=== PATIENT | male | born 1930 | race Caucasian/White ===

== ENCOUNTER 2016-12-10 13:59 | Inpatient (IN) | payer OTHER, MEDICARE ==
[~2016-12-10] VITALS: Ht 162.6 cm; Wt 56.2 kg
--- NOTE | 2016-12-10 14:10 | NUR ---
PT BIBA FROM HOME FOR WEAKNESS. PT REPORTED WHEN HE SITS IN HIS CHAIR FOR TOO LONG HE HAS DIFFICULTY STANDING UP. WHEN HE ATTEMPTED TO STAND HE WAS UNABLE TO. VISITING NURSE CALLED AMBULANCE TO TRANSPORT FOR EVALUATION. UPON ARRIVAL TO ED, PT DENIED HAVING ANY COMPLAINTS. DENIED SYNCOPE AND FEELING FAINT DURING INCIDENT. DENIED C/P AND SOB.
--- NOTE | 2016-12-10 14:11 | NUR ---
OMID RUSSELL AT BEDSIDE FOR EVAL
--- NOTE | 2016-12-10 14:16 | ED AMS/SEIZURE/WEAK/DIZZY ---
History of Present Illness General Chief Complaint: General Adult Stated Complaint: BIBA GENERALIZED WEAKNESS Source: patient, old records, EMS Exam Limitations: no limitations Vital Signs & Intake/Output Vital Signs & Intake/Output Vital Signs Date Time Temp Pulse Resp B/P B/P Pulse O2 O2 Flow FiO2 Mean Ox Delivery Rate 12/10 1526 97.9 70 22 207/95 100 Room Air 12/10 1442 69 198/91 12/10 1435 Room Air 12/10 1405 97.5 86 16 173/94 97 Room Air Allergies Coded Allergies: acetaminophen (From PERCOCET) (UNKNOWN 12/10/16) oxycodone (From PERCOCET) (UNKNOWN 12/10/16) Reconcile Medications Amlodipine Besylate (Unknown Strength) TABLET (Unknown Dose) PO DAILY HEART ( Reported) Diclofenac Sodium (Unknown Strength) TABLET.DR (Unknown Dose) PO BID PAIN ( Reported) Hydralazine HCl 25 MG TABLET 1 TAB PO BID HEART (Reported) Levothyroxine Sodium (Levo-T) 25 MCG TABLET 1 TAB PO DAILY AC THYROID ( Reported) Metoprolol Succinate (Unknown Strength) TAB.ER.24H (Unknown Dose) PO DAILY HEART (Reported) Simvastatin (Simvastatin*) 40 MG TABLET 1 TAB PO QPM CHOLESTEROL (Reported) Sodium Bicarbonate 650 MG TABLET 2 TAB PO BID SUPPLEMENT (Reported) Triage Note: PT BIBA FROM HOME FOR WEAKNESS. PT REPORTED WHEN HE SITS IN HIS CHAIR FOR TOO LONG HE HAS DIFFICULTY STANDING UP. WHEN HE ATTEMPTED TO STAND HE WAS UNABLE TO. VISITING NURSE CALLED AMBULANCE TO TRANSPORT FOR EVALUATION. UPON ARRIVAL TO ED, PT DENIED HAVING ANY COMPLAINTS. DENIED SYNCOPE AND FEELING FAINT DURING INCIDENT. DENIED C/P AND SOB. Triage Nurses Notes Reviewed? yes HPI: Patient is an 86-year-old male brought in by ambulance for evaluation of weakness. Patient reports that he was sitting for a prolonged period of time and he felt that his legs were too weak for him to be able to stand up from his chair. On EMS arrival clinical case manager report that when they attempted to stand the patient and ambulate him that he was very unsteady on his feet. Chronic bilateral lower extremity edema, unchanged from baseline per patient. Mild intermittent cough. Pain is 0 out of 10. Patient denies chest pain, dyspnea, abdominal pain, nausea , vomiting, diarrhea, fevers, chills. (EMI PÉREZ) Past History Medical History Any Pertinent Medical History? see below for history Cardiovascular: CAD, hypertension, hyperlipidemia Gastrointestinal: diverticulosis, ATROPHIC GASTRITIS Renal: chronic kidney disease Musculoskeletal: gout Other Medical Hx: paget disease Pneumonia Vaccine: 05/14/02 Influenza Vaccine: 06/23/07 Surgical History Surgical History: CABG, RIGHT INGUINAL HERNIA REPAIR Psychosocial History Who do you live with Patient/Self Services at Home NONE What is your primary language Nepalese Family History Hx Contributory? No (EMI PÉREZ) Review of Systems Review of Systems Constitutional: Reports: weakness. Denies: chills, fever. EENTM: Reports: no symptoms. Respiratory: Reports: cough. Denies: short of breath. Cardiovascular: Reports: peripheral edema (CHRONIC, UNCHANGED). Denies: chest pain, palpitations, syncope. GI: Denies: abdominal pain, diarrhea, nausea, vomiting. Genitourinary: Reports: no symptoms. Musculoskeletal: Reports: no symptoms. Skin: Reports: no symptoms. Neurological/Psychological: Reports: weakness. Denies: headache, numbness, unable to move lower ext, unable to move upper ext. Hematologic/Endocrine: Denies: bruising, bleeding. Immunologic/Allergic: Denies: splenectomy. (EMI PÉREZ) Physical Exam Physical Exam General Appearance: alert, awake Head: atraumatic, normal appearance Eyes: Bilateral: normal appearance, PERRL, EOMI. Ears, Nose, Throat: hard of hearing. moist mucous membranes, pharynx normal Neck: normal inspection, supple, full range of motion Respiratory: no respiratory distress, mild diffuse rhonchi and rales Cardiovascular: regular rate/rhythm (with premature beats), systolic murmur Peripheral Pulses: 2+ dorsalis pedis (R), 2+ dorsalis pedis (L) Gastrointestinal: soft, non-tender Back: normal inspection, normal range of motion, no vertebral tenderness Extremities: normal range of motion, 2+ bilateral lower extremity edema Neurologic/Psych: awake, alert, oriented x 3, communications department chairperson II-XII nml as tested Skin: warm/dry Lymphatic: no anterior cervical charly Core Measures ACS in differential dx? Yes ASA ordered for poss ACS? No-ACS ruled out CVA/TIA Diagnosis: No Severe Sepsis Present: No Septic Shock Present: No (EMI PÉREZ) Progress Differential Diagnosis: arrythmia, anemia, CVA/stroke, dehydration, encephalitis , electrolyte imbalance, GI bleed, hypoglycemia, hypoxia, intracranial Hem., intracranial mass/tumor, multiple sclerosis, pneumonia, postural hypotension, presyncope, sepsis, UTI/pyelo, vertebrobasilar insuff Plan of Care: Orders Procedure Date/time Status Patient Data 12/10 1524 Active Telemetry/Specimen Preparation Assistant 12/10 1521 Active Admit to inpatient 12/10 1520 Active URINALYSIS 12/10 1412 Active TROPONIN LEVEL 12/10 1412 Complete COMPREHENSIVE METABOLIC PANEL 12/10 1412 Complete CBC WITHOUT DIFFERENTIAL 12/10 1412 Complete B-TYPE NATRIURETIC PEP (BNP) 12/10 1412 Complete MISTAKE 12/10 1404 Active EKG 12/10 1402 Active Laboratory Tests 12/10/16 1430: Anion Gap 14, Estimated GFR 16 L, BUN/Creatinine Ratio 16.1, Glucose 121 H, Calcium 7.1 L, Total Bilirubin 0.5, AST 13 L, ALT 17 L, Alkaline Phosphatase 142 H, Troponin I 0.05, Svt-V-Hjwxumoewwj Pept 5100 H, Total Protein 5.8 L, Albumin 2.7 L, Globulin 3.1, Albumin/Globulin Ratio 0.9 L, CBC w Diff NO MAN DIFF REQ, RBC 3.08 L, MCV 94.4 H, MCH 31.5 H, RDW 13.9, MPV 9.2, Gran % 71.9, Lymphocytes % 20.4 L, Monocytes % 6.6, Eosinophils % 0.7, Basophils % 0.4, Absolute Granulocytes 5.0, Absolute Lymphocytes 1.4, Absolute Monocytes 0.5, Absolute Eosinophils 0, Absolute Basophils 0, PUBS MCHC 33.3 12/10/2016 3:14:54 PM: Results of chest x-ray and labs discussed with patient. Patient was very unsteady on his feet and unable to stand for more than a few seconds during orthostatics. Discussed with Dr. Mcintosh. Likely admission. Troponin and BNP pending. 12/10/2016 3:20:24 PM: Dr. Mcintosh discussed patient with Dr. Jose Rausch for admission. (YVONNE ANNE,EMI) Diagnostic Imaging: Viewed by Me: Radiology Read. Discussed w/RAD: Radiology Read. CXR Impression: PATIENT: SHARONDA AQUINO PRESENT AGE: 86 PATIENT ACCOUNT NO: [id number] : 30 LOCATION: [facility] ORDERING PHYSICIAN: EMI ANNE SERVICE DATE: 12/10/16 EXAM TYPE: RAD - XRY-PORTABLE CHEST XRAY EXAMINATION: XR PORTABLE CHEST CLINICAL INFORMATION: Cough, bilateral lower extremity edema. Rales and rhonchi on examination. Evaluate for pneumonia, CHF. COMPARISON: No relevant prior studies are available for comparison. TECHNIQUE: Portable AP view of the chest was obtained. FINDINGS: Mild increased interstitial markings. Prominence of the perihilar vasculature. No significant pleural effusion. No pneumothorax. Enlargement of cardiomediastinal silhouette. Sternal wires are noted. IMPRESSION: Mild increased interstitial markings, prominence of the perihilar vasculature, and cardiomegaly, which could represent CHF. DICTATED BY: CONRAD ARORA MD DATE/ TIME DICTATED:12/10/161448 AIRCRAFT TOOL MAKER:GRAHAM DATE/TIME TRANSCRIBED: 12/10/161448 CONFIDENTIAL, DO NOT COPY WITHOUT APPROPRIATE AUTHORIZATION. < Electronically signed in Other Vendor System> SIGNED BY: CONRAD ARORA MD 12/10/16 7151 Initial ED EKG: sinus rhythm 79 bpm, RBBB, q waves inferior leads, multiple PAC' s, inverted t waves lead 3 that were not present on previous ekg Prior EKG: changed Rhythm Strip: normal sinus rhythm, PAC (EMI PÉREZ) Departure Departure Time of Disposition: 1518 Disposition: STILL A PATIENT Condition: Stable Clinical Impression Primary Impression: CHF exacerbation Secondary Impressions: Accelerated hypertension, Chronic anemia, CKD (chronic kidney disease) Referrals: UNKNOWN Departure Forms: Customer Survey General Discharge Information (EMI PÉREZ) Admission Note Spoke With: JOSE RAUSCH MD Documentation of Exam: Documentation of any treatments & extenuating circumstances including Concerns Regarding Discharge (functional status, medication knowledge or non-compliance, living conditions, etc.) that warrant an admission rather than observation: [ Telemetry monitoring, cardiology consultation, IV diuresis, nephrology consultation PT evaluation, serial enzymes] PA/AD WRITER Co-Sign Statement Statement: ED Attending supervision documentation- [X] I saw and evaluated the patient. I have also reviewed all the pertinent lab results and diagnostic results. I agree with the findings and the plan of care as documented in the PA's/AD WRITER's documentation. [X] I have reviewed the ED Record and agree with the PA's/AD WRITER's documentation. [] Additions or exceptions (if any) to the PAs/AD WRITER's note and plan are summarized below: [] (DEVANTE RICKS,EAGLE Najera)
--- NOTE | 2016-12-10 14:38 | NUR ---
PORTABLE X-RAY AT BEDSIDE
[2016-12-10 14:50] LABS: ABSOLUTE BASOPHIL COUNT 0 /CUMM (0.0-0.2); ABSOLUTE EOSINOPHIL COUNT 0 /CUMM (0.0-0.7); ABSOLUTE LYMPH COUNT 1.4 /CUMM (1.2-3.4); ABSOLUTE MONOCYTE COUNT 0.5 /CUMM (0.10-0.60); BASOPHIL % 0.4 % (0.0-2.0); EOSINOPHIL % 0.7 % (0-5); GRANULOCYTE % 71.9 % (42.2-75.2); HEMATOCRIT 29.1 % (42-52); MEAN CORPUSCULAR HGB 31.5 PG (27.0-31.0); MEAN CORPUSCULAR HGB CONC 33.3 G/DL (33.0-37.0); MEAN CORPUSCULAR VOLUME 94.4 FL (80.0-94.0); MEAN PLATELET VOLUME 9.2 FL (7.4-10.4); PLATELET COUNT 126 /CUMM (130-400); RBC DISTRIBUTION WIDTH 13.9 % (11.5-14.5); RED BLOOD CELL CT 3.08 /CUMM (4.70-6.10); WHITE BLOOD CELL COUNT 6.9 /CUMM (4.8-10.8)
--- NOTE | 2016-12-10 14:51 | NUR ---
ORTHOSTATIC BPS ASSESSED. PT NOT ORTHOSTATIC. PT DENIED DIZZINESS, SOB, AND PAIN DURING ASSESSMENT. PT REQUIRED ASSISTANCE FROM BOTH DIONNE PATRICIA AND MYSELF TO STAND. PT WASN'T ABLE TO STAND FOR THE TIME IT TOOK TO ASSESS BP. OMID RUSSELL INFORMED
--- NOTE | 2016-12-10 14:59 | RADIOLOGY REPORT ---
EXAMINATION: XR PORTABLE CHEST CLINICAL INFORMATION: Cough, bilateral lower extremity edema. Rales and rhonchi on examination. Evaluate for pneumonia, CHF. COMPARISON: No relevant prior studies are available for comparison. TECHNIQUE: Portable AP view of the chest was obtained. FINDINGS: Mild increased interstitial markings. Prominence of the perihilar vasculature. No significant pleural effusion. No pneumothorax. Enlargement of cardiomediastinal silhouette. Sternal wires are noted. IMPRESSION: Mild increased interstitial markings, prominence of the perihilar vasculature, and cardiomegaly, which could represent CHF.
[2016-12-10] MEDS ORDERED: DICLOFENAC SODI50 M3 PO (15:01)
[2016-12-10] MEDS ORDERED: SODIUM BICARBO650 M1 PO (15:02)
[2016-12-10] MEDS ORDERED: METOPROLOL SUCC50 M2 PO (15:03)
[2016-12-10] MEDS ORDERED: SIMVASTATIN40 M1 PO (15:03)
[2016-12-10] MEDS ORDERED: LEVO-T25 MCG PO (15:04)
[2016-12-10] MEDS ORDERED: AMLODIPINE BESYL5 M1 PO (15:04)
[2016-12-10] MEDS ORDERED: HYDRALAZINE HCL25 M1 PO (15:06)
--- NOTE | 2016-12-10 15:30 | NUR ---
ASSUMED CARE OF PT WHO IS ALERT, SITTING UP ON STRETCHER IN NAD. IV PLACED, MEDICATED FOR HTN. URINAL AT BEDSIDE. PT ABLE TO USE PHONE TO LEAVE MS FOR HIS DTR. AWARE OF PENDING ADMISSION.
--- NOTE | 2016-12-10 15:57 | NUR ---
PT HAS BED ASSIGNMENT 179-2
--- NOTE | 2016-12-10 16:02 | NUR ---
HOUSE STAFF AT BEDSIDE
--- NOTE | 2016-12-10 16:28 | History & Physical ---
ASHLEY MCCABEJAI 12/10/16 1628: General Information and HPI MD Statement: I have seen and personally examined SHARONDA CASTRO and documented this H&P. The patient is a 86 year old M who presented with a patient stated chief complaint of weakness, inability to stand. Source of Information: patient, old records Exam Limitations: no limitations History of Present Illness: Mr Castro, is an 86-year-old man who was known to be in his usual state of health until this a.m. He has a past medical history of CAD s/p CABG( dx'ed 1987), hypertension, hyperlipidemia, CKD, Paget disease, gout. He was brought from his senior housing facility with a chief concern of inability to get out of his recliner chair after prolonged period of sitting 1 day. As per the patient, he reported inability to stand up from his chair after being seen recliner chair for a few hours; felt weak in his lower extremities, and was helped out of his chair. He reported worsening bilateral leg swelling 2 weeks, with no change in his usual ambulation. Also reported cough 2 weeks, nonproductive, occasional. No orthopnea or PND. No chest pain, palpitations, lightheadedness/dizziness, hemoptysis. Does not use any oxygen at home. No change in urinary output in the recent past. No fever or exposure to any sick contacts. Did not report any shortness of breath at all. No nausea or vomiting. No melena or bleeding per rectum. Lives alone in a senior housing facility, uses a walker for ambulation. Reports compliance to medications. Remote history of smoking, no history of alcohol. The patient is hard of hearing. Allergies/Medications Allergies: Coded Allergies: acetaminophen (From PERCOCET) (UNKNOWN 12/10/16) oxycodone (From PERCOCET) (UNKNOWN 12/10/16) Past History Travel History Traveled to [place] past 21 day No Medical History Cardiovascular: CAD, hypertension, hyperlipidemia Gastrointestinal: diverticulosis ATROPHIC GASTRITIS Renal: chronic kidney disease Musculoskeletal: gout Other Medical Hx: paget disease Pneumonia Vaccine: 05/14/02 Influenza Vaccine: 06/23/07 Surgical History Surgical History: CABG, RIGHT INGUINAL HERNIA REPAIR Past Family/Social History Family History Relations & Conditions if any Relation not specified for: *No pertinent family history Psychosocial History Services at Home: NONE Functional Ability ADLs Independent: dressing, eating, toileting, bathing. Ambulation: walker IADLs Independent: telephone. Unknown: shopping, housework, finances, food prep, transportation. Review of Systems Review of Systems Constitutional: Denies: see HPI, chills, fever, unexplained weight loss. EENTM: Denies: blurred vision, hearing changes. Cardiovascular: Reports: peripheral edema. Denies: chest pain, orthopena, palpitations, syncope. Respiratory: Reports: cough. Denies: hemoptysis, orthopnea, short of breath, sputum production, stridor, wheezing. GI: Denies: abdominal pain, melena, nausea, bloody stool, changes in stool. Genitourinary: Denies: frequency. Musculoskeletal: Denies: back pain. Skin: Denies: erythema. Neurological/Psychological: Denies: anxiety. Hematologic/Endocrine: Denies: bruising. Exam & Diagnostic Data Last 24 Hrs of Vital Signs/I&O Vital Signs Date Time Temp Pulse Resp B/P B/P Pulse O2 O2 Flow FiO2 Mean Ox Delivery Rate 12/10 2152 73 168/82 12/10 1750 98.3 73 18 168/82 97 Room Air 12/10 1602 71 24 159/85 99 Room Air 12/10 1530 97.9 70 22 207/95 12/10 1530 97.9 70 22 207/95 12/10 1526 97.9 70 22 207/95 100 Room Air 12/10 1442 69 198/91 12/10 1435 Room Air 12/10 1405 97.5 86 16 173/94 97 Room Air Intake & Output 12/10 1600 12/10 0800 12/10 0000 Intake Total Output Total Balance Patient 150 lb Weight Weight Reported by Patient Measurement Method Physical Exam General Appearance Alert, Oriented X3, Cooperative, No Acute Distress Skin No Breakdown Skin Temp/Moisture Exam: Warm/Dry Sepsis Skin Exam (color): Normal for Ethnicity HEENT Atraumatic, PERRLA, EOMI Neck Supple, No JVD, No thryomegaly, +2 Carotid Pulse wo Bruit, No LAD Lymphatic Cervical nl Cardiovascular Regular Rate, Normal S1, Normal S2, systolic murmur Lungs Normal Air Movement, bilateral crackles and wheezes heard. Abdomen Normal Bowel Sounds, Soft, No Tenderness, No Hepatospenomegaly Neurological Normal Speech, Strength at 5/5 X4 Ext, Normal Tone, Sensation Intact, Cranial Nerves 3-12 NL, Reflexes 2+ Extremities No Clubbing, No Cyanosis, No Edema, Normal Pulses, No Tenderness/ Swelling Vascular Normal Pulses, Pulses Symmetrical Body Front and Back (Adult) 1) Pedal edema 2) Surgical scar 3) Macular/raised lesions, erythematous, not associated with any drainage seen -multiple. Diagnostic Data EKG Results Heart rate 79, multiple PACs, QTC 487. CXR Results Mild increase in interstitial markings in in hilar vasculature Assessment/Plan Assessment: She is an older lady with a past history of coronary artery disease, hypertension, chronic kidney disease who is is being evaluated for inability to stand from a seated position, cough, worsening leg swelling likely due to fluid overload. At the time of admission, vitals temperature 97.5, blood pressure 173/94 ( improved to 159/85), pulse 86, respiratory rate 16, 100 % on room air. Lab findings included no leukocytosis, WBC 6.9, hemoglobin 9.7 (baseline 9.2 on 10/28 ), platelets low 126 (last platelet check 130-reason unclear, no history of alcohol or illicit drug use), normal electrolytes-sodium 137, potassium 4.7, elevated serum creatinine 3.6 (3.2 in 08/30), phosphorus 5.5, calcium 7.9 ( corrected calcium 8.9), albumin 2.7, proBNP 5100. Radiological findings-chest x-ray revealed mild increase in interstitial lung markings perihilar vasculature. Renal ultrasound 08/2016 revealed cortical atrophy bilaterally. Differential diagnosis: #1 CHF exacerbation (fluid overload) #2 worsening renal function- CKD stage IV Below is the problem list and plan: #1 weakness, leg swelling, cough-likely due to fluid overload. CHF exacerbation is in the differential. Repeat echocardiogram to be obtained, after discussing with the court registry officer (last echo was done 6 months ago). Recent use of diuretics by the primary care physician, previous concern for history of CHF. Both physical findings and radiological findings are suggestive of CHF. Patient received intravenous furosemide in the emergency room. Monitor kidney function closely. Check ins and outs. The patient continues to diurese well, and kidney function is stable, may consider further diuresis.CHF diet. #2 anemia lower H&H likely due to anemia of chronic disease. Iron studies, reticulocyte count, Hemoccult stools. #3 chronic kidney disease- elevated serum creatinine. Stage IV. Continue to monitor closely. Hypoperfusion from cardiac dysfunction is a possible explanation as opposed to dehydration. Loss of oncotic pressure, could have set this off to relative dehydration also. No albumin is indicated at this time, if so may try albumin plus Lasix after discussing with hydraulic jack operator (only after echocardiogram was done). Continue patient on sodium bicarbonate. #4 hypertension-continue to monitor closely. Metoprolol, amlodipine, hydralazine by mouth. #5 DVT prophylaxis-subcutaneous heparin. #5 DVT prophylaxis As Ranked By This Provider Problem List: 1. Accelerated hypertension 2. Chronic anemia 3. CKD (chronic kidney disease) 4. CHF exacerbation Core Measures/Miscellaneous Acute Coronary Syndrome ACS Diagnosis: No Cerebrovascular Accident CVA/TIA Diagnosis: No Congestive Heart Failure CHF Diagnosis: No Venous Thromboembolism VTE Risk Factors: Acute medical illness, Age > 40 [facility] prophylaxis d/t: No contraindications No VTE Pharm Prophylaxis d/t: No contraindications VTE Diagnosis: No VTE Type: NONE VTE Confirmed by (Test): NONE Severe Sepsis Severe Sepsis Present: No Septic Shock Septic Shock Present: No Miscellaneous Documentation Attending Case Discussed With: KURTIS RICKS,JOSE Rao Primary Care Physician: JORGE VASQUEZ MD Patient sees these Specialists Dr. Vasquez Level of Patient Care: Telemetry [facility] AIDA RICKS 12/10/16 1834: General Information and HPI Allergies/Medications Home Med list Amlodipine Besylate 5 MG TABLET 0.5 TAB PO DAILY HEART (Reported) Diclofenac Sodium 50 MG TABLET.DR 500 MG PO BID PAIN (Reported) Hydralazine HCl 25 MG TABLET 1 TAB PO BID HEART (Reported) Levothyroxine Sodium (Levo-T) 25 MCG TABLET 1 TAB PO DAILY AC THYROID ( Reported) Metoprolol Succ XL (Toprol XL) 25 MG TAB 1 TAB PO DAILY Heart (Reported) Simvastatin (Simvastatin*) 40 MG TABLET 1 TAB PO QPM CHOLESTEROL (Reported) Sodium Bicarbonate 650 MG TABLET 2 TAB PO BID SUPPLEMENT (Reported) Resident Review Statement Resident Statement: examined this patient, discussed with athletic training internship, agreed with athletic training internship, discussed with family, reviewed EMR data (avail), discussed with nursing , reviewed images, amended to note Other Findings: 86 yo male with pmh of CAD s/p CABG (1987) following Dr. Rausch, HTN, HLD, CKD stage [address] Em, gout, hx of paget's disease BIBA from home due to generalized weakness with difficulty of walking. Today he was sitting on a recliner around 2 hrs, and then he couldn't get up from the chair due to generalized weakness. He denies any chest pain or shortness of breath/orthopnea. He was active using his walker at baseline. He has dry cough for 2-3 weeks without fever/chills, sputum. He has chronic LE edema for 6 months, and he had renal US in . He's not taking any diuretics as home medication. V/S: 97.9F TX 70 RR 24 BP 159/85 99% on RA, alert, oriented, not in acute distress, decreased hearing, Lt. pupil size 5mm fixed (s/p cataract surgery), pale conjunctiva, EOM intact, no JVD, regular rate, normal S2/S2, bilateral crackles upper lungs, soft, non-tender abdomen, normal bowel sounds, 2+LE pitting edema with chronic erythematous skin changes (> 1yr), normal pulses, motor 5/5 moving all 4 extremities, sensation intact, cranial nerves grossly intact, Labs: Hb/Hct 9.7/29.1 MCV 94.4 Plt 126, K 4.7, Bicarb 16, BUN/Cr 58/3.6, trop 0.05, proBNP 5100, iron 49, TIBC 196 CXR: Mild increased interstitial markings, prominence of the perihilar vasculature, and cardiomegaly, which could represent CHF. EKG: polymorphic p waves SR 79, RBBB, old q waves inferior leads, multiple PAC's , isolated T inv lead III 1. Generalized weakness: pt has acute CHF with bilateral LE edema & macrocytic anemia (Last Hb 9.2 in ). Anemia most likely from CKD. Will check guiac stool, iron studies, Vit B12, folate. Will get PT evaluation. Fall precaution. 2. Acute CHF: pt was given IV lasix 20mg x once, pt has bilateral crackles with 2+ pitting edema. Will get cardiology consult, echocardiogram, serial EKG/ troponins, hold further diuresis for now, f/u BEP in AM and discuss lasix use. 3. Hypertensive urgency/Hx CAD s/p CABG:In ED, BP reaching 207/95, after po hydralazine BP decreased to 159/85. Monitor closely, keep SBP aroudn 160s to prevent rapid correction. Continue home dose po amlodipine, metoprolol, and hydralazine 4. Hypothyroidism: c/w levothyroxine 0.025mg daily, TFT within normal. 5. Thrombocytopenia: Plt 126, monitor plt with SC heparin. 6. CKD stage 4/metabolic acidosis: Worsening Cr (3.2 in October-> 3.6 now), will get nephrology consult. Continue bicarb. 7. HLD: c/w lipitor Pain pathway DVT ppx: SC heparin Full code. KURTIS RICKS,JOSE 12/11/16 0956: Attending MD Review Statement Attending Statement Attending MD Statement: examined this patient, discuss w/resident/PA/SUPERVISOR SCENIC ARTS, agreed w/resident/PA/SUPERVISOR SCENIC ARTS, reviewed EMR data (avail), discussed with nursing, discussed with case mgmt, reviewed images Attending Assessment/Plan: See medical brief addendum note dated 12/10/2016.
--- NOTE | 2016-12-10 16:28 | NUR ---
REPORT GIVEN TO MARCY ON [facility], WILL CALL TRANSPORT WHEN HOUSE STAFF EVAL IS COMPLETE.
[2016-12-10] MEDS ORDERED: TOPROL XL25 M1 PO (16:32)
--- NOTE | 2016-12-10 16:51 | Admission Certification ---
Admission Certification Certification Statement - As attending physician, I certify that at the time of - admission, based on clinical presentation, severity of - symptoms, need for further diagnostic testing and - therapeutic interventions, and risk of adverse outcomes - without in-hospital treatment, in my clinical assessment, - this patient requires an acute hospital stay for a minimum - of two nights or longer. I have also considered psychsocial - factors such as support system, advanced age, financial - issues, cognitive issues, and failed out-patient treatments, - past re-admission history, safety of patient, and lack of - compliance as applicable. Specific rationale supporting this admission is: Severe weakness and likely acute on chronic CHF.
--- NOTE | 2016-12-10 16:55 | PN- Att Addend ---
Attending Addendum Attending Brief Note 86-year-old male with past medical history of Paget's disease, gout, hypertension and CKD who lives in an assisted living facility and for the past 2 days or so has been feeling very weak and today the aide brought him in for weakness, difficulty ambulation and questionable worsening lower extremity edema. He has chronic edema, he is a poor informant so it's really hard to tell whether the leg swelling is worse but something has changed within the last 24- 48 hours that has made him profoundly weak. On exam he has some rales and rhonchi, and he has bilateral lower extremity edema. Labs are notable for SRIKANTH on CKD. He lives at creatinine in the 3-3.2 range and he appears to be 3.6 with an anion gap acidosis that's likely secondary to his CKD. Chest x-ray is being read as increased interstitial markings. His UA is pending and that appears to be no focus of infection. He had uncontrolled accelerated hypertension in the ER that responded to medications and chronic anemia. Of note he's been seeing Juventino Em MD since August for progression of his CKD. At this point will bring him into telemetry, I don't think we need to actively diurese him in fact I worry that will make his renal function worse. We need to control his blood pressure aggressively and continue his Norvasc, hydralazine and metoprolol. We need to check an echo to see his EF as I don't find any echo documented here. He's had a renal ultrasound in August that's ruled out an obstruction I don't think we need to repeat that but we need to trend his BUN and creatinine closely and call renal to see him. DVT prophylaxis, PT eval and follow-up.
[2016-12-10 17:50] VITALS: BP 168/82
[2016-12-11 00:08] VITALS: BP 140/70
[2016-12-11 07:57] VITALS: BP 158/84
[2016-12-11 09:55] LABS: ABSOLUTE BASOPHIL COUNT 0 /CUMM (0.0-0.2); ABSOLUTE EOSINOPHIL COUNT 0.1 /CUMM (0.0-0.7); ABSOLUTE GRANULOCYTE CT 6.7 /CUMM (1.4-6.5); ABSOLUTE LYMPH COUNT 1.6 /CUMM (1.2-3.4); ABSOLUTE MONOCYTE COUNT 0.4 /CUMM (0.10-0.60); BASOPHIL % 0.3 % (0.0-2.0); EOSINOPHIL % 0.6 % (0-5); GRANULOCYTE % 76.2 % (42.2-75.2); MEAN CORPUSCULAR HGB 31.3 PG (27.0-31.0); MEAN CORPUSCULAR HGB CONC 33.4 G/DL (33.0-37.0); MEAN CORPUSCULAR VOLUME 93.8 FL (80.0-94.0); MEAN PLATELET VOLUME 9.6 FL (7.4-10.4); PLATELET COUNT 155 /CUMM (130-400); WHITE BLOOD CELL COUNT 8.8 /CUMM (4.8-10.8)
--- NOTE | 2016-12-11 09:59 | PN- Att Addend ---
Attending Addendum Attending Brief Note Patient seen and examined. He is not a great informant and extremely hard of hearing. He still says he feels weak. On exam his pressure is better at 158/84 , heart rate is 72, breathing at 16-18 and satting over 90% on room air. His lungs are clear to auscultation anteriorly, heart is S1-S2 regular, abdomen is soft and he has no edema. His labs are pending. He is an 86-year-old with known history of CAD and CABG in the past, CKD with a baseline creatinine in the 3-3.2 range actively followed by Juventino Em MD, chronic anemia, chronic gout and Paget's disease. He is here from the assisted living facility with weakness. On admission his chest x-ray was read as increased interstitial markings suggestive of CHF and his BNP was elevated at 5100 and he had an elevated creatinine of 3.6 from his baseline of 3.2. Of note his home med list does have a high-dose NSAID on board. I don't think he is in florid CHF. He did get 1 dose of IV Lasix in the ER and I worry that his kidney function will be even worse today. We have a nephrology consult pending and an echo pending. I don't think he needs any more active diureses . We need to watch his renal function closely. He had very accelerated uncontrolled hypertension that's better now on his usual dose of Norvasc, hydralazine and his beta misa and will need to follow that. PT eval pending.
[2016-12-11 10:09] LABS: HEMATOCRIT 34.7 % (42-52)
--- NOTE | 2016-12-11 15:53 | Cons- Cardiology ---
General Information and HPI Consulting Request Date of Consult: 12/11/16 Requested By: KURTIS RICKS,JOSE Rao History of Present Illness: Mr Castro is an 86-year-old man with history of coronary artery disease s/p CABG, hypertension, dyslipidemia and chronic kidney disease. He was brought to the ER for evaluation of weakness marked by his inability to arise out of his reclining chair. He has also noted bilateral leg edema over the past two weeks. Finally, he has noted a cough productive of white sputum. There is no associated fever, chills, nausea or vomiting. He also denies chest discomfort, shortness of breath, lightheadedness or palpitations. In the ER the patient had a creatinine of 3.6 which is slightly increased from his baseline and increased interstitial marking consistent with CHF. He was also severely hypertensive. Allergies/Medications Allergies: Coded Allergies: acetaminophen (From PERCOCET) (UNKNOWN 12/10/16) oxycodone (From PERCOCET) (UNKNOWN 12/10/16) Home Med List: Amlodipine Besylate 5 MG TABLET 0.5 TAB PO DAILY HEART (Reported) Diclofenac Sodium 50 MG TABLET.DR 500 MG PO BID PAIN (Reported) Hydralazine HCl 25 MG TABLET 1 TAB PO BID HEART (Reported) Levothyroxine Sodium (Levo-T) 25 MCG TABLET 1 TAB PO DAILY AC THYROID ( Reported) Metoprolol Succ XL (Toprol XL) 25 MG TAB 1 TAB PO DAILY Heart (Reported) Simvastatin (Simvastatin*) 40 MG TABLET 1 TAB PO QPM CHOLESTEROL (Reported) Sodium Bicarbonate 650 MG TABLET 2 TAB PO BID SUPPLEMENT (Reported) Review of Systems Review of Systems: A twelve point review of systems was unremarkable. Past History Travel History Traveled to [place] past 21 day No Medical History Blood Transfusion Hx: No Neurological: NONE [place]: [place] Cardiovascular: CAD, hypertension, hyperlipidemia Respiratory: NONE Gastrointestinal: diverticulosis ATROPHIC GASTRITIS Hepatic: NONE Renal: chronic kidney disease Musculoskeletal: gout Psychiatric: NONE Endocrine: NONE Blood Disorders: NONE Cancer(s): NONE Other Medical Hx: paget disease Surgical History Surgical History: CABG, RIGHT INGUINAL HERNIA REPAIR Family History Relations & Conditions If Any: Relation not specified for: *No pertinent family history Psychosocial History Where Do You Live? Home Services at Home: Nursing Smoking Status: Former Smoker Functional Ability ADLs Independent: dressing, eating, toileting, bathing. Ambulation: walker IADLs Independent: telephone. Unknown: shopping, housework, finances, food prep, transportation. Exam & Diagnostic Data Vital Signs and I&O Vital Signs Date Time Temp Pulse Resp B/P B/P Pulse O2 O2 Flow FiO2 Mean Ox Delivery Rate 12/11 0841 158/84 12/11 0840 158/84 12/11 0840 1458/84 12/11 0757 98.1 70 18 158/84 94 Room Air 12/11 0008 98.0 52 18 140/70 97 Room Air 12/11 0000 96 Room Air 12/10 2152 73 168/82 12/10 1750 98.3 73 18 168/82 97 Room Air 12/10 1602 71 24 159/85 99 Room Air Intake & Output 12/11 1600 12/11 0800 12/11 0000 12/10 1600 12/10 0800 12/10 0000 Intake Total 400 100 200 Output Total 600 400 900 Balance -200 -300 -700 Intake, Oral 400 100 200 Output, Urine 600 400 900 Patient 158 lb 150 lb Weight Weight Reported by Patient Measurement Method Physical Exam: General: WD/ WN male in NAD; alert and oriented x 3 HEENT: NC/ AT, PERRL, EOMI, severe presbycussis Neck: no JVD, no carotid bruit Heart: RRR with ectopy and 2/6 systolic murmur Lungs: crackles and upper airway congestion bilaterally Abdomen: soft, NT, +ve bowel sounds Extremities: 1+ leg edema Assessment/Plan Assessment/Plan * This patient has mild fluid overload with upper airway congestion and cough suggestive of a bronchitis. Mild CHF may be related to very high afterload from his severe hypertension. It should be noted that both hydralazine and Amlodipine can cause fluid retension and his renal failure may also be a contributor. A small standing dose of Lasix at 40mg daily is reasonable. In the setting of renal insufficiency he is unlikely to respond to small doses of diuretic but we also want to avoid overdiuresis and a pre-renal state since this could make his renal function wors. At present, he appears euvolemic. * Hypertension: Increase Hydralazine to 50mg BID and stop Amlodipine. Increase Metoprolol ER to 50mg daily. He should be on a low sodium diet and should avoid overuse of NSAIDS. * Obtain an echocardiogram. Consult Acknowledgment - Thank you for your consult request.
[2016-12-11 16:10] VITALS: BP 180/90
--- NOTE | 2016-12-11 23:39 | NUR ---
PT WAS BRADYCARDIC LOW 50, UNSUSTAINED. PT WAS SLEEPING. PER CUSTOMER PROGRAM MANAGER, HEART RATE AD BEEN IN 50'S BEFORE. INFOMRED HAIR TINTER SHIREEN.
[2016-12-12 00:22] VITALS: BP 160/78
[2016-12-12 07:00] VITALS: BP 138/72
--- NOTE | 2016-12-12 08:08 | PN- Housestaff ---
DELONTE MCCABE 12/12/16 0807: Subjective Follow-up For: - CHF exacerbation Complaints: no complaints Tele-Events Since Last Visit: Normal sinus rhythm, bradycardia heart rate 48, (lowest), range 50-70s, multiple PACs, first degree heart block. Subjective: He was comfortable this morning. Did not have any complaints. No chest pain, palpitations, shortness of breath. He remained afebrile overnight. Vitals were stable overnight. Discussed in detail about the plan with the patient's daughter over the phone. Review of Systems Constitutional: Reports: see HPI. Objective Last 24 Hrs of Vital Signs/I&O Vital Signs Date Time Temp Pulse Resp B/P B/P Pulse O2 O2 Flow FiO2 Mean Ox Delivery Rate 12/12 0022 98.5 64 20 160/78 97 12/12 0000 Room Air 12/11 1638 180/90 12/11 1610 99.1 63 16 180/90 96 Room Air 12/11 0841 158/84 12/11 0840 158/84 12/11 0840 1458/84 Intake & Output 12/12 1600 12/12 0800 12/12 0000 Intake Total 200 480 Output Total 400 700 Balance -200 -220 Intake, Oral 200 480 Output, Urine 400 700 Patient 124 lb Weight Physical Exam General Appearance: No Acute Distress Other Physical Findings: General Exam: AAOx3, No acute distress, Skin: No rashes, no breakdown HEENT: PERRLA, EOMI Neck: Supple, No JVD No cervical lymphadenopathy CVS: Reg Rate, Normal S1,S2, No MGR Resp: Normal air entry, b/l ronchi/rales Abdomen: Soft, No tenderness, Normal Bowel Sounds Neuro: Normal Speech, Strength 5/5 b/l x 4 extremities, Sensation intact, CN III -XII NL, Reflexes 2+ Extremities: No cyanosis, pedal edema 1+ Current Medications: Current Medications Sig/Miriam Start time Last Medication Dose Route Stop Time Status Admin Acetaminophen 325 MG Q6P PRN 12/10 1645 AC PO Amlodipine Besylate 2.5 MG DAILY 12/11 1000 DC 12/11 PO 0841 Atorvastatin Calcium 20 MG 1700 12/10 1700 AC 12/11 PO 1638 Benzonatate 100 MG TID 12/11 1000 AC 12/11 PO 2048 Furosemide 40 MG DAILY 12/11 1606 AC 12/11 PO 1637 Guaifenesin/Codeine 10 ML Q6P PRN 12/11 0915 CAN Phosphate PO Heparin Sodium 5,000 UNIT Q8 12/10 2199 AC 12/12 (Porcine) SC 0557 Hydralazine HCl 50 MG BID 12/11 2200 AC 12/11 PO 1638 Hydralazine HCl 25 MG BID 12/10 2200 DC 12/11 PO 0840 Hydromorphone HCl 0.5 MG Q6P PRN 12/10 1645 AC IV Levothyroxine Sodium 0.025 MG DAILY AC 12/11 0700 AC 12/12 PO 0557 Metoprolol Succinate 50 MG DAILY 12/12 1000 AC PO Metoprolol Succinate 25 MG DAILY 12/11 1000 DC 12/11 PO 0840 Morphine Sulfate 2 MG Q6 PRN 12/10 1645 AC 12/11 IV 0034 Patient Medication 1 UNIT ONE NR 12/11 1630 DC Teaching ED 12/11 1700 Patient Medication 1 UNIT ONE NR 12/11 1630 [place] Teaching ED 12/11 1700 Sodium Bicarbonate 650 MG BID 12/10 2199 AC 12/11 PO 2048 Last 24 Hrs of Lab/Deshawn Results Last 24 Hrs of Labs/Mics: Laboratory Tests 12/12/16 0705: Sodium Pending, Potassium Pending, Chloride Pending, Carbon Dioxide Pending, Anion Gap Pending, BUN Pending, Creatinine Pending, BUN/Creatinine Ratio Pending , Magnesium Pending, CBC w Diff Pending, WBC Pending, RBC Pending, Hgb Pending, Hct Pending, MCV Pending, MCH Pending, RDW Pending, Plt Count Pending, MPV Pending, PUBS MCHC Pending 12/11/16 0840: Troponin I 0.07 12/11/16 0840: Anion Gap 15, Estimated GFR 16 L, BUN/Creatinine Ratio 15.9, Triglycerides 138, Cholesterol 210 H, LDL Cholesterol, Calc 124, HDL Cholesterol 59, Cholesterol/ HDL Ratio 4, CBC w Diff NO MAN DIFF REQ, RBC 3.70 L, MCV 93.8, MCH 31.3 H, RDW 14.0, MPV 9.6, Gran % 76.2 H, Lymphocytes % 17.9 L, Monocytes % 5.0, Eosinophils % 0.6, Basophils % 0.3, Absolute Granulocytes 6.7 H, Absolute Lymphocytes 1.6, Absolute Monocytes 0.4, Absolute Eosinophils 0.1, Absolute Basophils 0, PUBS MCHC 33.4 Assessment/Plan Assessment: Mr Castro, is an 86-year-old man who has a past medical history of CAD s/p CABG ( dx'ed 1987), hypertension, hyperlipidemia, CKD, Paget disease, gout ? Parkinsons who is being evaluated for a chief concern of inability to get out of his recliner chair after prolonged period of sitting 1 day. At the time of admission, vitals temperature 97.5, blood pressure 173/94 ( improved to 159/85), pulse 86, respiratory rate 16, 100 % on room air. Lab findings included no leukocytosis, WBC 6.9, hemoglobin 9.7 (baseline 9.2 on 10/28 ), platelets low 126 (last platelet check 130-reason unclear, no history of alcohol or illicit drug use), normal electrolytes-sodium 137, potassium 4.7, elevated serum creatinine 3.6 (3.2 in 08/30), phosphorus 5.5, calcium 7.9 ( corrected calcium 8.9), albumin 2.7, proBNP 5100. Radiological findings-chest x-ray revealed mild increase in interstitial lung markings perihilar vasculature. Renal ultrasound 08/2016 revealed cortical atrophy bilaterally. Differential diagnosis: #1 CHF exacerbation (fluid overload) #2 worsening renal function- CKD stage IV Below is the problem list and plan: #1 weakness, leg swelling, cough-likely due to fluid overload. CHF in the differentials, but doesnt have any physical examination findings. Pt received iv furosemide in the ER. Worsening kidney function likely contributing to pedal edema. Echocardiogram to be obtained. Pagets disease is known to high output failure too. #2 anemia lower H&H likely due to anemia of chronic disease. Stable. #3 chronic kidney disease- elevated serum creatinine. Stage IV. Continue to monitor closely. History indicated chronic NSAID use. Repeat ultrasound as per Renal consultatnt. Last usg was done in 08/30. Hold lasix for now. Continue sodium bicarbonate. #4 hypertension-continue to monitor closely. Pt was bradycardic this am. The dose of metoprolol 50 xl was decreased to 25mg daily. Monitor on telemetry. Amlodipine was discontinued. #5 DVT prophylaxis-subcutaneous heparin. Problem List: 1. Chronic anemia 2. CKD (chronic kidney disease) Pain Ratin Pain Location: none Pain Goal: Pain 4 or less Pain Plan: tylenol Tomorrow's Labs & Rationales: bep- pt has high sr cr. DIVYA RICKS,HÉCTOR 12/12/16 1420: Attending MD Review Statement Attending Statement Attending MD Statement: examined this patient, discuss w/resident/PA/SUBSTANCE ABUSE NURSE, agreed w/resident/PA/SUBSTANCE ABUSE NURSE, reviewed EMR data (avail), discussed with nursing, discussed with case mgmt, reviewed images, amended to note Attending Assessment/Plan: Patient seen and examined, feels well. Denies any sob, chest pain, has some le edema. Vital Signs Date Time Temp Pulse Resp B/P B/P Pulse O2 O2 Flow FiO2 Mean Ox Delivery Rate 12/12 1046 Room Air 12/12 0846 98.7 78 18 96 Room Air 12/12 0822 64 140/72 12/12 0822 64 140/72 12/12 0800 Room Air 12/12 0700 138/72 12/12 0022 98.5 64 20 160/78 97 12/12 0000 Room Air 12/11 1638 180/90 12/11 1610 99.1 63 16 180/90 96 Room Air on exam: aox3, nad, hard of hearing. cv; s1,s2, rrr resp; clear b/l abd; soft, nt, bs+ ext; 1+ edema b/l Laboratory Tests 12/12 0705 Chemistry Sodium (137 - 145 mmol/L) 136 L Potassium (3.5 - 5.1 mmol/L) 4.6 Chloride (98 - 107 mmol/L) 108 H Carbon Dioxide (22 - 30 mmol/L) 17 L Anion Gap (5 - 16) 11 BUN (9 - 20 mg/dL) 61 H Creatinine (0.7 - 1.2 mg/dL) 3.7 H Estimated GFR (>60 ml/min) 16 L BUN/Creatinine Ratio (7 - 25 %) 16.5 Magnesium (1.6 - 2.3 mg/dL) 1.4 L Hematology CBC w Diff NO MAN DIFF REQ WBC (4.8 - 10.8 /CUMM) 7.2 RBC (4.70 - 6.10 /CUMM) 3.08 L Hgb (14.0 - 18.0 G/DL) 9.7 L Hct (42 - 52 %) 29.0 L MCV (80.0 - 94.0 FL) 94.2 H MCH (27.0 - 31.0 PG) 31.4 H RDW (11.5 - 14.5 %) 13.2 Plt Count (130 - 400 /CUMM) 131 MPV (7.4 - 10.4 FL) 9.4 Gran % (42.2 - 75.2 %) 79.8 H Lymphocytes % (20.5 - 51.1 %) 15.6 L Monocytes % (1.7 - 9.3 %) 4.3 Eosinophils % (0 - 5 %) 0.1 Basophils % (0.0 - 2.0 %) 0.2 Absolute Granulocytes (1.4 - 6.5 /CUMM) 5.8 Absolute Lymphocytes (1.2 - 3.4 /CUMM) 1.1 L Absolute Monocytes (0.10 - 0.60 /CUMM) 0.3 Absolute Eosinophils (0.0 - 0.7 /CUMM) 0 Absolute Basophils (0.0 - 0.2 /CUMM) 0 PUBS MCHC (33.0 - 37.0 G/DL) 33.3 A/P: 86 y/o M with pmh sig for CAD s/p CABG( dx'ed 1987), hypertension, hyperlipidemia, CKD, Paget disease, gout admitted with generalized weakness and difficulty ambulation. Initially he has been admitted for possible acute CHF but does not found to be in acute decompensated CHF. Was diuresed with Lasix but now as per cardiology, can use low-dose Lasix for lower externally edema only if okay with nephrology because in the past his Lasix was discontinued by nephrology secondary to having acute on chronic renal failure. Please replete magnesium with 1 g IV Man. Continue home dose of beta misa per cardiology. Continue hydralazine per cardiology. Please check with nephrology about continuing the patient on low-dose( 20 mg daily) Lasix. Continue the current medications. DVT prophylaxis: Heparin subcutaneous. PT eval has been obtained and they are recommending rehabilitation. Possible discharge tomorrow.
[2016-12-12 08:17] LABS: ABSOLUTE BASOPHIL COUNT 0 /CUMM (0.0-0.2); ABSOLUTE EOSINOPHIL COUNT 0 /CUMM (0.0-0.7); ABSOLUTE GRANULOCYTE CT 5.8 /CUMM (1.4-6.5); ABSOLUTE LYMPH COUNT 1.1 /CUMM (1.2-3.4); ABSOLUTE MONOCYTE COUNT 0.3 /CUMM (0.10-0.60); BASOPHIL % 0.2 % (0.0-2.0); EOSINOPHIL % 0.1 % (0-5); GRANULOCYTE % 79.8 % (42.2-75.2); MEAN CORPUSCULAR HGB 31.4 PG (27.0-31.0); MEAN CORPUSCULAR HGB CONC 33.3 G/DL (33.0-37.0); MEAN CORPUSCULAR VOLUME 94.2 FL (80.0-94.0); MEAN PLATELET VOLUME 9.4 FL (7.4-10.4); PLATELET COUNT 131 /CUMM (130-400); RBC DISTRIBUTION WIDTH 13.2 % (11.5-14.5); RED BLOOD CELL CT 3.08 /CUMM (4.70-6.10); WHITE BLOOD CELL COUNT 7.2 /CUMM (4.8-10.8)
--- NOTE | 2016-12-12 12:26 | NUR ---
PT'S HEART RATE WENT DOWN TO HIGH 40'S WITH MULTIPLE PAC'S. MD DELONTE MCCABE MADE AWARE. WILL CONTINUE TO MONITOR.
--- NOTE | 2016-12-12 12:45 | PN- Cardiology ---
Subjective Subjective: The patient is sitting in his chair and resting completely. He continues to deny any dyspnea, chest pain, orthopnea, or paroxysmal nocturnal dyspnea. He feels his lower extremity edema is at baseline. Objective Vital Signs and I&Os Vital Signs Date Time Temp Pulse Resp B/P B/P Pulse O2 O2 Flow FiO2 Mean Ox Delivery Rate 12/12 1046 Room Air 12/12 0846 98.7 78 18 96 Room Air 12/12 0822 64 140/72 12/12 0822 64 140/72 12/12 0800 Room Air 12/12 0700 138/72 12/12 0022 98.5 64 20 160/78 97 12/12 0000 Room Air 12/11 1638 180/90 12/11 1610 99.1 63 16 180/90 96 Room Air Intake & Output 12/12 1600 12/12 0800 12/12 0000 12/11 1600 12/11 0800 12/11 0000 Intake Total 200 480 400 100 200 Output Total 400 700 600 400 900 Balance -200 -220 -200 -300 -700 Intake, Oral 200 480 400 100 200 Output, Urine 400 700 600 400 900 Patient 124 lb 158 lb Weight Physical Exam: General: no apparent distress. Alert. Eyes: No obvious scleral icterus. HEENT: No jugular venous distention or abnormal jugular venous pulsations. Cardiovascular: Normal intensity S1/S2. Regular. 1/6 SM. Respiratory: Lungs clear to auscultation bilaterally. Abdomen: Soft, nontender with no guarding or rebound tenderness. Musculoskeletal: No clubbing or cyanosis noted, trace-1+ lower extremity edema Skin: warm Neurologic: No gross focal deficits noted. Current Medications: Current Medications Sig/Miriam Start time Last Medication Dose Route Stop Time Status Admin Acetaminophen 325 MG Q6P PRN 12/10 1645 AC PO Amlodipine Besylate 2.5 MG DAILY 12/11 1000 DC 12/11 PO 0841 Atorvastatin Calcium 20 MG 1700 12/10 1700 AC 12/11 PO 1638 Benzonatate 100 MG TID 12/11 1000 AC 12/12 PO 0822 Furosemide 40 MG DAILY 12/11 1606 AC 12/12 PO 0822 Heparin Sodium 5,000 UNIT Q8 12/10 2199 AC 12/12 (Porcine) SC 0557 Hydralazine HCl 50 MG BID 12/11 2199 AC 12/12 PO 0822 Hydralazine HCl 25 MG BID 12/10 2199 DC 12/11 PO 0840 Hydromorphone HCl 0.5 MG Q6P PRN 12/10 1645 AC IV Levothyroxine Sodium 0.025 MG DAILY AC 12/11 0700 AC 12/12 PO 0557 Magnesium Oxide 400 MG ONE ONE 12/12 0845 DC 12/12 PO 12/12 0846 0929 Metoprolol Succinate 25 MG DAILY 12/13 1000 UNVr PO Metoprolol Succinate 50 MG DAILY 12/12 1000 DC 12/12 PO 0822 Metoprolol Succinate 25 MG DAILY 12/11 1000 DC 12/11 PO 0840 Morphine Sulfate 2 MG Q6 PRN 12/10 1645 AC 12/11 IV 0034 Patient Medication 1 UNIT ONE NR 12/11 1630 [place] Teaching ED 12/11 1700 Patient Medication 1 UNIT ONE NR 12/11 1630 AR Teaching ED 12/11 1700 Sodium Bicarbonate 650 MG BID 12/10 2200 AC 12/12 PO 0822 Results Last 48 Hrs of Labs/Mics: Laboratory Tests 12/12/16 0705: Anion Gap 11, Estimated GFR 16 L, BUN/Creatinine Ratio 16.5, Magnesium 1.4 L, CBC w Diff NO MAN DIFF REQ, RBC 3.08 L, MCV 94.2 H, MCH 31.4 H, RDW 13.2, MPV 9.4, Gran % 79.8 H, Lymphocytes % 15.6 L, Monocytes % 4.3, Eosinophils % 0.1, Basophils % 0.2, Absolute Granulocytes 5.8, Absolute Lymphocytes 1.1 L, Absolute Monocytes 0.3, Absolute Eosinophils 0, Absolute Basophils 0, PUBS MCHC 33.3 12/11/16 0840: Troponin I 0.07 12/11/16 0840: Anion Gap 15, Estimated GFR 16 L, BUN/Creatinine Ratio 15.9, Triglycerides 138, Cholesterol 210 H, LDL Cholesterol, Calc 124, HDL Cholesterol 59, Cholesterol/ HDL Ratio 4, CBC w Diff NO MAN DIFF REQ, RBC 3.70 L, MCV 93.8, MCH 31.3 H, RDW 14.0, MPV 9.6, Gran % 76.2 H, Lymphocytes % 17.9 L, Monocytes % 5.0, Eosinophils % 0.6, Basophils % 0.3, Absolute Granulocytes 6.7 H, Absolute Lymphocytes 1.6, Absolute Monocytes 0.4, Absolute Eosinophils 0.1, Absolute Basophils 0, PUBS MCHC 33.4 12/11/16 0226: Troponin I 0.06 12/10/16 2030: Troponin I 0.05 12/10/16 1800: Urine Color YEL, Urine Clarity CLEAR, Urine pH 6.0, Ur Specific [place] 1.020, Urine Protein >=300 H, Urine Ketones NEG, Urine Nitrite NEG, Urine Bilirubin NEG, Urine Urobilinogen 0.2, Ur Leukocyte Esterase NEG, Ur Microscopic SEDIMENT EXAMINED, Urine RBC RARE, Urine Hemoglobin TRACE-INTACT H, Urine Glucose NEG 12/10/16 1430: Anion Gap 14, Estimated GFR 16 L, BUN/Creatinine Ratio 16.1, Glucose 121 H, Calcium 7.1 L, Iron 49, TIBC 196 L, Ferritin 162.0, Total Bilirubin 0.5, AST 13 L, ALT 17 L, Alkaline Phosphatase 142 H, Troponin I 0.05, Pro-B- Natriuretic Pept 5100 H, Total Protein 5.8 L, Albumin 2.7 L, Globulin 3.1, Albumin/Globulin Ratio 0.9 L, Vitamin B12 351, Folate 14.0, TSH 3.220, Free T4 1.02, CBC w Diff NO MAN DIFF REQ, RBC 3.08 L, MCV 94.4 H, MCH 31.5 H, RDW 13.9, MPV 9.2, Gran % 71.9, Lymphocytes % 20.4 L, Monocytes % 6.6, Eosinophils % 0.7, Basophils % 0.4, Absolute Granulocytes 5.0, Absolute Lymphocytes 1.4, Absolute Monocytes 0.5, Absolute Eosinophils 0, Absolute Basophils 0, PUBS MCHC 33.3 Recent Imaging Studies: Telemetry tracings were personally reviewed and shows sinus rhythm and sinus bradycardia Assessment/Plan Assessment/Plan 1. Weakness 2. CAD/History of remote CABG 3. CKD 4. Hx IVCD 5. History of mild aortic stenosis 6. History of chronic lower extremity edema 7. History of hypertension, uncontrolled 8. Anemia The patient does not carry a known diagnosis of congestive heart failure and did not complain of any dyspnea/orthopnea. He does have a history of lower extremity edema but at one point his Lasix was discontinued in the setting of worsening renal function (he is known to Nephrology). I would keep the patient on his outpatient dose of beta misa. Agree with discontinuation of Norvasc in the setting of chronic lower extremity edema. Continue on the hydralazine. Given the patient's history of known coronary artery disease he should be on low-dose daily aspirin in the absence of an obvious contraindication. An echocardiogram is currently pending. I do not think the patient needs diuretics from a heart failure standpoint but may benefit from low-dose diuretic for the lower extremity edema but would recommend discussing this with nephrology first as it appears they had previously discontinued the Lasix. Anuel Seymour MD [facility] Continue telemetry? No
--- NOTE | 2016-12-12 14:28 | Cons- Nephrology ---
General Information and HPI Consulting Request Date of Consult: 12/12/16 Requested By: HÉCTOR STOKES MD Reason for Consult: SRIKANTH History of Present Illness: I have been asked to see this 86-year-old gentleman because of a rising serum creatinine. 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 His baseline creatinine has recently been in the low 3's. He was now admitted on 12/10/16 because of severe weakness with inability to get out of his recliner. His BUN on admission was 58 and kajal slightly to 61 as of today while his creatinine has ranged from 3.6-3.7 over these 3 days. There has been no exposure to parenteral contrast material, aminoglycosides or NSAIDs. He was on a diuretic (Lasix) which has been discontinued. There have been no hypotensive episodes. In fact, blood pressure was very elevated at the time of admission and is currently ranging from 140-160 systolic. Chest x-ray showed mild increase in interstitial markings and prominence of the perihilar vasculature with cardiomegaly. It should be noted that he had been on diuretics in the past which were discontinued because of worsening of his serum creatinine. It came down from approximately 3.7-3.2 with discontinuation of the diuretic as well as Voltaren which she was in the habit of taking. He has had a tendency towards hyperkalemia in the past but this also improved with modification in his diet and discontinuation of the NSAID. He currently denies any shortness of breath, chest pain, nausea or vomiting. He has chronic lower extremity edema. He feels stronger today than when he came in. Past medical history is positive for hypertension, hyperlipidemia, coronary artery disease status post 5 vessel CABG in 1987, arthritis, Paget's disease, total knee replacements 2, Parkinson's disease and hypothyroidism. Medications: See below Family history: Negative for kidney disease in his parents or siblings. There is a family history for hypertension. Social history: Former smoker, no history of alcohol or drug abuse., He is , his over 20 years ago, lives in senior housing. 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 Allergies/Medications Allergies: Coded Allergies: acetaminophen (From PERCOCET) (UNKNOWN 12/10/16) oxycodone (From PERCOCET) (UNKNOWN 12/10/16) Home Med List: Amlodipine Besylate 5 MG TABLET 0.5 TAB PO DAILY HEART (Reported) Diclofenac Sodium 50 MG TABLET.DR 500 MG PO BID PAIN (Reported) Hydralazine HCl 25 MG TABLET 1 TAB PO BID HEART (Reported) Levothyroxine Sodium (Levo-T) 25 MCG TABLET 1 TAB PO DAILY AC THYROID ( Reported) Metoprolol Succ XL (Toprol XL) 25 MG TAB 1 TAB PO DAILY Heart (Reported) Simvastatin (Simvastatin*) 40 MG TABLET 1 TAB PO QPM CHOLESTEROL (Reported) Sodium Bicarbonate 650 MG TABLET 2 TAB PO BID SUPPLEMENT (Reported) Review of Systems Review of Systems: Constitutional: Denies: see HPI, chills, fever, unexplained weight loss. EENTM: Denies: blurred vision, hearing changes. Cardiovascular: Reports: peripheral edema. Denies: chest pain, orthopena, palpitations, syncope. Respiratory: Reports: cough. Denies: hemoptysis, orthopnea, short of breath, sputum production, stridor, wheezing. GI: Denies: abdominal pain, melena, nausea, bloody stool, changes in stool. Genitourinary: Denies: frequency. Musculoskeletal: Denies: back pain. Skin: Denies: erythema. Neurological/Psychological: Denies: anxiety. Hematologic/Endocrine: Denies: bruising. Past History Travel History Traveled to [place] past 21 day No Medical History Blood Transfusion Hx: No Neurological: NONE EENT: [place] Cardiovascular: CAD, hypertension, hyperlipidemia Respiratory: NONE Gastrointestinal: diverticulosis ATROPHIC GASTRITIS Hepatic: NONE Renal: chronic kidney disease Musculoskeletal: gout Psychiatric: NONE Endocrine: NONE Blood Disorders: NONE Cancer(s): NONE Other Medical Hx: paget disease Surgical History Surgical History: CABG, RIGHT INGUINAL HERNIA REPAIR Family History Relations & Conditions If Any: Relation not specified for: *No pertinent family history Psychosocial History Where Do You Live? Home Services at Home: Nursing Smoking Status: Former Smoker Functional Ability ADLs Independent: dressing, eating, toileting, bathing. Ambulation: walker IADLs Independent: telephone. Unknown: shopping, housework, finances, food prep, transportation. Exam & Diagnostic Data Vital Signs and I&O Vital Signs Date Time Temp Pulse Resp B/P B/P Pulse O2 O2 Flow FiO2 Mean Ox Delivery Rate 12/12 1046 Room Air 12/12 0846 98.7 78 18 96 Room Air 12/12 0822 64 140/72 12/12 0822 64 140/72 12/12 0800 Room Air 12/12 0700 138/72 / 0022 98.5 64 20 160/78 97 / 0000 Room Air 12/11 1638 180/90 12/11 1610 99.1 63 16 180/90 96 Room Air Intake & Output 12/12 1600 12/12 0400 12/11 0400 12/10 0400 Intake Total 690 480 500 200 Output Total 7236 850 7438 900 Balance -310 -220 -500 -700 Intake, IV 10 Intake, Oral 680 480 500 200 Output, Urine 3134 706 5867 900 Patient 124 lb 158 lb 150 lb Weight Weight Reported by Patient Measurement Method Physical Exam: General: Well-developed, elderly white male in NAD Skin: No rash or jaundice HEENT: Conjunctivae pink, sclerae anicteric, mucous membranes moist Neck: Without masses or thyromegaly, no supraclavicular or cervical adenopathy Chest: Clear to P&A Heart: Regular rate and rhythm without S3 or rub Abdomen: Soft and nontender without palpable masses or organomegaly Extremities: 1-2+ edema, chronic overlying skin changes, no livedo Neuro: No focal findings, no asterixis or myoclonus Assessment/Plan Assessment/Recommendations Assessment: 86-year-old man with chronic 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 I suspect that this maybe related in part to diuretic therapy which should be held for now as I'm not convinced that he is in significant congestive heart failure. I would not diurese him for his lower extremity edema. Of course, an elderly gentleman we do need to consider superimposed obstruction. Recommendations: 1. Renal and bladder ultrasound 2. Hold diuretics 3. Continue sodium bicarbonate 4. Check serum phosphorus and PTH levels 5. Monitor intake and output, chemistries daily for now 6. Physical therapy
--- NOTE | 2016-12-12 16:30 | Patient Discharge Instructions ---
Discharge Instructions General Discharge Information You were seen/treated for: wORSENING CKD Watch for these problems: Please watch for worsening LE swelling, SOB, difficulty lying flat in bed, chest pain Special Instructions: Please follow up with PCP Dr. Talley within a week of discharge. Please follow up with Nephrology Dr. Em within a week of discharge. Please follow up with cardiology Dr. Seymour within a week of discharge. Please avoid NSAIDs such as Motrin or Ibuprofen, which will affect the kidneys. Diet Recommended Diet: Heart Healthy Activity Additional ACTIVITY Info: As tolearted continued skilled physical therapy Acute Coronary Syndrome Inclusion Criteria At DC or during hospital stay patient has or had the following: ACS DIAGNOSIS No Discharge Core Measures Meds if any: Prescribed or Continued at Discharge Meds if any: NOT Prescribed or Continued at Discharge Congestive Heart Failure Inclusion Criteria At DC or during hospital stay patient has or had the following: CHF DIAGNOSIS No Discharge Core Measures Meds if any: Prescribed or Continued at Discharge Meds if any: NOT Prescribed or Continued at Discharge Cerebrovascular accident Inclusion Criteria At DC or during hospital stay patient has or had the following: CVA/TIA Diagnosis No Discharge Core Measures Meds if any: Prescribed or Continued at Discharge Meds if any: NOT Prescribed or Continued at Discharge Venous thromboembolism Inclusion Criteria VTE Diagnosis No VTE Type NONE VTE Confirmed by (Test) NONE Discharge Core Measures - Per Current guidelines, there needs to be overlap - treatment for the first 5 days of Warfarin therapy. - If discharged on Warfarin prior to 5 days of - overlap therapy, the patient will need to be - assessed for post discharge needs including - *Post discharge parental anticoagulation - *Warfarin and/or parental anticoagulation education - *Follow up date to check INR post discharge At least 5 days overlap therapy as Inpatient No Meds if any: Prescribed or Continued at Discharge Note: Overlap Therapy is Warfarin and Anticoagulant Meds if any: NOT Prescribed or Continued at Discharge
[2016-12-12 16:52] VITALS: BP 138/81
--- NOTE | 2016-12-12 18:33 | Discharge Summary ---
Visit Information Visit Dates Admission Date: 12/10/16 Discharge Date: 12/13/16 Hospital Course Course Attending Physician: DIVYA RICKS,HÉCTOR Primary Care Physician: JORGE VASQUEZ MD Hospital Course: Mr Castro, is an 86-year-old man who has a past medical history of CAD s/p CABG ( dx'ed 1987), hypertension, hyperlipidemia, CKD, Paget disease, gout ? Parkinsons who is being evaluated for a chief concern of inability to get out of his recliner chair after prolonged period of sitting 1 day. At the time of admission, vitals temperature 97.5, blood pressure 173/94 ( improved to 159/85), pulse 86, respiratory rate 16, 100 % on room air. Lab findings included no leukocytosis, WBC 6.9, hemoglobin 9.7 (baseline 9.2 on 10/28 ), platelets low 126 (last platelet check 130-reason unclear, no history of alcohol or illicit drug use), normal electrolytes-sodium 137, potassium 4.7, elevated serum creatinine 3.6 (3.2 in 08/30), phosphorus 5.5, calcium 7.9 ( corrected calcium 8.9), albumin 2.7, proBNP 5100. Elevated PTH. Radiological findings-chest x-ray revealed mild increase in interstitial lung markings perihilar vasculature. Renal ultrasound 08/2016 revealed cortical atrophy bilaterally. Differential diagnosis: #1 CHF exacerbation (fluid overload) #2 worsening renal function- CKD stage IV Below is the problem list and plan: #1 weakness, leg swelling, cough-likely due to fluid overload. CHF was in the differentials, but doesnt have any clear physical examination findings. Pt received iv furosemide in the ER, and was actively diuresed while in the stay on the telemetry floor. Echocardiogram was done that revealed LVEF 55-60%. Elevated left ventricle end-diastolic pressure (left ventricular end-diastolic pressure). Anti-hypertensive medications were adjusted. Amlodipine was discontinued. #2 anemia lower H&H likely due to anemia of chronic disease. Stable. #3 chronic kidney disease- elevated serum creatinine. History indicated chronic NSAID use, which was discontinued while the pt was in the telemetry. Since sr creatinine was elevated, renal ultrasound was repeated to assess any acute pathology. Sr Cr trended down towards his baseline 3.7-->3.5. Sr bicarbonate remained low, for which he was continued on sodium bicarbonate. He was recommeded to follow up with the nephroloigst, japanese professor and the PCP within one week. Advised the pt to discuss about the use of furosemide in the setting of kidney injury. He was asked to avoid ACEI/ARB, NSAIDs. He was recommeded by the physical therapy evaluators to be discharged to a [facility]. Allergies: Coded Allergies: acetaminophen (From PERCOCET) (UNKNOWN 12/10/16) oxycodone (From PERCOCET) (UNKNOWN 12/10/16) Pertinent Lab Results: RAD - XRY-PORTABLE CHEST XRAY 12/10/16-1412 Mild increased interstitial markings. Prominence of the perihilar vasculature. No significant pleural effusion. No pneumothorax. Enlargement of cardiomediastinal silhouette. Sternal wires are noted. IMPRESSION: Mild increased interstitial markings, prominence of the perihilar vasculature, and cardiomegaly, which could represent CHF. --------- ECHOCARDIOGRAM 12/12/16- Normal left ventricular systolic function with mild concentric hypertrophy. Type 1 diastolic dysfuction with 'L' wave suggesting elevated left ventricular end diastolic pressure. Mid o moderate Aortic stenosis. Mild to moderate Pulmonary hypertension. Normal left ventricular systolic function with mild concentric hypertrophy. Type 1 diastolic dysfuction with 'L' wave suggesting elevated left ventricular end diastolic pressure. Mid o moderate Aortic stenosis. Mild to moderate Pulmonary hypertension. Disposition Summary Disposition Principal Diagnosis: SRIKANTH on CKD Additional Diagnosis: CHF Discharge Disposition: SNF Discharge Instructions General Discharge Information Code Status: Full Code Patient's Diet: heart healthy diet Patient's Activity: as tolerated. Follow-Up Instructions/Appts: Please follow up with PCP Dr. Vasquez within a week of discharge. Please follow up with Nephrology Dr. Em within a week of discharge. Please follow up with cardiology Dr. Seymour within a week of discharge. Medications at Discharge Discharge Medications: Stop taking the following medications: Diclofenac Sodium (Diclofenac Sodium) 50 MG TABLET.DR ORAL TWICE DAILY Amlodipine Besylate (Amlodipine Besylate) 5 MG TABLET ORAL DAILY Hydralazine HCl (Hydralazine HCl) 25 MG TABLET ORAL TWICE DAILY Continue taking these medications: Sodium Bicarbonate (Sodium Bicarbonate) 650 MG TABLET 2 Tablet ORAL TWICE DAILY Comments: Last Taken: 12/13/16 Time: 1000 Simvastatin (Simvastatin*) 40 MG TABLET 1 Tablet ORAL Every night Comments: Last Taken: 12/12/16 Time: 1615 Levothyroxine Sodium (Levo-T) 25 MCG TABLET 1 Tablet ORAL DAILY BEFORE BREAKFAST Comments: Last Taken: 12/13/16 Time: 0640 Metoprolol Succ XL (Toprol XL) 25 MG TAB 1 Tablet ORAL DAILY Comments: Last Taken: 12/13/16 Time: 1000 Carbidopa/Levodopa (Carbidopa-Levodopa 25-100 Tab) 25 MG-100 MG TABLET 1 Tablet ORAL THREE TIMES DAILY Comments: Last Taken: NOT GIVEN IN HOSPITAL Time: Aspirin (Aspirin*) 81 MG TAB.CHEW 1 Tablet ORAL DAILY Days = 30 Comments: Last Taken: 12/13/16 Time: 1000 Start taking the following new medications: Hydralazine HCl (Hydralazine HCl) 50 MG TABLET 1 Tablet ORAL TWICE DAILY Qty = 60 No Refills Comments: Last Taken: 12/13/16 Time: 1000 Magnesium Oxide (Magnesium Oxide) 400 MG TABLET 1 Tablet ORAL DAILY Qty = 5 No Refills Comments: Last Taken: 12/13/16 Time: 1445 Copies To: LOUIE LIZARRAGA Attending Review Statement Documenting Attending: DIVYA RICKS,HÉCTOR
[2016-12-13 01:42] VITALS: BP 138/74
--- NOTE | 2016-12-13 07:17 | PN- Housestaff ---
DELONTE MCCABE 12/13/16 0716: Subjective Follow-up For: - CHF exacerbation Complaints: no complaints Tele-Events Since Last Visit: off tele. No tele events noted. Subjective: Pt comfortable. No complaints. vitals stable overnight. Review of Systems Constitutional: Reports: see HPI. Objective Last 24 Hrs of Vital Signs/I&O Vital Signs Date Time Temp Pulse Resp B/P B/P Pulse O2 O2 Flow FiO2 Mean Ox Delivery Rate 12/13 0142 98.1 62 18 138/74 98 Room Air 12/13 0000 95 Room Air 12/12 2058 55 142/70 12/12 1652 97.1 61 18 138/81 97 Room Air 12/12 1600 96 Room Air 12/12 1046 Room Air 12/12 0846 98.7 78 18 96 Room Air 12/12 0822 64 140/72 12/12 0822 64 140/72 12/12 0800 Room Air Intake & Output 12/13 0800 / 0000 12/12 1600 Intake Total 100 520 490 Output Total 600 400 600 Balance -500 120 -110 Intake, IV 120 10 Intake, Oral 100 400 480 Output, Urine 600 400 600 Physical Exam General Appearance: No Acute Distress Other Physical Findings: General Exam: AAOx3, No acute distress, Skin: No rashes, no breakdown HEENT: PERRLA, EOMI Neck: Supple, No JVD No cervical lymphadenopathy CVS: Reg Rate, Normal S1,S2, No MGR Resp: Normal air entry, b/l ronchi/rales Abdomen: Soft, No tenderness, Normal Bowel Sounds Neuro: Normal Speech, Strength 5/5 b/l x 4 extremities, Sensation intact, CN III -XII NL, Reflexes 2+ Extremities: No cyanosis, pedal edema 1+ Current Medications: Current Medications Sig/Miriam Start time Last Medication Dose Route Stop Time Status Admin Acetaminophen 325 MG Q6P PRN 12/10 1645 DCD PO Aspirin Buffered 81 MG DAILY 12/13 1000 DCD 12/13 PO 1006 Atorvastatin Calcium 20 MG 1700 12/10 1700 DCD 12/12 PO 1617 Benzonatate 100 MG TID 12/11 1000 DCD 12/13 PO 1006 Heparin Sodium 5,000 UNIT Q8 12/100 DCD 12/13 (Porcine) SC 1349 Hydralazine HCl 50 MG BID 12/11 2200 DCD 05 PO 1006 Hydromorphone HCl 0.5 MG Q6P PRN 12/10 1645 DCD IV Levothyroxine Sodium 0.025 MG DAILY AC 12/11 0700 DCD 12/13 PO 0638 Magnesium Oxide 400 MG ONE ONE 12/13 1445 DC 05 PO 12/13 1446 1449 Metoprolol Succinate 25 MG DAILY 12/13 1000 DCD 12/13 PO 1007 Morphine Sulfate 2 MG Q6 PRN 12/10 1645 DCD 12/11 IV 0034 Patient Medication 1 ED .STK-MED ONE 12/13 1339 DC Teaching ED 12/13 1340 Sodium Bicarbonate 650 MG BID 12/10 2200 DCD 12/13 PO 1006 Last 24 Hrs of Lab/Deshawn Results Last 24 Hrs of Labs/Mics: Laboratory Tests 12/13/16 0611: Anion Gap 12, Estimated GFR 17 L, BUN/Creatinine Ratio 17.4, Phosphorus 5.4 H, Magnesium 1.7, PTH Intact 774.1 H Assessment/Plan Assessment: Mr Castro, is an 86-year-old man who has a past medical history of CAD s/p CABG ( dx'ed 1987), hypertension, hyperlipidemia, CKD, Paget disease, gout ? Parkinsons who is being evaluated for a chief concern of inability to get out of his recliner chair after prolonged period of sitting 1 day. Radiological findings-chest x-ray revealed mild increase in interstitial lung markings perihilar vasculature. Renal ultrasound 08/2016 revealed cortical atrophy bilaterally. Differential diagnosis: #1 CHF exacerbation (fluid overload) #2 worsening renal function- CKD stage IV Below is the problem list and plan: #1 weakness, leg swelling, cough-likely due to fluid overload. CHF in the differentials, but doesnt have any physical examination findings. Pt received iv furosemide in the ER. Worsening kidney function likely contributing to pedal edema. Echocardiogram Normal left ventricular ejection fraction estimated at 55- 60%. #2 anemia lower H&H likely due to anemia of chronic disease. Stable. #3 chronic kidney disease- elevated serum creatinine. Stage IV. Continue to monitor closely. History indicated chronic NSAID use. Repeat ultrasound as per Renal consultatnt. Last usg was done in 08/30. Hold lasix for now. Continue sodium bicarbonate. #4 hypertension-continue to monitor closely. Pt was bradycardic this am. The dose of metoprolol 50 xl was decreased to 25mg daily. Monitor on telemetry. Amlodipine was discontinued. #5 DVT prophylaxis-subcutaneous heparin. Problem List: 1. Accelerated hypertension 2. Chronic anemia Pain Ratin Pain Location: none Pain Goal: Pain 4 or less Pain Plan: tylenol prn Tomorrow's Labs & Rationales: no labs necessary HÉCTOR STOKES MD 12/13/16 1528: Attending MD Review Statement Attending Statement Attending MD Statement: examined this patient, discuss w/resident/PA/[employer], agreed w/resident/PA/[employer], reviewed EMR data (avail), discussed with nursing, discussed with case mgmt, amended to note Attending Assessment/Plan: Patient seen and examined, feels well. Denies any complaints. Mag level is only 1.7. Needs More Mag repletion. Replete oral. Otherwise ok for DC. Pt had Normal EF on recent ECHO. Has a bed at [facility].
--- NOTE | 2016-12-13 07:27 | ECHOCARDIOGRAM REPORT ---
SHARONDA AQUINO Age: 86 : 1930 Gender: M Exam Date: 12/12/2016 19:40 Exam Location: 1 [address] Ht (in): 64 Wt (lb): 124 BSA: 1.59 BP: 140 / 72 Ordering Physician: AIDA AWAN MD Referring Physician: Baljeet Seymour M.D. Technologist: Suha Qiu RD Room Number: 189-01 Indications: HEART FAILURE Rhythm: Technical Quality: FINDINGS Left Ventricle Normal size left ventricle. Left ventricular wall thickness mildly increased. Normal left ventricular ejection fraction estimated at 55-60%. Elevated left ventricle end-diastolic pressure (left ventricular end-diastolic pressure). Right Ventricle Normal right ventricular size and function. Right Atrium Mild right atrial dilatation. Left Atrium Mild left atrial dilatation. Mitral Valve Mild mitral annular calcification. Mild mitral regurgitation. Aortic Valve Diffuse thickening of the aortic valve cusps with reduced excursion. [id number] aortic stenosis. Tricuspid Valve Tricuspid valve is normal in structure and function. Mild-to- moderate tricuspid regurgitation. Right ventricular systolic pressure estimated to be elevated at 40 mmHg. Pulmonic Valve Pulmonic valve not well visualized, grossly normal. Pericardium No pericardial effusion. Great Vessels Normal size aortic root. CONCLUSIONS Normal left ventricular systolic function with mild concentric hypertrophy. Type 1 diastolic dysfuction with 'L' wave suggesting elevated left ventricular end diastolic pressure. Mid o moderate Aortic stenosis. Mild to moderate Pulmonary hypertension. Talha Rausch M.D. (Electronically Signed) Final Date: 13 Dec 2016 07:27 MEASUREMENTS (Male / Female) Normal Values 2D ECHO LV Diastolic Diameter PLAX 4.4 cm 4.2 - 5.9 / 3.9 - 5.3 cm LV Systolic Diameter PLAX 2.6 cm 2.1 - 4.0 cm LV Fractional Shortening PLAX 40.9 % 25 - 46 % LV Ejection Fraction 2D Teich 71.9 % IVS Diastolic Thickness 1.5 cm LVPW Diastolic Thickness 1.4 cm LV Relative Wall Thickness 0.7 RV Internal Dim ED PLAX 2.8 cm 1.9 - 3.8 cm LVOT Diameter 1.9 cm Aortic Root Diameter 3.1 cm LA Systolic Diameter LX 3.9 cm 3.0 - 4.0 / 2.7 - 3.8 cm LA Volume 43.0 cm 18 - 58 / 22 - 52 cm Ascending Aorta Diameter 3.3 cm DOPPLER AV Peak Velocity 218.0 cm/s AV Peak Gradient 19.0 mmHg AV Mean Velocity 149.0 cm/s AV Mean Gradient 10.0 mmHg AV Velocity Time Integral 57.7 cm LVOT Peak Velocity 113.0 cm/s LVOT Peak Gradient 5.1 mmHg LVOT Mean Velocity 71.6 cm/s LVOT Mean Gradient 2.0 mmHg LVOT Velocity Time Integral 27.3 cm LVOT Stroke Volume 77.4 cm AV Area Cont Eq vti 1.3 cm AV Area Cont Eq pk 1.5 cm MV Peak Velocity 127.0 cm/s MV Peak Gradient 6.5 mmHg MV Mean Velocity 58.5 cm/s MV Mean Gradient 2.0 mmHg Mitral E Point Velocity 71.1 cm/s Mitral A Point Velocity 115.0 cm/s Mitral E to A Ratio 0.6 MV PHT Velocity 85.3 cm/s MV Deceleration [place] 194.0 cm/s MV Pressure Half Time 131.9 ms MV Area PHT 1.7 cm MV Deceleration Time 331.0 ms TR Peak Velocity 300.0 cm/s TR Peak Gradient 36.0 mmHg Right Atrial Pressure 5.0 mmHg Pulmonary Artery Systolic Pressu 41.0 mmHg Right Ventricular Systolic Press 41.0 mmHg PV Peak Velocity 184.0 cm/s PV Peak Gradient 13.5 mmHg PV Mean Velocity 113.0 cm/s PV Mean Gradient 6.0 mmHg PV Velocity Time Integral 44.9 cm LV E' Lateral Velocity 4.6 cm/s Mitral E to LV E' Lateral Ratio 15.5 LV E' Septal Velocity 4.4 cm/s Mitral E to LV E' Septal Ratio 16.2
[2016-12-13 08:00] VITALS: BP 160/70
--- NOTE | 2016-12-13 09:30 | PN- Cardiology ---
Subjective Subjective: Patient states he feels better overall. He denies chest pain or shortness of breath. He only complains of feeling fatigued Review of Systems: Eyes no blurred or double vision Ears no deafness or ringing Nose and throat no recurrent sinusitis Lungs per history of present illness Heart per history of present illness Abdomen no nausea vomiting Musculoskeletal occasional muscle and joint pains Psych no anxiety or depression Neuro without recurrent headache or seizures Endocrine no heat or cold intolerance Objective Vital Signs and I&Os Vital Signs Date Time Temp Pulse Resp B/P B/P Pulse O2 O2 Flow FiO2 Mean Ox Delivery Rate 12/13 08 96 Room Air 12/13 08 98.2 64 20 160/70 97 12/13 0142 98.1 62 18 138/74 98 Room Air 12/13 0000 95 Room Air 12/12 2058 55 142/70 12/12 1652 97.1 61 18 138/81 97 Room Air 12/12 1600 96 Room Air 12/12 1046 Room Air Intake & Output 12/13 1600 12/13 0000 12/12 1600 12/12 0800 12/12 0000 Intake Total 100 520 490 200 480 Output Total 600 400 600 400 700 Balance -500 120 -110 -200 -220 Intake, IV 120 10 Intake, Oral 100 400 480 200 480 Output, Urine 600 400 600 400 700 Patient 124 lb Weight Physical Exam: Patient is a well-developed well-nourished male appearing in no acute distress HEENT is unremarkable Neck is supple there is no JVD Lungs are clear Heart regular rhythm S1 and S2 are normal no murmurs gallops or rubs Abdomen bowel sounds positive Extremities 1+ edema right greater than left Current Medications: Current Medications Sig/Miriam Start time Last Medication Dose Route Stop Time Status Admin Acetaminophen 325 MG Q6P PRN 12/10 1645 AC PO Aspirin Buffered 81 MG DAILY 12/13 1000 AC PO Atorvastatin Calcium 20 MG 1700 12/10 1700 AC 12/12 PO 1617 Benzonatate 100 MG TID 12/11 1000 AC 12/12 PO 2057 Furosemide 40 MG DAILY 12/11 1606 DC 12/12 PO 0822 Heparin Sodium 5,000 UNIT Q8 12/10 2199 AC 12/13 (Porcine) SC 0637 Hydralazine HCl 50 MG BID 12/11 2199 AC 12/12 PO 2057 Hydromorphone HCl 0.5 MG Q6P PRN 12/10 1645 AC IV Levothyroxine Sodium 0.025 MG DAILY AC 12/11 0700 AC 12/13 PO 0638 Magnesium Sulfate 1 GM ONCE ONE 12/12 1600 DC 12/12 Dextrose/Water 100 ML IV 12/12 1959 1617 Metoprolol Succinate 25 MG DAILY 12/13 1000 AC PO Metoprolol Succinate 50 MG DAILY 12/12 1000 DC 12/12 PO 0822 Morphine Sulfate 2 MG Q6 PRN 12/10 1645 AC 12/11 IV 0034 Sodium Bicarbonate 650 MG BID 12/10 2200 AC 12/12 PO 2058 Results Last 48 Hrs of Labs/Mics: Laboratory Tests 12/13/16 0611: Anion Gap 12, Estimated GFR 17 L, BUN/Creatinine Ratio 17.4, Phosphorus 5.4 H, PTH Intact 774.1 H 12/12/16 0705: Anion Gap 11, Estimated GFR 16 L, BUN/Creatinine Ratio 16.5, Phosphorus 5.6 H, Magnesium 1.4 L, PTH Intact 774.3 H, CBC w Diff NO MAN DIFF REQ, RBC 3.08 L, MCV 94.2 H, MCH 31.4 H, RDW 13.2, MPV 9.4, Gran % 79.8 H, Lymphocytes % 15.6 L, Monocytes % 4.3, Eosinophils % 0.1, Basophils % 0.2, Absolute Granulocytes 5.8, Absolute Lymphocytes 1.1 L, Absolute Monocytes 0.3, Absolute Eosinophils 0 , Absolute Basophils 0, PUBS MCHC 33.3 Recent Imaging Studies: Echocardiogram CONCLUSIONS Normal left ventricular systolic function with mild concentric hypertrophy. Type 1 diastolic dysfuction with 'L' wave suggesting elevated left ventricular end diastolic pressure. Mid o moderate Aortic stenosis. Mild to moderate Pulmonary hypertension. Talha Rausch M.D. Assessment/Plan Assessment/Plan 1. Weakness 2. CAD/History of remote CABG normal LV function on recent echo 3. CKD 4. Hx IVCD 5. History of mild aortic stenosis 6. History of chronic lower extremity edema 7. History of hypertension, uncontrolled 8. Anemia Recommendations 1. Physical therapy for ambulation 2. Continue metoprolol and hydralazine 3. If blood pressure remains elevated would increase hydralazine. Given renal insufficiency would avoid JALEESA/ARB Continue telemetry? No
[2016-12-13] MEDS ORDERED: CARBIDOPA-LEVO1 EAC7 PO (11:56)
[2016-12-13] MEDS ORDERED: ASPIRIN81 M4 PO (11:57)
[2016-12-13] MEDS ORDERED: HYDRALAZINE HCL50 M1 PO (12:54)
--- NOTE | 2016-12-13 13:52 | ULTRASOUND REPORT ---
EXAMINATION: US RETROPERITONEAL COMPLETE (RENAL) CLINICAL INFORMATION: Worsening kidney function. Chronic kidney disease. COMPARISON: Renal ultrasound dated 09/05/2016. MRI scan of the lumbar spine dated 04/01/2009. TECHNIQUE: Real-time imaging of the kidneys and bladder. FINDINGS: RIGHT KIDNEY: 10.3 x 5.2 x 5.2 cm (SAG x AP x TRV). The kidney is normal in size. Renal cortical echogenicity is diffusely mildly increased with cortical thinning noted. No calculi. No hydronephrosis. There are multiple variably sized benign-appearing simple cysts in the right kidney, largest of which is an exophytic lower pole renal cyst, measuring 2.4 x 2.4 x 1.8 cm, previously measuring 2.4 x 2.4 x 1.8 cm (09/05/2016). LEFT KIDNEY: 10.8 x 5.3 x 4.7 cm (SAG x AP x TRV). The kidney is normal in size. Renal cortical echogenicity is diffusely mildly increased with cortical thinning seen. Multiple variably sized benign-appearing simple cysts as seen, largest of which is in the upper pole, partially exophytic, measuring 1.4 x 1.2 x 1.6 cm versus 1.5 x 1.4 x 1.6 cm previously (09/05/2016). A nonobstructing 0.5 x 0.3 x 0.5 cm calcification is seen in the mid left kidney and another 0.5 x 0.3 x 0.3 cm calcification in the lower pole, unchanged. No hydronephrosis. BLADDER: Well-distended and normal. Bilateral ureteral jets are demonstrated. IMPRESSION: 1. Bilateral diffuse cortical thinning and increased echogenicity is seen, consistent with medical renal disease. 2. Multiple bilateral benign-appearing cysts are noted, similar to prior exam. 3. Nonobstructing 0.5 cm calculi are seen in the mid and lower pole of the left kidney, unchanged.
[2016-12-13] MEDS ORDERED: MAGNESIUM OXID400 M1 PO (14:12)
[2016-12-13 14:29] VITALS: BP 160/70
--- NOTE | 2016-12-13 15:33 | PN- Nephrology ---
Assessment/Plan Assessment: 1. CKD 2. SRIKANTH secondary to diuretic therapy - improving and approaching baseline 3. Multiple comorbidities Suggestion: 1. Continue to hold diuretics 2. If diuretics to be restarted as an outpatient would favor an every other day or 3 times per week regimen 3. Increase sodium bicarbonate to 1300 mg by mouth twice a day 4. Mobilize Subjective Subjective: Patient feels stronger and better in general today. Renal ultrasound shows 10.3 and 10.8 cm kidneys with cortical thinning consistent with chronic kidney disease, without hydronephrosis. Creatinine down to 3.5. Objective Vital Signs and I&Os Vital Signs Date Time Temp Pulse Resp B/P B/P Pulse O2 O2 Flow FiO2 Mean Ox Delivery Rate 12/13 1429 98.2 64 20 160/70 12/13 1007 64 160/70 12/13 1006 64 160/70 12/13 0800 96 Room Air 12/13 0800 98.2 64 20 160/70 97 12/13 0142 98.1 62 18 138/74 98 Room Air 12/13 0000 95 Room Air 12/12 2058 55 142/70 12/12 1652 97.1 61 18 138/81 97 Room Air 12/12 1600 96 Room Air Intake & Output 12/13 1600 12/13 0400 12/12 1600 12/12 0400 12/11 1600 12/11 0400 Intake Total 660 520 690 480 500 200 Output Total 518 276 5806 700 1000 900 Balance 60 120 -310 -220 -500 -700 Intake, IV 120 10 Intake, Oral 660 400 680 480 500 200 Output, Urine 137 220 6167 700 1000 900 Patient 124 lb 158 lb Weight Physical Exam: General: Well-developed, elderly white male in NAD Skin: No rash or jaundice HEENT: Conjunctivae pink, sclerae anicteric, mucous membranes moist Neck: Without masses or thyromegaly, no supraclavicular or cervical adenopathy Chest: Clear to P&A Heart: Regular rate and rhythm without S3 or rub Abdomen: Soft and nontender without palpable masses or organomegaly Extremities: 1+ edema o right, chronic overlying skin changes, no livedo Neuro: No focal findings, no asterixis or myoclonus Current Medications: Current Medications Sig/Miriam Start time Last Medication Dose Route Stop Time Status Admin Acetaminophen 325 MG Q6P PRN 12/10 1645 AC PO Aspirin Buffered 81 MG DAILY 12/13 1000 AC 12/13 PO 1006 Atorvastatin Calcium 20 MG 1700 12/10 1700 AC 12/12 PO 1617 Benzonatate 100 MG TID 12/11 1000 AC 12/13 PO 1006 Heparin Sodium 5,000 UNIT Q8 12/10 2199 AC 12/13 (Porcine) SC 1349 Hydralazine HCl 50 MG BID 12/11 2199 AC 12/13 PO 1006 Hydromorphone HCl 0.5 MG Q6P PRN 12/10 1645 AC IV Levothyroxine Sodium 0.025 MG DAILY AC 12/11 0700 AC 12/13 PO 0638 Magnesium Oxide 400 MG ONE ONE 12/13 1445 DC 12/13 PO 12/13 1446 1449 Magnesium Sulfate 1 GM ONCE ONE 12/12 1600 DC 12/12 Dextrose/Water 100 ML IV 12/12 195 1617 Metoprolol Succinate 25 MG DAILY 12/13 1000 AC 12/13 PO 1007 Morphine Sulfate 2 MG Q6 PRN 12/10 1645 AC 12/11 IV 0034 Patient Medication 1 ED .STK-MED ONE 12/[address] Teaching ED 12/13 1340 Sodium Bicarbonate 650 MG BID 12/10 2199 AC 12/13 PO 1006 Results Pertinent Lab Results: Laboratory Tests 12/13 12/12 12/11 0611 0705 0840 Chemistry Sodium (137 - 145 mmol/L) 138 136 L Potassium (3.5 - 5.1 mmol/L) 4.5 4.6 Chloride (98 - 107 mmol/L) 108 H 108 H Carbon Dioxide (22 - 30 mmol/L) 17 L 17 L Anion Gap (5 - 16) 12 11 BUN (9 - 20 mg/dL) 61 H 61 H Creatinine (0.7 - 1.2 mg/dL) 3.5 H 3.7 H Estimated GFR (>60 ml/min) 17 L 16 L BUN/Creatinine Ratio (7 - 25 %) 17.4 16.5 Phosphorus (2.5 - 4.5 mg/dL) 5.4 H 5.6 H Magnesium (1.6 - 2.3 mg/dL) 1.7 1.4 L Troponin I (<0.11 ng/ml) 0.07 PTH Intact (13.8 - 85 pg/ml) 774.1 H 774.3 H Hematology CBC w Diff NO MAN DIFF REQ WBC (4.8 - 10.8 /CUMM) 7.2 RBC (4.70 - 6.10 /CUMM) 3.08 L Hgb (14.0 - 18.0 G/DL) 9.7 L Hct (42 - 52 %) 29.0 L MCV (80.0 - 94.0 FL) 94.2 H MCH (27.0 - 31.0 PG) 31.4 H RDW (11.5 - 14.5 %) 13.2 Plt Count (130 - 400 /CUMM) 131 MPV (7.4 - 10.4 FL) 9.4 Gran % (42.2 - 75.2 %) 79.8 H Lymphocytes % (20.5 - 51.1 %) 15.6 L Monocytes % (1.7 - 9.3 %) 4.3 Eosinophils % (0 - 5 %) 0.1 Basophils % (0.0 - 2.0 %) 0.2 Absolute Granulocytes (1.4 - 6.5 /CUMM) 5.8 Absolute Lymphocytes (1.2 - 3.4 /CUMM) 1.1 L Absolute Monocytes (0.10 - 0.60 /CUMM) 0.3 Absolute Eosinophils (0.0 - 0.7 /CUMM) 0 Absolute Basophils (0.0 - 0.2 /CUMM) 0 PUBS MCHC (33.0 - 37.0 G/DL) 33.3 12/11 12/11 12/10 0840 0226 2030 Chemistry Sodium (137 - 145 mmol/L) 140 Potassium (3.5 - 5.1 mmol/L) 4.6 Chloride (98 - 107 mmol/L) 109 H Carbon Dioxide (22 - 30 mmol/L) 16 L Anion Gap (5 - 16) 15 BUN (9 - 20 mg/dL) 59 H Creatinine (0.7 - 1.2 mg/dL) 3.7 H Estimated GFR (>60 ml/min) 16 L BUN/Creatinine Ratio (7 - 25 %) 15.9 Troponin I (<0.11 ng/ml) 0.06 0.05 Triglycerides (<150 mg/dL) 138 Cholesterol (< 200 MG/DL) 210 H LDL Cholesterol, Calc (65 - 129 mg/dL) 124 HDL Cholesterol (40 - 60 mg/dL) 59 Cholesterol/HDL Ratio (0.00 - 4.88 %) 4 Hematology CBC w Diff NO MAN DIFF REQ WBC (4.8 - 10.8 /CUMM) 8.8 RBC (4.70 - 6.10 /CUMM) 3.70 L Hgb (14.0 - 18.0 G/DL) 11.6 L Hct (42 - 52 %) 34.7 L MCV (80.0 - 94.0 FL) 93.8 MCH (27.0 - 31.0 PG) 31.3 H RDW (11.5 - 14.5 %) 14.0 Plt Count (130 - 400 /CUMM) 155 MPV (7.4 - 10.4 FL) 9.6 Gran % (42.2 - 75.2 %) 76.2 H Lymphocytes % (20.5 - 51.1 %) 17.9 L Monocytes % (1.7 - 9.3 %) 5.0 Eosinophils % (0 - 5 %) 0.6 Basophils % (0.0 - 2.0 %) 0.3 Absolute Granulocytes (1.4 - 6.5 /CUMM) 6.7 H Absolute Lymphocytes (1.2 - 3.4 /CUMM) 1.6 Absolute Monocytes (0.10 - 0.60 /CUMM) 0.4 Absolute Eosinophils (0.0 - 0.7 /CUMM) 0.1 Absolute Basophils (0.0 - 0.2 /CUMM) 0 PUBS MCHC (33.0 - 37.0 G/DL) 33.4 04/29 1800 Urines Urine Color (YEL,AMB,STR) YEL Urine Clarity (CLEAR) CLEAR Urine pH (5.0 - 8.0) 6.0 Ur Specific [place] (1.001 - 1.035) 1.020 Urine Protein (NEG,<30 MG/DL) >=300 H Urine Ketones (NEG) NEG Urine Nitrite (NEG) NEG Urine Bilirubin (NEG) NEG Urine Urobilinogen (0.1 - 1.0 EU/dl) 0.2 Ur Leukocyte Esterase (NEG) NEG Ur Microscopic SEDIMENT EXAMINED Urine RBC (0 - 5 /HPF) RARE Urine Hemoglobin (NEG) TRACE-INTACT H Urine Glucose (N MG/DL) NEG
== END 2016-12-13 16:30 | DRG 683 ==
LOC: ERH 13:59 → ERHI 15:20 → 1NO 15:20 → ENRESERV 15:53 → 1NO 16:57 → ENPENDDIS 12-13 14:37 → 1NO 12-13 16:30
PROVIDERS: Internal Medicine; Internal Medicine Infectious Disease; Physician Assistant; ADMIT Internal Medicine
DX: I12.9 Hypertensive chronic kidney disease with stage 1 through stage 4 chronic kidney disease, or unspecified chronic kidney disease (principal); N17.9 Acute kidney failure, unspecified; E87.2 Acidosis; G20 Parkinson's disease; N18.4 Chronic kidney disease, stage 4 (severe); I25.810 Atherosclerosis of coronary artery bypass graft(s) without angina pectoris; D63.1 Anemia in chronic kidney disease; Z95.1 Presence of aortocoronary bypass graft; M88.9 Osteitis deformans of unspecified bone; R53.1 Weakness; Z87.891 Personal history of nicotine dependence; E78.5 Hyperlipidemia, unspecified
CPT/HCPCS: 1NSP; 76775; 81001; 82436; 93005; 93010; 93306; 97110-GO; 97112-GO; 97162-GP; 97530-GO; J1644; J1940

== ENCOUNTER 2017-01-10 12:44 | Emergency (ER) | payer OTHER, MEDICARE ==
[~2017-01-10] VITALS: Ht 152.4 cm; Wt 72.6 kg
[~2017-01-10 12:44] MED LIST: AMLODIPINE BESYL5 M1 PO; ASPIRIN81 M4 PO; CARBIDOPA-LEVO1 EAC7 PO; DICLOFENAC SODI50 M3 PO; HYDRALAZINE HCL25 M1 PO; HYDRALAZINE HCL50 M1 PO; LEVO-T25 MCG PO; MAGNESIUM OXID400 M1 PO; METOPROLOL SUCC50 M2 PO; SIMVASTATIN40 M1 PO; SODIUM BICARBO650 M1 PO; TOPROL XL25 M1 PO
--- NOTE | 2017-01-10 12:55 | ED UPPER/LOWER EXTREMITY COMPL ---
History of Present Illness General Chief Complaint: Lower Extremity Problems Stated Complaint: BIBA LEG PAIN Source: patient, family, old records, EMS Exam Limitations: unable to give history Vital Signs & Intake/Output Vital Signs & Intake/Output Vital Signs Date Time Temp Pulse Resp B/P B/P Pulse O2 O2 Flow FiO2 Mean Ox Delivery Rate 01/10 1513 55 18 184/80 99 Room Air 01/10 1311 98 Room Air 01/10 1302 96.0 59 20 177/75 98 Room Air ED Intake and Output 01/11 0000 01/10 1200 Intake Total Output Total Balance Patient 160 lb Weight Weight Estimated Measurement Method Allergies Coded Allergies: acetaminophen (From PERCOCET) (UNKNOWN 12/10/16) oxycodone (From PERCOCET) (UNKNOWN 12/10/16) Reconcile Medications Aspirin (Aspirin*) 81 MG TAB.CHEW 1 TAB PO DAILY HEART HEALTH (Reported) Carbidopa/Levodopa (Carbidopa-Levodopa 25-100 Tab) 25 MG-100 MG TABLET 1 TAB PO TID DAILY (Reported) Hydralazine HCl 50 MG TABLET 1 TAB PO BID HIGH BLOOD PRESSURE Levothyroxine Sodium (Levo-T) 25 MCG TABLET 1 TAB PO DAILY AC THYROID ( Reported) Magnesium Oxide 400 MG TABLET 1 TAB PO DAILY low magnesium Metoprolol Succ XL (Toprol XL) 25 MG TAB 1 TAB PO DAILY Heart (Reported) Simvastatin (Simvastatin*) 40 MG TABLET 1 TAB PO QPM CHOLESTEROL (Reported) Sodium Bicarbonate 650 MG TABLET 2 TAB PO BID SUPPLEMENT (Reported) Triage Nurses Notes Reviewed? yes Onset: Abrupt Duration: since this morning Timing: single episode today Severity: mild Pain/Injury Location: Left: Arm, Leg. Modifying Factors: Worsens With: movement. HPI: This is an 86 year old rad who presents via EMS from short term rehab for left left and arm pain that started this morning. Denies any trauma or fall. No chest pain or shortness of breath. Denies any head or blurred vision or weakness. According to yemi son he gets up with PT at rehab and uses the walker but is usually in bed. Patient states that his arm feels better but that his left leg hurts wherever he touches it. He has a rash to bilateral tibial area but son states that the rash has been there for several months. Past History Travel History Traveled to [place] past 21 day No Medical History Any Pertinent Medical History? see below for history Neurological: NONE EENT: EKUK Cardiovascular: CAD, hypertension, hyperlipidemia Respiratory: NONE Gastrointestinal: diverticulosis ATROPHIC GASTRITIS Hepatic: NONE Renal: chronic kidney disease Musculoskeletal: gout Psychiatric: NONE Endocrine: NONE Blood Disorders: NONE Cancer(s): NONE Other Medical Hx: paget disease History of MRSA: No History of VRE: No History of CDIFF: No Influenza Vaccine: 06/23/16 Surgical History Surgical History: CABG, RIGHT INGUINAL HERNIA REPAIR Psychosocial History Who do you live with Patient/Self Services at Home Nursing What is your primary language Romansh Family History Family History, If Any: Relation not specified for: *No pertinent family history Hx Contributory? No Review of Systems Review of Systems Constitutional: Denies: chills, fever. EENTM: Reports: no symptoms. Respiratory: Denies: cough, short of breath. Cardiovascular: Reports: peripheral edema. Denies: chest pain, palpitations. Gastrointestinal/Abdominal: Denies: abdominal pain, nausea, vomiting. Genitourinary: Denies: discharge, dysuria. Musculoskeletal: Reports: joint swelling, muscle pain. Skin: Reports: no symptoms. Neurological/Psychological: Denies: anxiety, headache, numbness, tremors. Hematologic/Endocrine: Denies: bruising, bleeding, polyuria, other. Immunological: Denies: splenectomy. All Other Systems: Reviewed and Negative Physical Exam Physical Exam General Appearance: well developed/nourished, alert, awake, mild distress Head: atraumatic Eyes: Bilateral: PERRL, EOMI. Ears, Nose, Throat: normal pharynx, normal ENT inspection, hearing grossly normal Neck: normal inspection, supple Cardiovascular/Respiratory: regular rate/rhythm Peripheral Pulses: 2+ radial (R), 2+ radial (L), 2+ dorsalis pedis (R), 2+ dorsalis pedis (L) Gastrointestinal: SOFT NONTENDER Back: normal inspection Shoulder Left: normal range of motion, normal inspection Shoulder Right: normal range of motion, normal inspection Elbow Left: normal range of motion, normal inspection Elbow Right: normal range of motion, normal inspection Hand Left: normal inspection, normal range of motion Hand Right: normal inspection, normal range of motion Leg Left: normal range of motion, swelling, pain, RASH TO ANTERIOR TIBIA Leg Right: normal range of motion, normal inspection, RASH TO ANTERIOR TIBIA Hip Left: normal range of motion, normal inspection Hip Right: normal range of motion, normal inspection Knee Left: normal range of motion, swelling, pain, soft tissue tenderness Knee Right: normal range of motion, swelling Foot Left: normal inspection, pain, soft tissue tenderness, swelling Foot Right: normal range of motion, swelling Skin: intact, normal color, warm/dry Lymphatic: no anterior cervical charly Comments: BILATERAL LEGS SWELLING LEFT LEG TENDER TO PALPATION IN ALL AREAS UNIFORM SWELLING, NO ERYTHEMA PAIN WITH PASSIVE RANGE OF MOTION Progress Differential Diagnosis: cellulitis, DVT, fracture, sprain Plan of Care: Orders Procedure Date/time Status COMPREHENSIVE METABOLIC PANEL 01/10 1317 Complete CBC WITHOUT DIFFERENTIAL 01/10 1317 Complete EKG 01/10 1317 Active Laboratory Tests 01/10/17 1420: Anion Gap 10, Estimated GFR 17 L, BUN/Creatinine Ratio 23.4, Glucose 81, Calcium 7.0 L, Total Bilirubin 0.3, AST 13 L, ALT 16 L, Alkaline Phosphatase 138 H, Total Protein 5.7 L, Albumin 2.9 L, Globulin 2.8, Albumin/Globulin Ratio 1.0 L, CBC w Diff NO MAN DIFF REQ, RBC 2.70 L, MCV 92.7, MCH 31.0, RDW 13.7, MPV 8.2, Gran % 67.2, Lymphocytes % 19.4 L, Monocytes % 10.6 H, Eosinophils % 2.2, Basophils % 0.6, Absolute Granulocytes 3.9, Absolute Lymphocytes 1.1 L, Absolute Monocytes 0.6, Absolute Eosinophils 0.1, Absolute Basophils 0, PUBS MCHC 33.5 DISCUSSED RESULTS OF INVESTIGATION WITH SON AT BEDSIDE. PATIENT DENIED PAIN MEDICATIONS FOR HIS LEG PAIN WHILE IN THE ED UNTIL DISCHARGE. WORSENING ANEMIA DISCUSSED. PATIENT TRANSFERRED BACK TO [facility] WHERE HE CAN BE MONITORED FOR WORSENING PAIN OR SYMPTOMS. (DYLAN RICKS,ALEXANDRO) Diagnostic Imaging: Viewed by Me: Radiology Read, Ultrasound. Discussed w/RAD: Radiology Read, Ultrasound. Radiology Impression: PATIENT: SHARONDA AQUINO PRESENT AGE: 86 PATIENT ACCOUNT NO: [id number] : 30 LOCATION: [facility] ORDERING PHYSICIAN: ALEXANDRO RICHARDSON MD SERVICE DATE: 01/10/17 EXAM TYPE: US - US-UNILATERAL VENOUS DOPPLER EXAMINATION: UNILATERAL TRIPLEX SCANNING OF THE LEFT LOWER EXTREMITY CLINICAL INFORMATION: Left lower extremity swelling. COMPARISON: None. TECHNIQUE: Color-flow triplex imaging with spectral analysis and compression Doppler were performed on the left lower extremity. FINDINGS: Respiratory variation, normal compression and augmented flow are noted throughout the lower extremity. The visualized common femoral vein, superficial femoral vein, profunda femoral vein, popliteal vein and mid calf peroneal and posterior tibial venous segments show no evidence of deep venous thrombosis. There is a small Painting's cyst and subcutaneous edema. IMPRESSION: Normal triplex scan without evidence of deep venous thrombosis involving the left lower extremity. DICTATED BY: NEYMAR ROSADO MD DATE/TIME DICTATED:01/10/171423 MORTGAGE OR LOAN UNDERWRITER:GRAHAM DATE/TIME TRANSCRIBED:01/10/171423 CONFIDENTIAL, DO NOT COPY WITHOUT APPROPRIATE AUTHORIZATION. <Electronically signed in Other Vendor System> SIGNED BY: NEYMAR ROSADO MD 01/10/171427, PATIENT: SHARONDA AQUINO PRESENT AGE: 86 PATIENT ACCOUNT NO: [id number] : 30 LOCATION: ER ORDERING PHYSICIAN: ALEXANDRO RICHARDSON MD SERVICE DATE: 01/10/17 EXAM TYPE: RAD - XRY-AP PELVIS EXAMINATION: PELVIS 1 VIEW CLINICAL INFORMATION: Left hip pain. COMPARISON: None. TECHNIQUE: A supine view of the pelvis is provided. FINDINGS: There are no fractures. Both femoral heads are seated within well-formed acetabula. There is mild medial hip joint space narrowing bilaterally. No dysplastic changes are identified. The visualized bowel gas pattern is unremarkable. There are extensive vascular calcifications. IMPRESSION: No evidence for acute injury. Mild medial hip joint space narrowing bilaterally. DICTATED BY: SHERIN CLAYTON MD DATE/TIME DICTATED:01/10/171410 MORTGAGE OR LOAN UNDERWRITER:GRAHAM DATE/TIME TRANSCRIBED:01/10/171410 CONFIDENTIAL, DO NOT COPY WITHOUT APPROPRIATE AUTHORIZATION. <Electronically signed in Other Vendor System> SIGNED BY: SHERIN CLAYTON MD 01/10/171418, PATIENT: SHARONDA AQUINO PRESENT AGE: 86 PATIENT ACCOUNT NO: [id number] : 30 LOCATION: [facility] ORDERING PHYSICIAN: ALEXANDRO RICHARDSON MD SERVICE DATE: 01/10/17 EXAM TYPE: RAD - XRY-KNEE COMPLETE LEFT EXAMINATION: LEFT KNEE 3 VIEWS CLINICAL INFORMATION : Left knee pain. COMPARISON: None. TECHNIQUE: AP, lateral, oblique views of the left knee were obtained. FINDINGS: There are no fractures or dislocations. 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 There is narrowing to the patellofemoral compartment. There is no knee joint effusion. There is mild soft tissue swelling about the knee. There are diffuse vascular calcifications. IMPRESSION: Mild soft tissue swelling without any joint effusion. Mild degenerative change without evidence of acute osseous injury. DICTATED BY: SHERIN CLAYTON MD DATE/TIME DICTATED:01/10/171416 MORTGAGE OR LOAN UNDERWRITER:GRAHAM DATE/ TIME TRANSCRIBED:01/10/171416 CONFIDENTIAL, DO NOT COPY WITHOUT APPROPRIATE AUTHORIZATION. <Electronically signed in Other Vendor System> SIGNED BY: SHERIN CLAYTON MD 01/10/17 1423 Departure Departure Time of Disposition: 1510 Disposition: ACUTE REHAB FACILITY Condition: Stable Clinical Impression Primary Impression: Leg pain Secondary Impressions: Anemia, CRI (chronic renal insufficiency), Hyperkalemia Referrals: PEDRO RICKS,JORGE Najera (PCP/Family) Departure Forms: Customer Survey General Discharge Information
--- NOTE | 2017-01-10 14:19 | RADIOLOGY REPORT ---
EXAMINATION: PELVIS 1 VIEW CLINICAL INFORMATION: Left hip pain. COMPARISON: None. TECHNIQUE: A supine view of the pelvis is provided. FINDINGS: There are no fractures. Both femoral heads are seated within well-formed acetabula. There is mild medial hip joint space narrowing bilaterally. No dysplastic changes are identified. The visualized bowel gas pattern is unremarkable. There are extensive vascular calcifications. IMPRESSION: No evidence for acute injury. Mild medial hip joint space narrowing bilaterally.
--- NOTE | 2017-01-10 14:23 | RADIOLOGY REPORT ---
EXAMINATION: LEFT KNEE 3 VIEWS CLINICAL INFORMATION: Left knee pain. COMPARISON: None. TECHNIQUE: AP, lateral, oblique views of the left knee were obtained. FINDINGS: There are no fractures or dislocations. 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 There is narrowing to the patellofemoral compartment. There is no knee joint effusion. There is mild soft tissue swelling about the knee. There are diffuse vascular calcifications. IMPRESSION: Mild soft tissue swelling without any joint effusion. Mild degenerative change without evidence of acute osseous injury.
[2017-01-10 14:27] LABS: ABSOLUTE BASOPHIL COUNT 0 /CUMM (0.0-0.2); ABSOLUTE EOSINOPHIL COUNT 0.1 /CUMM (0.0-0.7); ABSOLUTE GRANULOCYTE CT 3.9 /CUMM (1.4-6.5); ABSOLUTE LYMPH COUNT 1.1 /CUMM (1.2-3.4); ABSOLUTE MONOCYTE COUNT 0.6 /CUMM (0.10-0.60); BASOPHIL % 0.6 % (0.0-2.0); EOSINOPHIL % 2.2 % (0-5); GRANULOCYTE % 67.2 % (42.2-75.2); MEAN CORPUSCULAR HGB CONC 33.5 G/DL (33.0-37.0); MEAN CORPUSCULAR VOLUME 92.7 FL (80.0-94.0); MEAN PLATELET VOLUME 8.2 FL (7.4-10.4); PLATELET COUNT 159 /CUMM (130-400); RBC DISTRIBUTION WIDTH 13.7 % (11.5-14.5); WHITE BLOOD CELL COUNT 5.8 /CUMM (4.8-10.8)
--- NOTE | 2017-01-10 14:28 | ULTRASOUND REPORT ---
EXAMINATION: UNILATERAL TRIPLEX SCANNING OF THE LEFT LOWER EXTREMITY CLINICAL INFORMATION: Left lower extremity swelling. COMPARISON: None. TECHNIQUE: Color-flow triplex imaging with spectral analysis and compression Doppler were performed on the left lower extremity. FINDINGS: Respiratory variation, normal compression and augmented flow are noted throughout the lower extremity. The visualized common femoral vein, superficial femoral vein, profunda femoral vein, popliteal vein and mid calf peroneal and posterior tibial venous segments show no evidence of deep venous thrombosis. There is a small Painting's cyst and subcutaneous edema. IMPRESSION: Normal triplex scan without evidence of deep venous thrombosis involving the left lower extremity.
[2017-01-10 15:13] VITALS: BP 184/80
== END 2017-01-10 15:49 ==
LOC: ERH 12:44
PROVIDERS: Emergency Medicine
DX: M79.605 Pain in left leg (principal); D64.9 Anemia, unspecified; N18.9 Chronic kidney disease, unspecified; E87.5 Hyperkalemia
CPT/HCPCS: 72170; 73562-LT; 93005; 93010

== ENCOUNTER 2017-02-04 07:47 | Inpatient (IN) | payer OTHER, MEDICARE ==
[~2017-02-04] VITALS: Ht 162.6 cm; Wt 48.1 kg
[~2017-02-04 07:47] MED LIST changes: +FUROSEMIDE40 M1 PO
--- NOTE | 2017-02-04 07:50 | ED MVC/FALL/TRAUMA COMPLAINT ---
History of Present Illness General Chief Complaint: Fall Stated Complaint: BIBA FALL Source: family, EMS, PCP, [facility] Exam Limitations: no limitations Vital Signs & Intake/Output Vital Signs & Intake/Output Vital Signs Date Time Temp Pulse Resp B/P B/P Pulse O2 O2 Flow FiO2 Mean Ox Delivery Rate 02/05 2000 95 Room Air 02/04 1600 97.1 40 18 104/70 95 Room Air 02/04 1111 97.1 41 18 138/61 100 02/04 0945 35 18 98/60 100 02/04 0756 Room Air 02/04 0753 98.9 41 18 153/66 100 Room Air Allergies Coded Allergies: acetaminophen (From PERCOCET) (UNKNOWN 12/10/16) oxycodone (From PERCOCET) (UNKNOWN 12/10/16) Reconcile Medications Acetaminophen (Tylenol Extra Strength) 500 MG TABLET 2 TAB PO TID PAIN CONTROL (Reported) Aspirin (Aspirin*) 81 MG TAB.CHEW 1 TAB PO DAILY HEART HEALTH (Reported) Carbidopa/Levodopa (Carbidopa-Levodopa 25-100 Tab) 25 MG-100 MG TABLET 2 TAB PO TID DAILY (Reported) Furosemide 40 MG TABLET 40 MG PO DAILY HIGH BLOOD PRESSURE (Reported) FOR 5 DAYS. TO CHANGE TO 20MG 02/05/17 Hydralazine HCl 50 MG TABLET 1 TAB PO BID HIGH BLOOD PRESSURE Levothyroxine Sodium (Levo-T) 25 MCG TABLET 1 TAB PO DAILY AC THYROID ( Reported) Magnesium Oxide 400 MG TABLET 1 TAB PO DAILY low magnesium Metoprolol Succ XL (Toprol XL) 25 MG TAB 1 TAB PO DAILY Heart (Reported) Pregabalin (Lyrica) 25 MG CAPSULE 1 CAP PO TID NEUROPATHY (Reported) Simvastatin (Simvastatin*) 40 MG TABLET 1 TAB PO QPM CHOLESTEROL (Reported) Sodium Bicarbonate 650 MG TABLET 2 TAB PO BID SUPPLEMENT (Reported) Triage Nurses Notes Reviewed? yes Onset: Abrupt Duration: hour(s): (1) Timing: single episode today Severity: severe Injuries/Fall Location: DENIES TRAUMA Method of Injury: SLIP OUT OF WHEELCHAIR Loss of Consciousness: prolonged (minutes) No Modifying Factors: none Associated Symptoms: BRADYCARDIA, SLEEPINESS HPI: This is an 86 old male with history of Parkinson's who presents to the nurse from the [facility]. He has a history of acute on chronic renal failure, hypertensive lung disease, previous coronary disease, Paget's disease. Patient was transferred here for bradycardia. He was had a witnessed slip out of the wheelchair staff helped him back up to the wheelchair and they didn't assessment and found his heart rate to be in the 40s. Patient only with complaints of chronic toe pain. Denies any chest pain or shortness of breath. Patient noted to be pale. He was transferred here for further evaluation. EKG in the field showed first-degree block with sinus bradycardia. His daughter who was in the room states that he was brought here in December for respiratory infection and transfer to short-term rehabilitation because he couldn't walk. He's been feeling short rehabilitation and is currently in the long-term care facility. Patient is a full code at this time but the daughter states if he needed a pacemaker she doesn't know if the family would like that for him considering his current condition. Past History Medical History Any Pertinent Medical History? see below for history Neurological: Parkinson's disease EENT: TRIBE Cardiovascular: CAD, hypertension, hyperlipidemia Respiratory: NONE Gastrointestinal: diverticulosis ATROPHIC GASTRITIS Hepatic: NONE Renal: chronic kidney disease Musculoskeletal: gout Psychiatric: NONE Endocrine: NONE Blood Disorders: NONE Cancer(s): NONE Other Medical Hx: paget disease History of MRSA: No History of VRE: No History of CDIFF: No Surgical History Surgical History: CABG, RIGHT INGUINAL HERNIA REPAIR Psychosocial History Who do you live with Patient/Self Services at Home Nursing What is your primary language Lithuanian Family History Family History, If Any: Relation not specified for: *No pertinent family history Hx Contributory? No Review of Systems Review of Systems Constitutional: Denies: chills, fever. Eyes: Reports: no symptoms. Ears, Nose, Throat, Mouth: Reports: no symptoms. Respiratory: Denies: cough, short of breath. Cardiovascular: Denies: chest pain. Gastrointestinal/Abdominal: Denies: abdominal pain. Genitourinary: Reports: no symptoms. Musculoskeletal: Reports: see HPI (BILATERAL TOE PAIN). Skin: Reports: no symptoms. Neurological/Psychological: Denies: headache. All Other Systems: Reviewed and Negative Physical Exam Physical Exam General Appearance: well developed/nourished, alert, awake Head: atraumatic, normal appearance Eyes: Bilateral: PERRL (LEFT PUPIL DILATED). Ears, Nose, Throat, Mouth: VERY HARD OF HEARING Neck: normal inspection, supple, full range of motion Respiratory: normal breath sounds, chest non-tender, no respiratory distress Cardiovascular: bradycardia Peripheral Pulses: 2+ radial (R), 2+ radial (L) Gastrointestinal: soft, non-tender Extremities: REPORT BILATERAL PITTING EDEMA, LEGS WRAPPED FROM KNEE DOWN BILATERALLY. ALL TOES ARE SWOLLEN BILATERALLY Core Measures ACS in differential dx? Yes ASA ordered for poss ACS? TAKEN FERRY HAND CVA/TIA Diagnosis: No Severe Sepsis Present: No Septic Shock Present: No Progress Differential Diagnosis: SINUS BRADYCARDIA CARDIAC, FIRST-DEGREE av BLOCK, MEDICATION REACTION, HYPERKALEMIA, WORSENING RENAL FUNCTION, FLUID OVERLOAD, CONGESTIVE HEART FAILURE Plan of Care: Orders Procedure Date/time Status XRY-CHEST XRAY, ONE VIEW ONLY 02/05 06 Active THYROID STIMULATING HORMONE 02/05 0600 Active FREE T4 02/05 0600 Active COMPREHENSIVE METABOLIC PANEL 02/05 0600 Active CBC WITHOUT DIFFERENTIAL 02/05 0600 Active THYROXINE 02/05 0500 Active Renal Dialysis Diet 02/04 L Complete Nothing by Mouth 02/04 D Active TROPONIN LEVEL 02/04 2200 Complete BASIC ELECTROLYTES PLUS BUN&CR 02/04 2200 Complete EKG 02/04 2200 Active Code Status 02/04 1803 Active TOTAL IRON BINDING CAPACITY 02/04 1620 Complete FERRITIN 02/04 1620 Complete SERUM IRON 02/04 1620 Complete TROPONIN LEVEL 02/04 1605 Complete EKG 02/04 1605 Active Wound Care/Dressing 02/04 1258 Complete Weight 02/04 1258 Complete VTE Mechanical Prophylaxis 02/04 1258 Complete Vital Signs 02/04 1258 Complete Turn and Reposition 02/04 1258 Active Drains/Tubes 02/04 1258 Complete Teach/Educate 02/04 1258 Active Skin Integrity Protocol 02/04 1258 Active Skin/Pressure Ulcer Assess (Sk 02/04 1258 Active Precautions 02/04 1258 Active Pain Treatment and Response 02/04 1258 Active Nutritional Intake, Monitor 02/04 1258 Active Isolation 02/04 1258 Active CIWA 02/04 1258 Complete Patient Care Conference 02/04 1258 Active Activity/Ambulation 02/04 1258 Active VRE ACTIVE SURVIELLANCE 02/04 1121 Active ACTIVE SURVEILLANCE NARES 02/04 1121 Active LACTIC ACID 02/04 1115 Complete House Staff 02/04 1106 Active EKG 02/04 1046 Active Lab Add-on Test 02/04 1018 Active ECHOCARDIOGRAM 02/04 1017 Active Pathway - chart 02/04 1015 Active House Staff 02/04 1015 Active Code Status 02/04 1015 Complete Patient Data 02/04 1005 Active ED Holding Orders 02/04 0947 Active Admit to inpatient 02/04 0947 Active Vital Signs 02/04 0947 Active Code Status 02/04 0947 Complete VIT D 25 HYDROXY 02/04 0820 Active THYROID STIMULATING HORMONE 02/04 0820 Active PHOSPHORUS 02/04 0820 Active MAGNESIUM 02/04 0820 Active GLYCOSYLATED HGB 02/04 0820 Active FREE T4 02/04 0820 Active B-TYPE NATRIURETIC PEP (BNP) 02/04 0820 Active Telemetry/Sole Seamer 02/04 0815 Active URINALYSIS 02/04 0815 Complete TROPONIN LEVEL 02/04 0815 Active PARTIAL THROMBOPLASTIN TIME 02/04 0815 Complete PROTHROMBIN TIME 02/04 0815 Complete LACTIC ACID 02/04 0815 Active COMPREHENSIVE METABOLIC PANEL 02/04 0815 Active CBC WITHOUT DIFFERENTIAL 02/04 0815 Complete EKG 02/04 0748 Active PT Evaluate & Treat 02/04 UNK Active Lab Add-on Test 02/04 UNK Active Wound Care/Dressing 02/04 UNK Active VTE Mechanical Prophylaxis 02/04 UNK Active Nursing Misc 02/04 UNK Active NGT 02/04 UNK Active Intake & Output 02/04 UNK Active Hemoccult 02/04 UNK Active Torres, Insertion/Removal/Asses 02/04 UNK Active Current Medications Sig/Miriam Start time Last Medication Dose Stop Time Status Admin Epoetin Luca 20,000 UNITS Q 2 WEEKS 02/18 1000 CAN (Epogen (Order in Multipiles Of 1000U)) Aspirin 81 MG DAILY 02/05 1000 AC (Aspirin) Pregabalin 50 MG DAILY 02/05 1000 AC (Lyrica) Levothyroxine Sodium 0.025 MG DAILY AC 02/05 0700 AC (Synthroid) Dextrose 25 GM ONCE ONE 02/04 2345 UNVr (Dextrose 50%) 02/04 2346 Insulin Human Regular 10 UNITS ONCE ONE 02/04 2345 CANr (NovoLIN R) 02/04 2346 Insulin Human Regular 10 UNITS ONCE ONE 02/04 2345 UNVr (NovoLIN R) 02/04 2346 Calcium Gluconate 1 GM ONCE ONE 02/04 2330 UNVr (Calcium Gluconate) 02/05 0029 Sodium Chloride 100 ML (Normal Saline 0.9%) Phenol 2 SPRAY Q4 HRS NEEDED PRN 02/04 2330 AC (Chloraseptic (Phenaseptic) [place]) Hydralazine HCl 50 MG BID 02/04 220 CAN (Apresoline) Sodium Bicarbonate 1,300 MG BID 02/04 2200 AC 02/04 (Sodium Bicarb 325MG 2303 Tab) Epoetin Luca 20,000 U Q 2 WEEKS 02/04 1830 AC 02/04 (PROCRIT) 2304 Atorvastatin Calcium 20 MG 1700 02/04 1700 AC (Lipitor) Carbidopa/Levodopa 2 TAB TID 02/04 1600 AC 02/04 (Sinemet 25/100MG) 2304 Heparin Sodium 5,000 UNIT Q8 02/04 1400 AC 02/04 (Porcine) 2304 Acetaminophen 650 MG Q6-PRN PRN 02/04 1200 AC (Tylenol) Laboratory Tests 02/04/175: Anion Gap 14, Estimated GFR 14 L, BUN/Creatinine Ratio 27.3 H, Troponin I 0.02 02/04/17 1620: Iron 79, TIBC 276, Ferritin 217.0, Troponin I < 0.01 02/04/17 1520: Lactic Acid 1.1 02/04/17 1140: Urine Color YEL, Urine Clarity CLEAR, Urine pH 6.0, Ur Specific [place] 1.015, Urine Protein 100 H, Urine Ketones NEG, Urine Nitrite NEG, Urine Bilirubin NEG, Urine Urobilinogen 0.2, Ur Leukocyte Esterase NEG, Ur Microscopic SEDIMENT EXAMINED, Urine RBC 10-15 H, Urine WBC RARE, Ur Epithelial Cells RARE, Urine Bacteria FEW H, Urine Mucus RARE, Urine Hemoglobin TRACE-INTACT H, Urine Glucose NEG 02/04/17 0849: PT 10.7, INR 1.02, APTT 33 02/04/17 0820: Anion Gap 13, Estimated GFR 13 L, BUN/Creatinine Ratio 25.8 H, Glucose 77, Hemoglobin A1c Pending, Lactic Acid 1.5, Calcium 6.4 L, Phosphorus 8.3 H, Magnesium 3.0 H, Total Bilirubin 0.4, AST 13 L, ALT 15 L, Alkaline Phosphatase 139 H, Troponin I 0.02, Ovn-T-Tptorlabnlf Pept 72093 H, Total Protein 5.6 L, Albumin 2.9 L, Globulin 2.7, Albumin/Globulin Ratio 1.1, 25-OH Vitamin D Total 13.6 L, TSH 8.890 H, Free T4 1.03, CBC w Diff NO MAN DIFF REQ, RBC 2.56 L, MCV 92.1, MCH 30.7, RDW 14.8 H, MPV 8.6, Gran % 72.7, Lymphocytes % 15.2 L, Monocytes % 9.8 H, Eosinophils % 1.8, Basophils % 0.5, Absolute Granulocytes 3.6, Absolute Lymphocytes 0.7 L, Absolute Monocytes 0.5, Absolute Eosinophils 0.1, Absolute Basophils 0, PUBS MCHC 33.3 Microbiology 02/04 144 UPPER RESP: Surveillance Culture - RECD 02/05 1440 GI: Surveillance Culture - RECD Heart rate is 35. His systolic blood pressure now 90. Patient is on pacer pads. Atropine 1 mg ordered. D/W DR MURILLO, DR EVANS. ADMITTED TO ICU UNDER DR FERRELL SERVICE. DAUGHTER AT [facility]ESIDE STATES THAT FAMILY WOULD BE AGREEABLE FOR DIALYSIS IF THAT IS WHAT IS DEEMED NECESSARY. PATIETN REMAINS EASILY AROUSABLE, WITHOUT SYMPTOMS EXCEPT TOE PAIN ALTHROUGH PATIENT APPEARS LETHARGIC. (DYLAN RICKS,ALEXANDRO) Initial ED EKG: BRADYCARDIA AT 40 BPM fIRST-DEGREE av BLOCK Prior EKG: changed Rhythm Strip: sinus bradycardia Departure Departure Time of Disposition: 946 Disposition: STILL A PATIENT Condition: Stable Clinical Impression Primary Impression: Sinus bradycardia Referrals: NANCI RICKS,JYOTI Davis (PCP/Family) Departure Forms: Customer Survey General Discharge Information Admission Note Spoke With: SHERIN FERRELL MD Documentation of Exam: Documentation of any treatments & extenuating circumstances including Concerns Regarding Discharge (functional status, medication knowledge or non-compliance, living conditions, etc.) that warrant an admission rather than observation: [ICU MONITOR, PACER PADS, ATROPINE BY BEDSIDE, HOLD BETA BLOCKERS, RENAL CONSULT DR MURILLO CONSULTED FOR WORSENING RENAL FAILURE, DR EVANS CONSULTED. PATIENT'S FAMILY AGREES TO DIALYSIS IF NECESSARY] Critical Care Note Critical Care Note Critical Care Time: 30-74 min
--- NOTE | 2017-02-04 07:51 | NUR ---
PT BIBA [facility] DUE HR IN 40s. PER EMS REPORT, PT HAD UNWITNESSED "SLIDE" FROM WHEELCHAIR TO FLOOR WITH NO INJURY OR HEADSTRIKE EVIDENT. UPON ASSESSMENT AT SCENE, PT WAS NOTED TO HAVE LOW HR AND EMS CALLED. PT IS AWAKE AND RESPONSIVE, [place], NO RESPIRATORY DIFFICULTY. SKIN IS COOL AND DRY; GEMERALIZED EDEMA, JALEESA WRAPS TO BLE.
--- NOTE | 2017-02-04 08:22 | NUR ---
PT WITH HR 38-41, PACING PADS PLACED, PT DENIES DIZZINESS & SOB. DAUGHTER AT BEDSIDE
[2017-02-04 08:30] LABS: ABSOLUTE BASOPHIL COUNT 0 /CUMM (0.0-0.2); ABSOLUTE EOSINOPHIL COUNT 0.1 /CUMM (0.0-0.7); ABSOLUTE GRANULOCYTE CT 3.6 /CUMM (1.4-6.5); ABSOLUTE LYMPH COUNT 0.7 /CUMM (1.2-3.4); ABSOLUTE MONOCYTE COUNT 0.5 /CUMM (0.10-0.60); BASOPHIL % 0.5 % (0.0-2.0); EOSINOPHIL % 1.8 % (0-5); GRANULOCYTE % 72.7 % (42.2-75.2); HEMATOCRIT 23.6 % (42-52); MEAN CORPUSCULAR HGB 30.7 PG (27.0-31.0); MEAN CORPUSCULAR HGB CONC 33.3 G/DL (33.0-37.0); MEAN CORPUSCULAR VOLUME 92.1 FL (80.0-94.0); MEAN PLATELET VOLUME 8.6 FL (7.4-10.4); PLATELET COUNT 158 /CUMM (130-400); RBC DISTRIBUTION WIDTH 14.8 % (11.5-14.5); RED BLOOD CELL CT 2.56 /CUMM (4.70-6.10); WHITE BLOOD CELL COUNT 4.9 /CUMM (4.8-10.8)
--- NOTE | 2017-02-04 08:50 | RADIOLOGY REPORT ---
EXAMINATION: CHEST 1 VIEW CLINICAL INFORMATION: CHF. Bradycardia. COMPARISON: 12/10/2016. TECHNIQUE: An AP view of the chest is provided. FINDINGS: In the setting of low lung volumes, there is marked enlargement to the cardiac silhouette. There are intact midline sternal wires. There is moderate vascular congestion. I cannot exclude the presence of a retrocardiac infiltrate. There are neither pleural effusions nor pneumothoraces. The osseous structures are stable. IMPRESSION: Limited evaluation due to markedly low lung volumes. Cardiomegaly with moderate vascular congestion is suspected. A retrocardiac infiltrate cannot be excluded. In consideration of the limited technique, consider a short-term follow-up with improved positioning and degree of inflation.
--- NOTE | 2017-02-04 08:53 | NUR ---
PT WITH HR DROPPING TO 34. ASYMPTOMATIC. BP TO 106/55 AUTO. 1MG ATROPING GIVEN PER ORDER. HR IMPROVED TO 51
[2017-02-04 09:19] LABS: PT 10.7 SEC (9.4-12.5); PTT 33 SEC (25-37)
--- NOTE | 2017-02-04 09:28 | NUR ---
CRITICAL TEST RESULTS [id number] SHARONDA AQUINO M 86 M TESTS AND RESULTS: bun 111 Results received and read back by: STANLEY MACDONALD Results received date and time: 02/04/17 0928 The following provider was notified of the results, and read the results back: dr. manrique Notified date and time: 02/04/17 at 0928
--- NOTE | 2017-02-04 10:18 | NUR ---
bed 110-1
[2017-02-04] MEDS ORDERED: LYRICA25 M1 PO (10:25)
[2017-02-04] MEDS ORDERED: TYLENOL EXTRA500 M2 PO (10:26)
--- NOTE | 2017-02-04 10:27 | NUR ---
DR MATHEW WITH PT AND DAUGHTER
--- NOTE | 2017-02-04 11:01 | History & Physical ---
MYRTLE GUTHRIE 02/04/17 1101: General Information and HPI Source of Information: family, old records Exam Limitations: confusion History of Present Illness: He is 86-year-old man with past medical history of Parkinson's disease, hypertension, hypothyroidism, chronic kidney disease stage IV secondary to nephrosclerosis, coronary artery disease status post CABG, paget's disease BIBA from [facility] after he had an unwitnessed slide from the wheelchair to floor with no injury or head strike. Vitals were done by nursing staff and he was found to have bradycardia to 40s and called EMS. Patient was alert and responsive without any respiratory difficulty. Upon arrival to ER his temperature was 98.9, pulse 41, respiratory rate 18, blood pressure 153/66 and oxygen saturation 100% on room air. Patient denied any chest pain or discomfort,, dizziness or breathing difficulty. Pacing pads were placed. His heart rate dropped from 34. Patient was asymptomatic. He was given 1 mg of atropine. Heart rate improved to 51. Upon my evaluation daughter was at bedside. Patient is very hard of hearing. He is alert, awake and responsive. Complaining of left toe pain. Denies any chest pain or discomfort, dizziness or lightheadedness, breathing difficulty, abdominal pain. Allergies/Medications Allergies: Coded Allergies: acetaminophen (From PERCOCET) (UNKNOWN 12/10/16) oxycodone (From PERCOCET) (UNKNOWN 12/10/16) Home Med list Acetaminophen (Tylenol Extra Strength) 500 MG TABLET 2 TAB PO TID PAIN CONTROL (Reported) Aspirin (Aspirin*) 81 MG TAB.CHEW 1 TAB PO DAILY HEART HEALTH (Reported) Carbidopa/Levodopa (Carbidopa-Levodopa 25-100 Tab) 25 MG-100 MG TABLET 2 TAB PO TID DAILY (Reported) Furosemide 40 MG TABLET 40 MG PO DAILY HIGH BLOOD PRESSURE (Reported) FOR 5 DAYS. TO CHANGE TO 20MG 02/05/17 Hydralazine HCl 50 MG TABLET 1 TAB PO BID HIGH BLOOD PRESSURE Levothyroxine Sodium (Levo-T) 25 MCG TABLET 1 TAB PO DAILY AC THYROID ( Reported) Magnesium Oxide 400 MG TABLET 1 TAB PO DAILY low magnesium Metoprolol Succ XL (Toprol XL) 25 MG TAB 1 TAB PO DAILY Heart (Reported) Pregabalin (Lyrica) 25 MG CAPSULE 1 CAP PO TID NEUROPATHY (Reported) Simvastatin (Simvastatin*) 40 MG TABLET 1 TAB PO QPM CHOLESTEROL (Reported) Sodium Bicarbonate 650 MG TABLET 2 TAB PO BID SUPPLEMENT (Reported) Compliance With Home Meds: GOOD Past History Travel History Traveled to [place] past 21 day No Medical History Neurological: Parkinson's disease E[place]: [place] Cardiovascular: CAD, hypertension, hyperlipidemia Respiratory: NONE Gastrointestinal: diverticulosis ATROPHIC GASTRITIS Hepatic: NONE Renal: chronic kidney disease Musculoskeletal: gout Psychiatric: NONE Endocrine: NONE Blood Disorders: NONE Cancer(s): NONE Other Medical Hx: paget disease History of MRSA: No History of VRE: No History of CDIFF: No Surgical History Surgical History: CABG, RIGHT INGUINAL HERNIA REPAIR Past Family/Social History Family History Relations & Conditions if any Relation not specified for: *No pertinent family history Psychosocial History Services at Home: Nursing ETOH Use: denies use Illicit Drug Use: denies illicit drug use Functional Ability ADLs Independent: dressing, eating, toileting, bathing. Ambulation: walker IADLs Independent: telephone. Unknown: shopping, housework, finances, food prep, transportation. Review of Systems Review of Systems Constitutional: Reports: see HPI. Exam & Diagnostic Data Last 24 Hrs of Vital Signs/I&O Vital Signs Date Time Temp Pulse Resp B/P B/P Pulse O2 O2 Flow FiO2 Mean Ox Delivery Rate 02/04 1111 97.1 41 18 138/61 100 02/04 0945 35 18 98/60 100 02/04 0756 Room Air 02/04 0753 98.9 41 18 153/66 100 Room Air Intake & Output 02/04 1600 02/04 0800 02/04 0000 Intake Total 0 Output Total Balance 0 Intake, Oral 0 Physical Exam General Appearance Alert, No Acute Distress, confused, pale Skin bruises on B/L upper ext. skin abrasions on both knees. skin break down between 3rd, 4th and 5th digit without any erythema or discharge. extremely tender to touch. HEENT dry mucous membranes Cardiovascular bradycardia Lungs b/l basal crackles Abdomen Normal Bowel Sounds, Soft, No Tenderness Extremities 2+ edema B/L. conchita wraps in place Last 24 Hrs of Labs/Deshawn: Laboratory Tests 02/04/17 0849: PT 10.7, INR 1.02, APTT 33 02/04/17 0820: Anion Gap 13, Estimated GFR 13 L, BUN/Creatinine Ratio 25.8 H, Glucose 77, Lactic Acid 1.5, Calcium 6.4 L, Total Bilirubin 0.4, AST 13 L, ALT 15 L, Alkaline Phosphatase 139 H, Troponin I 0.02, Total Protein 5.6 L, Albumin 2.9 L, Globulin 2.7, Albumin/Globulin Ratio 1.1, TSH Pending, Free T4 Pending, CBC w Diff NO MAN DIFF REQ, RBC 2.56 L, MCV 92.1, MCH 30.7, RDW 14.8 H, MPV 8.6, Gran % 72.7, Lymphocytes % 15.2 L, Monocytes % 9.8 H, Eosinophils % 1.8, Basophils % 0.5, Absolute Granulocytes 3.6, Absolute Lymphocytes 0.7 L, Absolute Monocytes 0.5, Absolute Eosinophils 0.1, Absolute Basophils 0, PUBS MCHC 33.3 Microbiology 02/04 1121 UPPER RESP: Surveillance Culture - ORD 02/04 1121 GI: Surveillance Culture - ORD Diagnostic Data EKG Results sinus bradycardia. No acute ST-T wave changes. MA int 384 CXR Results markedly low lung volumes. Cardiomegaly with moderate vascular congestion is suspected. Assessment/Plan Assessment: He is 86-year-old man with past medical history of Parkinson's disease, hypertension, hypothyroidism, chronic kidney disease stage IV secondary to nephrosclerosis, coronary artery disease status post CABG, paget's disease. US-RENAL/KIDNEY 12/13/2016: Bilateral diffuse cortical thinning and increased echogenicity. Multiple bilateral benign-appearing cysts. Nonobstructing 0.5 cm calculi are seen in the mid and lower pole of the left kidney. ECHOCARDIOGRAM 12/12/2016 Normal left ventricular systolic function with mild concentric hypertrophy. Type 1 diastolic dysfuction with 'L' wave suggesting elevated left ventricular end diastolic pressure. Mid to moderate Aortic stenosis. Mild to moderate Pulmonary hypertension. PROBLEM LIST 1. Sinus bradycardia 2. Fluid overload 3. Acute on chronic kidney disease 4. Skin breakdown between third fourth and fifth digit of left foot 5. Hyponatremia secondary to fluid overload 6. Transaminitis secondary to liver congestion 7. Hyperkalemia secondary to chronic kidney disease 8. TSH 8.890. Could be contributing bradycardia or due to acute stress. 9. Chronic anemia 10. History of coronary artery disease status post CABG, hypothyroidis, hypertension, Parkinson's disease PLAN * Monitor vitals closely * Pacer pads in place and atropine at bedside * Watch for arrhythmias * Hold beta misa and Lasix * Cardio consult * Nephro consult * Continue other home medications * Check kidney functions daily * Avoid nephrotoxins and NSAIDs * Strict I's and O's * Leg elevation * Repeat thyroid functions in a.m. * wound care * Physical therapy evaluation and treatment * DVT prophylaxis * Nothing by mouth for now in case of possible pacemaker placement * Full code * Daughter need to discuss with other family members about CODE STATUS and further goals of care As Ranked By This Provider Problem List: 1. Sinus bradycardia 2. CKD (chronic kidney disease) Core Measures/Miscellaneous Acute Coronary Syndrome ACS Diagnosis: No Cerebrovascular Accident CVA/TIA Diagnosis: No Congestive Heart Failure CHF Diagnosis: No VTE (View Protocol) VTE Risk Factors: Acute medical illness, Age > 40 [facility] prophylaxis d/t: No contraindications No VTE Pharm Prophylaxis d/t: No contraindications VTE Diagnosis: No VTE Type: NONE VTE Confirmed by (Test): NONE Sepsis (View Protocol) Severe Sepsis Present: No Septic Shock Septic Shock Present: No Miscellaneous Documentation Attending Case Discussed With: SHERIN FERRELL MD Primary Care Physician: JYOTI CHRISTINE MD Patient sees these Specialists Dr. Manav Jones Level of Patient Care: Critical Care (CRI) Consults Needed: Consulting Specialty: Cardiology SHERIN FERRELL MD 02/04/17 2143: Attending Review Statement Attending Statement Attending Statement: examined this patient, discuss w/resident/PA/OIL SPREADER OPERATOR, agreed w/resident/PA/OIL SPREADER OPERATOR, discussed with family, reviewed EMR data (avail), reviewed images, amended to note Attending Assessment/Plan: The patient is an 86 yo male with h/o Parkinson's Disease, HTN, hypothyroid, CAD (s/p CABG), and chronic renal failure (stage IV-nephrosclerosis) who is a patient at [facility] who was sent to the ED today when he had an observed slide off of his wheelchair to the floor. He was found to have a HR of 40. No syncope described. He denied any chest pain or dyspnea. In the ED he received atropine with an increase in HR to 50. Labs showed worsening of his renal failure and chronic anemia. Physical Exam: VS: T 97.4, P 40, R 18, BP 138/61, PO 100% HEENT: eyes- PERRLA, EOMI meeta- moist mucosa Neck: no bruits/JVD Chest: clear, diminished BS at bases Cor: reg rhythm, cindy, nl S1, S2 w/o murm Abd: BS+, soft, NT Ext: 2+ edema, pulses 1+, right foot with interdigital skin breakdown w/o purulence Neuro: non-focal exam, some cog wheeling extremities Labs/Tests- as above Impression/Plan: #Bradycardia- sinus bradycardia on EKG. Was discovered after he slid to floor out of wheelchair today at [facility]. No chest pain, dyspnea. Received some atropine in ED with increase in rate. Plan: Admit to ICU- close cardiac monitoring. Atropine at bedside and external pacer attached. Cardiology consult Dr. Kumar. Hold beta misa at present. #Acute on Chronic Renal Failure- has had progressive renal failure this year. Cr now 4.3 was 3.5 in 12/28. May be some role in renal hypoperfusion due to low HR. Family had been considering option of dialysis with prior discussions with nephrology. P: Nephrology consult - Dr. Waldrop. Hold furosemide at present- follow BEP. Renal US to exclude obstruction (doubt). Avoid nephrotoxins. Family discussion regarding potential need for dialysis. #Acute on Chronic Anemia- H/H decreased slightly. Most likely secondary to progressive renal failure rather than GI bleeding. Plan: Will follow and consider transfusion if decreases further. Will discuss epojen with Nephrology. #Parkinson's- on Carbidopa/Levodopa. Plan: Continue meds. #Hypothyroid- TSH minimally elevated. Plan: Continue Levothyroxine. #CAD/HTN- on Hydralazine, metoprolol, ASA. Plan: Watch BP - hold metoprolol due to bradycardia. #HL- on Simvastatin. Plan: Continue Simvastatin. #Advanced Directives- patient is currently full code status, however his daughter is having ongoing conversations with the patient and family regarding goals of care. Initially they were considering dialysis, however Dr. Waldrop has recommended against. Also had discussions with Dr. Kumar. Plan: Will discuss with family further tomorrow.
--- NOTE | 2017-02-04 12:06 | Cons- Cardiology ---
General Information and HPI Consulting Request Date of Consult: 02/04/17 Requested By: SHERIN FERRELL MD Reason for Consult: Bradycardia. Source of Information: patient, family, old records Exam Limitations: physical impairment (hearing impaired) History of Present Illness: Mr. 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 who was sent to the ED from his ECF after a "slide" from his wheelchair to the floor without obvious injury and an initial assessment that revealed a heart rate in the 40 bpm range on beta misa therapy (metoprolol ER 25 mg daily). Mr. Castro is extremely hard of hearing, which is making communication difficult, but denies any chest discomfort, palpitations, shortness of breath, etc. Allergies/Medications Allergies: Coded Allergies: acetaminophen (From PERCOCET) (UNKNOWN 12/10/16) oxycodone (From PERCOCET) (UNKNOWN 12/10/16) Home Med List: Acetaminophen (Tylenol Extra Strength) 500 MG TABLET 2 TAB PO TID PAIN CONTROL (Reported) Aspirin (Aspirin*) 81 MG TAB.CHEW 1 TAB PO DAILY HEART HEALTH (Reported) Carbidopa/Levodopa (Carbidopa-Levodopa 25-100 Tab) 25 MG-100 MG TABLET 2 TAB PO TID DAILY (Reported) Furosemide 40 MG TABLET 40 MG PO DAILY HIGH BLOOD PRESSURE (Reported) FOR 5 DAYS. TO CHANGE TO 20MG 02/05/17 Hydralazine HCl 50 MG TABLET 1 TAB PO BID HIGH BLOOD PRESSURE Levothyroxine Sodium (Levo-T) 25 MCG TABLET 1 TAB PO DAILY AC THYROID ( Reported) Magnesium Oxide 400 MG TABLET 1 TAB PO DAILY low magnesium Metoprolol Succ XL (Toprol XL) 25 MG TAB 1 TAB PO DAILY Heart (Reported) Pregabalin (Lyrica) 25 MG CAPSULE 1 CAP PO TID NEUROPATHY (Reported) Simvastatin (Simvastatin*) 40 MG TABLET 1 TAB PO QPM CHOLESTEROL (Reported) Sodium Bicarbonate 650 MG TABLET 2 TAB PO BID SUPPLEMENT (Reported) Current Medications: Current Medications Sig/Miriam Start time Last Medication Dose Route Stop Time Status Admin Acetaminophen 975 MG ONCE ONE 02/04 1045 DC 02/04 PO 02/04 1046 1045 Acetaminophen 0 .STK-MED ONE 02/04 1016 DC PO Atropine Sulfate 1 MG ONE ONE 02/04 0845 DC 02/04 IV 02/04 0846 0850 Atropine Sulfate 0 .STK-MED ONE 02/04 0824 DC .ROUTE Heparin Sodium 5,000 UNIT Q8 02/04 1400 AC (Porcine) SC Sodium Chloride 1,000 ML .[id number] 02/04 1015 DC IV Review of Systems Review of Systems: A 14 point system review was performed, with his daughter's assistance, and was unremarkable other than for the fact that the patient wears glasses, has easy bruising, and chronic edema. Past History Travel History Traveled to [place] past 21 day No Medical History Neurological: Parkinson's disease EENT: [place] Cardiovascular: CAD, hypertension, hyperlipidemia Respiratory: NONE Gastrointestinal: diverticulosis ATROPHIC GASTRITIS Hepatic: NONE Renal: chronic kidney disease Musculoskeletal: gout, osteoarthritis Psychiatric: NONE Endocrine: NONE Blood Disorders: NONE Cancer(s): NONE Other Medical Hx: paget disease Surgical History Surgical History: CABG, knee replacement, RIGHT INGUINAL HERNIA REPAIR Family History Relations & Conditions If Any: Relation not specified for: *No pertinent family history Psychosocial History Services at Home: Nursing ETOH Use: denies use Illicit Drug Use: denies illicit drug use Functional Ability ADLs Independent: dressing, eating, toileting, bathing. Ambulation: walker IADLs Independent: telephone. Unknown: shopping, housework, finances, food prep, transportation. Exam & Diagnostic Data Vital Signs and I&O Vital Signs Date Time Temp Pulse Resp B/P B/P Pulse O2 O2 Flow FiO2 Mean Ox Delivery Rate 02/04 0756 Room Air 02/04 0753 98.9 41 18 153/66 100 Room Air Intake & Output 02/04 1600 02/04 0800 02/04 0000 02/03 1600 02/03 0800 02/03 0000 Intake Total 0 Output Total Balance 0 Intake, Oral 0 Physical Exam: Pale-appearing elderly male in no acute distress with nasal oxygen in place. HEENT: Normocephalic, atraumatic, EOMI, slightly dry mucous membranes. Neck: No JVD, no bruits. Lungs: Few crackles at the bases. Heart: S1, S2 with grade 1-2/6 systolic ejection type murmur best heard near the base. No gallop or rub appreciated. PMI fifth ICS at MCL. Abdomen: Soft, nontender, positive bowel sounds. Extremities: Legs wrapped and 2+ bilateral lower extremity edema. Labs/Deshawn Results: Laboratory Tests 02/04 02/04 0849 0820 Chemistry Sodium (137 - 145 mmol/L) 129 L Potassium (3.5 - 5.1 mmol/L) 5.7 H Chloride (98 - 107 mmol/L) 95 L Carbon Dioxide (22 - 30 mmol/L) 22 Anion Gap (5 - 16) 13 BUN (9 - 20 mg/dL) 111 *H Creatinine (0.7 - 1.2 mg/dL) 4.3 H Estimated GFR (>60 ml/min) 13 L BUN/Creatinine Ratio (7 - 25 %) 25.8 H Glucose (65 - 99 mg/dL) 77 Lactic Acid (0.7 - 2.1 mmol/L) 1.5 Calcium (8.4 - 10.2 mg/dL) 6.4 L Total Bilirubin (0.2 - 1.3 mg/dL) 0.4 AST (17 - 59 U/L) 13 L ALT (21 - 72 U/L) 15 L Alkaline Phosphatase (< 127 U/L) 139 H Troponin I (<0.11 ng/ml) 0.02 Total Protein (6.3 - 8.2 g/dL) 5.6 L Albumin (3.5 - 5.0 g/dL) 2.9 L Globulin (1.9 - 4.2 gm/dL) 2.7 Albumin/Globulin Ratio (1.1 - 2.2 %) 1.1 TSH (0.270 - 4.200 uIU/mL) Pending Free T4 (0.85 - 1.93 ng/dL) Pending Coagulation PT (9.4 - 12.5 SEC) 10.7 INR (0.90 - 1.17) 1.02 APTT (25 - 37 SEC) 33 Hematology CBC w Diff NO MAN DIFF REQ WBC (4.8 - 10.8 /CUMM) 4.9 RBC (4.70 - 6.10 /CUMM) 2.56 L Hgb (14.0 - 18.0 G/DL) 7.9 L Hct (42 - 52 %) 23.6 L MCV (80.0 - 94.0 FL) 92.1 MCH (27.0 - 31.0 PG) 30.7 RDW (11.5 - 14.5 %) 14.8 H Plt Count (130 - 400 /CUMM) 158 MPV (7.4 - 10.4 FL) 8.6 Gran % (42.2 - 75.2 %) 72.7 Lymphocytes % (20.5 - 51.1 %) 15.2 L Monocytes % (1.7 - 9.3 %) 9.8 H Eosinophils % (0 - 5 %) 1.8 Basophils % (0.0 - 2.0 %) 0.5 Absolute Granulocytes (1.4 - 6.5 /CUMM) 3.6 Absolute Lymphocytes (1.2 - 3.4 /CUMM) 0.7 L Absolute Monocytes (0.10 - 0.60 /CUMM) 0.5 Absolute Eosinophils (0.0 - 0.7 /CUMM) 0.1 Absolute Basophils (0.0 - 0.2 /CUMM) 0 PUBS MCHC (33.0 - 37.0 G/DL) 33.3 Diagnostic Data EKG Results (02/04/2017) sinus bradycardia at 42 bpm, first-degree AV block, RBBB, small inferior Q waves, abnormal precordial R wave progression leads V1-V3, cannot exclude old ASMI. Slower rate when compared to previous tracing (01/10/2017). CXR Results (02/04/2017):Limited evaluation due to markedly low lung volumes. Cardiomegaly with moderate vascular congestion is suspected. A retrocardiac infiltrate cannot be excluded. In consideration of the limited technique, consider a short-term follow-up with improved positioning and degree of inflation. Other Results Echocardiogram (12/12/2016): Normal left ventricular systolic function with mild concentric hypertrophy. Type 1 diastolic dysfuction with 'L' wave suggesting elevated left ventricular end diastolic pressure. Mild to moderate aortic stenosis. Mild to moderate Pulmonary hypertension. Assessment/Plan Assessment/Plan [id number]/ history of OA, Paget's dz, Parkinson's dz, hypothyroidism, remote tob use, mild pul HTN, HTN, CKD, anemia, HLD, gout, CAD s/p remote CABG, mild- moderate , mild LVH w/ stage 1 diastolic dysfunction, 1st degree AVB, RBBB, recently adm (12/10-12/13/2016) for deteriorating fx status, poorly controlled HTN, SRIKANTH on CKD, ? volume overload vs HFpEF, etc. who presented from ECF after a "slide" from his wheelchair to floor w/o injury and an assessment that revealed a HR in the 40 bpm range on BB Rx (metoprolol ER 25 mg daily). Recommendations: * Admission to telemetry, follow-up troponins, follow-up electrocardiograms. * Keep transcutaneous pacemaker and atropine at the ready, as needed. * Along with the house staff, discussed with the patient's daughter, DNR/DNI status, potential need for implantation of a transvenous and/or permanent pacemaker, etc. she will be discussing his CODE STATUS, etc. with her father and other family members. * Hold beta misa therapy and any other medications that might cause bradycardia or slow conduction through the AV junction. * Hold diuretic therapy for the short-term, treat hyperkalemia, and recheck BUN/ creatinine along with potassium this p.m. * Repeat CXR with better positioning, as recommended by radiology, to better assess if vascular congestion present. * No need for repeat echocardiogram as one performed last month. * Nephrology consultation, given worsening renal status and need to discuss option of hemodialysis. No history of recent aminoglycosides, IV contrast, NSAIDs, etc. Exclude obstruction. * Check magnesium, check phosphorus, check NT-PRO BNP, glycosylated hemoglobin A1c, * Consider endocrine consultation, given poorly controlled hypothyroidism which could be contributing to the patient's bradycardia. * Note anemia that is likely secondary to SRIKANTH on CKD, but also check all stools for occult blood. * DVT prophylaxis. Further recommendations will follow, Thank you. Consult Acknowledgment - Thank you for your consult request.
[2017-02-04 16:00] VITALS: BP 104/70
--- NOTE | 2017-02-04 16:39 | Cons- Nephrology ---
General Information and HPI Consulting Request Date of Consult: 02/04/17 Requested By: SHERIN FERRELL MD Reason for Consult: SRIKANTH on Stage V CKD Source of Information: family, old records Exam Limitations: unable to give history History of Present Illness: The patient is an 86-year-old male with a past medical history most significant for stage V chronic kidney disease thought to be secondary to hypertensive nephrosclerosis and cardiorenal syndrome with baseline creatinine which has been slowly rising most recently 4.0 on January 18, Parkinson's disease for which she is currently in a [facility], CAD status post CABG, 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 I was unable to gather history from the patient because of how hard of hearing he was, but the patient reportedly slipped from his wheelchair without any specific injury or head straight. It is unknown whether or not prodromal symptoms. He was noted by the staff to have a heart rate in the 40s for which EMS was called. Upon presentation to [facility], the patient was found to heart rate of 41 with a blood pressure 153/66. Potassium 5.7. Troponin negative. Calcium 6.4 with an albumin of 2.9. Pacer pads were placed but the patient ultimately was not paced. Beta misa therapy was held. In speaking with the patient's family, they're not completely aware what medications he may been getting at the [facility]. It was listed that he was on 40 mg oral Lasix although this was as needed for swelling. That being said, he does have significant swelling of his lower extremities for months. He was noted by Dr. Em in his prior consultation notes at the patient was particularly sensitive to diuretics. He was not clear but doubtful that he was receiving any NSAIDs. The only thing that the family noted was that he was having pain in his legs. It is worth noting that his hemoglobin was 7.9 and has been steadily falling since earlier this year. Iron sats were borderline in November. Of note, his PTH was 1071 on January 18. Allergies/Medications Allergies: Coded Allergies: acetaminophen (From PERCOCET) (UNKNOWN 12/10/16) oxycodone (From PERCOCET) (UNKNOWN 12/10/16) Home Med List: Acetaminophen (Tylenol Extra Strength) 500 MG TABLET 2 TAB PO TID PAIN CONTROL (Reported) Aspirin (Aspirin*) 81 MG TAB.CHEW 1 TAB PO DAILY HEART HEALTH (Reported) Carbidopa/Levodopa (Carbidopa-Levodopa 25-100 Tab) 25 MG-100 MG TABLET 2 TAB PO TID DAILY (Reported) Furosemide 40 MG TABLET 40 MG PO DAILY HIGH BLOOD PRESSURE (Reported) FOR 5 DAYS. TO CHANGE TO 20MG 02/05/17 Hydralazine HCl 50 MG TABLET 1 TAB PO BID HIGH BLOOD PRESSURE Levothyroxine Sodium (Levo-T) 25 MCG TABLET 1 TAB PO DAILY AC THYROID ( Reported) Magnesium Oxide 400 MG TABLET 1 TAB PO DAILY low magnesium Metoprolol Succ XL (Toprol XL) 25 MG TAB 1 TAB PO DAILY Heart (Reported) Pregabalin (Lyrica) 25 MG CAPSULE 1 CAP PO TID NEUROPATHY (Reported) Simvastatin (Simvastatin*) 40 MG TABLET 1 TAB PO QPM CHOLESTEROL (Reported) Sodium Bicarbonate 650 MG TABLET 2 TAB PO BID SUPPLEMENT (Reported) Current Medications: Current Medications Sig/Miriam Start time Last Medication Dose Route Stop Time Status Admin Acetaminophen 650 MG Q6-PRN PRN 02/04 1200 AC PO Acetaminophen 975 MG ONCE ONE 02/04 1045 DC 02/04 PO 02/04 1046 1045 Acetaminophen 0 .STK-MED ONE 02/04 1016 DC PO Aspirin 81 MG DAILY 02/05 1000 AC PO Atorvastatin Calcium 20 MG 1700 02/04 1700 AC PO Atropine Sulfate 1 MG ONE ONE 02/04 0845 DC 02/04 IV 02/04 0846 0850 Atropine Sulfate 0 .STK-MED ONE 02/04 0824 DC .ROUTE Carbidopa/Levodopa 2 TAB TID 02/04 1600 AC PO Heparin Sodium 5,000 UNIT Q8 02/04 1400 AC (Porcine) SC Hydralazine HCl 50 MG BID 02/04 2200 AC PO Levothyroxine Sodium 0.025 MG DAILY AC 02/05 0700 AC PO Pregabalin 50 MG DAILY 02/05 1000 AC PO Sodium Bicarbonate 1,300 MG BID 02/04 2200 AC PO Sodium Chloride 1,000 ML .Q6H40M 02/04 1015 DC IV Review of Systems Review of Systems: Unable to give ROS given inability to communicate Past History Travel History Traveled to [place] past 21 day No Medical History Blood Transfusion Hx: No Neurological: Parkinson's disease EENT: [facility] Cardiovascular: CAD, hypertension, hyperlipidemia Respiratory: NONE Gastrointestinal: diverticulosis ATROPHIC GASTRITIS Hepatic: NONE Renal: chronic kidney disease Musculoskeletal: gout, osteoarthritis Psychiatric: NONE Endocrine: NONE Blood Disorders: NONE Cancer(s): NONE Other Medical Hx: paget disease Surgical History Surgical History: CABG, knee replacement, RIGHT INGUINAL HERNIA REPAIR Family History Relations & Conditions If Any: Relation not specified for: *No pertinent family history Psychosocial History Where Do You Live? Extended Care Facility Services at Home: Nursing Smoking Status: Former Smoker ETOH Use: denies use Illicit Drug Use: denies illicit drug use Functional Ability ADLs Independent: dressing, eating, toileting, bathing. Ambulation: walker IADLs Independent: telephone. Unknown: shopping, housework, finances, food prep, transportation. Exam & Diagnostic Data Vital Signs and I&O Vital Signs Date Time Temp Pulse Resp B/P B/P Pulse O2 O2 Flow FiO2 Mean Ox Delivery Rate 02/04 1111 97.1 41 18 138/61 100 02/04 0945 35 18 98/60 100 02/04 0756 Room Air 02/04 0753 98.9 41 18 153/66 100 Room Air Intake & Output 02/04 1600 02/04 0400 02/03 1600 02/03 0400 02/02 1600 02/02 0400 Intake Total 0 Output Total 650 Balance -650 Intake, Oral 0 Output, Urine 650 Patient 172 lb Weight Weight Bed scale Measurement Method Physical Exam: Gen - chronically ill appearing, hard of hearing Head - NCAT Eyes - anicteric sclera, EOMI Neck - supple, no LAD CV - bradycardic, no m/r/g Chest - clear anteriorly Abd - soft, nontender, nondistended, BS+ Upper ext - no edema Lower ext - 2+ edema b/l Skin - no rash Neuro - drowsy, will try and respond to voice Results Pertinent Lab Results: Laboratory Tests 02/04 02/04 02/04 02/04 1620 1520 1140 0849 Chemistry Lactic Acid (0.7 - 2.1 mmol/L) 1.1 Troponin I Pending Coagulation PT (9.4 - 12.5 SEC) 10.7 INR (0.90 - 1.17) 1.02 APTT (25 - 37 SEC) 33 Urines Urine Color (YEL,AMB,STR) YEL Urine Clarity (CLEAR) CLEAR Urine pH (5.0 - 8.0) 6.0 Ur Specific [place] (1.001 - 1.035) 1.015 Urine Protein (NEG,<30 MG/DL) 100 H Urine Ketones (NEG) NEG Urine Nitrite (NEG) NEG Urine Bilirubin (NEG) NEG Urine Urobilinogen (0.1 - 1.0 EU/dl) 0.2 Ur Leukocyte Esterase (NEG) NEG Ur Microscopic SEDIMENT EXAMINED Urine RBC (0 - 5 /HPF) 10-15 H Urine WBC (0 - 2 /HPF) RARE Ur Epithelial Cells (NONE,FEW) RARE Urine Bacteria (NEG/NONE) FEW H Urine Mucus (FEW,NONE) RARE Urine Hemoglobin (NEG) TRACE-INTACT H Urine Glucose (N MG/DL) NEG 02/04 0820 Chemistry Sodium (137 - 145 mmol/L) 129 L Potassium (3.5 - 5.1 mmol/L) 5.7 H Chloride (98 - 107 mmol/L) 95 L Carbon Dioxide (22 - 30 mmol/L) 22 Anion Gap (5 - 16) 13 BUN (9 - 20 mg/dL) 111 *H Creatinine (0.7 - 1.2 mg/dL) 4.3 H Estimated GFR (>60 ml/min) 13 L BUN/Creatinine Ratio (7 - 25 %) 25.8 H Glucose (65 - 99 mg/dL) 77 Hemoglobin A1c (4.2 - 5.8 %) Pending Lactic Acid (0.7 - 2.1 mmol/L) 1.5 Calcium (8.4 - 10.2 mg/dL) 6.4 L Phosphorus (2.5 - 4.5 mg/dL) Pending Magnesium (1.6 - 2.3 mg/dL) Pending Total Bilirubin (0.2 - 1.3 mg/dL) 0.4 AST (17 - 59 U/L) 13 L ALT (21 - 72 U/L) 15 L Alkaline Phosphatase (< 127 U/L) 139 H Troponin I (<0.11 ng/ml) 0.02 Vbs-D-Oewulsuwyua Pept (<125 pg/mL) Pending Total Protein (6.3 - 8.2 g/dL) 5.6 L Albumin (3.5 - 5.0 g/dL) 2.9 L Globulin (1.9 - 4.2 gm/dL) 2.7 Albumin/Globulin Ratio (1.1 - 2.2 %) 1.1 TSH (0.270 - 4.200 uIU/mL) 8.890 H Free T4 (0.85 - 1.93 ng/dL) 1.03 Hematology CBC w Diff NO MAN DIFF REQ WBC (4.8 - 10.8 /CUMM) 4.9 RBC (4.70 - 6.10 /CUMM) 2.56 L Hgb (14.0 - 18.0 G/DL) 7.9 L Hct (42 - 52 %) 23.6 L MCV (80.0 - 94.0 FL) 92.1 MCH (27.0 - 31.0 PG) 30.7 RDW (11.5 - 14.5 %) 14.8 H Plt Count (130 - 400 /CUMM) 158 MPV (7.4 - 10.4 FL) 8.6 Gran % (42.2 - 75.2 %) 72.7 Lymphocytes % (20.5 - 51.1 %) 15.2 L Monocytes % (1.7 - 9.3 %) 9.8 H Eosinophils % (0 - 5 %) 1.8 Basophils % (0.0 - 2.0 %) 0.5 Absolute Granulocytes (1.4 - 6.5 /CUMM) 3.6 Absolute Lymphocytes (1.2 - 3.4 /CUMM) 0.7 L Absolute Monocytes (0.10 - 0.60 /CUMM) 0.5 Absolute Eosinophils (0.0 - 0.7 /CUMM) 0.1 Absolute Basophils (0.0 - 0.2 /CUMM) 0 PUBS MCHC (33.0 - 37.0 G/DL) 33.3 Imaging/Other Studies: EXAM TYPE: US - US-RENAL/KIDNEY EXAMINATION: US RETROPERITONEAL COMPLETE (RENAL) CLINICAL INFORMATION: Worsening kidney function. Chronic kidney disease. COMPARISON: Renal ultrasound dated 09/05/2016. MRI scan of the lumbar spine dated 04/01/2009. TECHNIQUE: Real-time imaging of the kidneys and bladder. FINDINGS: RIGHT KIDNEY: 10.3 x 5.2 x 5.2 cm (SAG x AP x TRV). The kidney is normal in size. Renal cortical echogenicity is diffusely mildly increased with cortical thinning noted. No calculi. No hydronephrosis. There are multiple variably sized benign-appearing simple cysts in the right kidney, largest of which is an exophytic lower pole renal cyst, measuring 2.4 x 2.4 x 1.8 cm, previously measuring 2.4 x 2.4 x 1.8 cm (09/05/2016). LEFT KIDNEY: 10.8 x 5.3 x 4.7 cm (SAG x AP x TRV). The kidney is normal in size. Renal cortical echogenicity is diffusely mildly increased with cortical thinning seen. Multiple variably sized benign-appearing simple cysts as seen, largest of which is in the upper pole, partially exophytic, measuring 1.4 x 1.2 x 1.6 cm versus 1.5 x 1.4 x 1.6 cm previously (09/05/2016). A nonobstructing 0.5 x 0.3 x 0.5 cm calcification is seen in the mid left kidney and another 0.5 x 0.3 x 0.3 cm calcification in the lower pole, unchanged. No hydronephrosis. BLADDER: Well-distended and normal. Bilateral ureteral jets are demonstrated. IMPRESSION: 1. Bilateral diffuse cortical thinning and increased echogenicity is seen, consistent with medical renal disease. 2. Multiple bilateral benign-appearing cysts are noted, similar to prior exam. 3. Nonobstructing 0.5 cm calculi are seen in the mid and lower pole of the left kidney, unchanged. Assessment/Plan Assessment/Recommendations Assessment: Stage V CKD - has been progressive over the course of this year. Thought to be secondary to hypertensive nephrosclerosis along with cardiorenal factors. I spoke to the patient's family which included his son Saul and [id number]-tx-nbl Princess at length about end-stage kidney disease. Given her father's comorbidities and current functional status, I recommended against considering her pursuing chronic dialysis as it would not improve his quality of life or given any actual quality time. They seemed to understand and agree. I also recommended discussing CODE STATUS and recommended against full resuscitation measures. SRIKANTH - Cardiorenal factors in the setting of significant bradycardia. Although truthfully, his current renal function seems to just be progressive. Anemia - has been iron deficient in the past. Would recommend rechecking this as he may need some iron but would also dose Epogen 20,000U q2 weeks. MBD - PTH had been high. Would check 25 Vit D and replete if needed. But if phos is <5.5, I would recommend starting on calcitriol 0.25mcg daily as his corrected calcium is low. Edema - Hypoalbuminemic. Has been sensitive to diuretics in the past. To get him completely euvolemic may hasten worsening of his kidney function and may not be worth it given the goals of care. Need to be carefully reinstituted. Recommendations: -Cont GOC discussions - the family said they will try and make a decision in the next day -Low K diet - may be a good candidate for Veltassa chronically as a K binder -Restart lasix once hemodynamics stabilize and monitor labs -Epogen 20,000U q2 weeks -Check ferritin, iron studies -Check 25 Vit D -If phos <5.5, please start Calcitriol 0.25mcg daily Please call [phone] with ?'s
--- NOTE | 2017-02-04 16:41 | RADIOLOGY REPORT ---
EXAMINATION: XR PORTABLE CHEST CLINICAL INFORMATION: An 86-year-old male with CHF. Bradycardia. COMPARISON: Chest radiograph done earlier this morning. TECHNIQUE: Portable frontal view of the chest was obtained. FINDINGS: Persistent stable moderate enlargement of the cardiomediastinal silhouette and superimposed ofww-lk-[id number] pulmonary venous congestion is noted. The findings are consistent with oqmz-zl-[id number] CHF. There is no interstitial, alveolar edema or pleural effusion present. Postop changes of sternotomy are noted. The visualized upper abdomen is unremarkable. IMPRESSION: Vtxk-[id number] CHF. No superimposed definite airspace disease.
--- NOTE | 2017-02-04 18:52 | NUR ---
PT ADMITTED FROM ER THIS AFTERNOON. HE IS LETHARGIC WITH PERIODS OF INCREASED AWARENESS IN WHICH HE CAN CONVERSE. FAMILY PRESENT. MONITOR FIRST DEGREE AV BLOCK AND PACER PADS ARE IN PLACE CONNECTED TO [email or web address]. HIS LEGS ARE RED AND COLD TO TOUCH WITH DOPPLAR PULSES PALPABLE. THEY ARE BOTH EDEMATOUS AND AFTER DISCUSSION WITH ICU RESIDENT, SPANDAGE WAS PLACED UNDER THE ALPS. WOUND TEAM CONSULTED THE PT HAS OPEN AREAS BETWEEN SOME TOES, OPEN AREA POSTERIOR RIGHT THIGH.
--- NOTE | 2017-02-04 19:10 | NUR ---
THE PT IS TOO LETHARGIC TO ATTEMPT PO INTAKE. ICU RESIDENT IS AWARE. WHEN OFFERING MOUTH CARE THE PT WILL DOZE OFF WITH THE SWAB DROPPING FROM HIS MOUTH. FAMILY UPDATED.
--- NOTE | 2017-02-04 21:04 | RADIOLOGY REPORT ---
EXAMINATION: XR CHEST PORTABLE CLINICAL INFORMATION: Nasogastric tube placement. COMPARISON: Multiple priors, most recent chest radiograph dated 02/04/2017 at 4:20 PM. TECHNIQUE: Portable frontal view of the chest was obtained. FINDINGS: There has been interval placement of a nasogastric tube with its tip terminating below the left hemidiaphragm. Patchy bilateral airspace opacities are unchanged when compared to the prior examination. There is no pleural effusion or pneumothorax. The cardiomediastinal silhouette is again noted to be enlarged. IMPRESSION: 1. Interval placement of a nasogastric tube with its tip terminating below the left hemidiaphragm. 2. Unchanged patchy airspace opacities. 3. Stable cardiomegaly.
--- NOTE | 2017-02-04 21:39 | Admission Certification ---
Admission Certification Certification Statement - As attending physician, I certify that at the time of - admission, based on clinical presentation, severity of - symptoms, need for further diagnostic testing and - therapeutic interventions, and risk of adverse outcomes - without in-hospital treatment, in my clinical assessment, - this patient requires an acute hospital stay for a minimum - of two nights or longer. I have also considered psychsocial - factors such as support system, advanced age, financial - issues, cognitive issues, and failed out-patient treatments, - past re-admission history, safety of patient, and lack of - compliance as applicable. Specific rationale supporting this admission is: The patient presented in the ED with symptomatic bradycardia requiring atropine, acute on chronic renal failure, acute on chronic anemia, hyperkalemia. Needs ICU level of observation, Cardiology & Nephrology consults. External pacer, hold beta blockers.
[2017-02-05] VITALS: BP 100/48
--- NOTE | 2017-02-05 01:15 | NUR ---
LABS REPORTED TO MD. DEXTROSE/INSULIN/CALCIUM WELL SPS GIVEN FOR K+ OF 6.2. PRIOR TO ADMINISTRATION GLUCOSE 70. DR. HERNANDEZ AWARE AND INSTRUCTED TO GIVE MEDS. GLUCOSE CHECKED 1 HOUR LATER 94. PT ALERT AND CONFUSED. C/O PAIN TO THROAT SECONDARY TO NGT AND IS AGITATED BECAUSE HE WOULD LIKE TO EAT. DR. MCCABE NOTIFIED
--- NOTE | 2017-02-05 03:30 | NUR ---
PT BP 80/40 MANUALLY, PT UNRESPONSIVE. BLOOD SUGAR LESS THAN 50. LABS DRAWN AND AMP OF D50 GIVEN. WILL CONTINUE TO MONITOR. PT HAS PRODUCTIVE COUGH- SPUTUM WHITE AND FROTHY.
[2017-02-05 03:46] LABS: ABSOLUTE BASOPHIL COUNT 0 /CUMM (0.0-0.2); ABSOLUTE EOSINOPHIL COUNT 0 /CUMM (0.0-0.7); ABSOLUTE GRANULOCYTE CT 4.3 /CUMM (1.4-6.5); ABSOLUTE MONOCYTE COUNT 0.6 /CUMM (0.10-0.60); BASOPHIL % 0.2 % (0.0-2.0); EOSINOPHIL % 0.7 % (0-5); GRANULOCYTE % 73.4 % (42.2-75.2); HEMATOCRIT 20.2 % (42-52); MEAN CORPUSCULAR HGB 30.2 PG (27.0-31.0); MEAN CORPUSCULAR HGB CONC 32.6 G/DL (33.0-37.0); MEAN CORPUSCULAR VOLUME 92.7 FL (80.0-94.0); MEAN PLATELET VOLUME 8.1 FL (7.4-10.4); PLATELET COUNT 141 /CUMM (130-400); RBC DISTRIBUTION WIDTH 14.8 % (11.5-14.5); RED BLOOD CELL CT 2.18 /CUMM (4.70-6.10); WHITE BLOOD CELL COUNT 5.9 /CUMM (4.8-10.8)
--- NOTE | 2017-02-05 04:30 | NUR ---
PER MD MONITOR BLOOD SUGARS Q1 HOUR. REDRAWN LABS AT 8 AM F/U LOW H/H THAT WAS PREVIOUSLY REPORTED. PT MORE AWAKE AT THIS TIME
--- NOTE | 2017-02-05 07:24 | RADIOLOGY REPORT ---
EXAMINATION:\H\ \N\XR CHEST CLINICAL INFORMATION: Follow-up pulmonary edema COMPARISON: Previous chest x-rays most recent from yesterday TECHNIQUE: Frontal view of the chest was obtained. FINDINGS: The cardiac silhouette is enlarged but stable. Post-CABG changes are seen. Endotracheal tube tip is 3.3 cm above the wilian. The tip of the nasogastric tube is not well seen. The lung volumes are low. There is patchy bilateral airspace disease. This appears slightly increased compared to yesterday's exam. Some of these changes may be due to difference in film technique. There is no pleural effusion or pneumothorax. There is evidence of previous surgery to the left shoulder. IMPRESSION: Satisfactory position of ET tube. Nasogastric tube tip is not well seen. Low lung volumes. Slight interval increase in bilateral airspace disease from yesterday's exam.
[2017-02-05 08:00] VITALS: BP 100/68
--- NOTE | 2017-02-05 08:08 | PN- Resident CRCU ---
See Addendum Subjective HPI/CRCU Issues: Asymptomatic bradycardia Acute blood loss anemia 24 Hour Events: Overnight received IV dextrose with insulin and calcium gluconate for hyperkalemia, however blood sugars remained on the lower side. Urine output of 660 mL, input 730ml. Objective Vital Signs & I&O Last 8 Hrs of Vitals and I&O: Afebrile with heart rate 38-56, blood pressure 78/40 mmHg to 110/59 mmHg, currently on room air Exam General Appearance: well developed/nourished, alert, awake, mild distress Head: atraumatic, normal appearance Ears, Nose, Throat: normal pharynx, normal ENT inspection Neck: normal inspection Respiratory: normal breath sounds, chest non-tender, no respiratory distress Cardiovascular: regular rate/rhythm, murmur, normal peripheral pulses, bradycardia Gastrointestinal: normal bowel sounds, soft, non-tender Extremities: pedal edema, swelling, tenderness Cranial Nerves: normal hearing, normal speech, PERRL Skin: intact, normal color Skin Temp/Moisture Exam: Warm/Dry IV Drips IV Drips: D10 @20ml/hr Nutrition Nutrition: NPO, D10 started @20ml/hr Current Medications: Current Medications Sig/Miriam Start time Last Medication Dose Route Stop Time Status Admin Acetaminophen 650 MG Q6-PRN PRN 02/04 1200 AC PO Aspirin 81 MG DAILY 02/05 1000 AC PO Atorvastatin Calcium 20 MG 1700 02/04 1700 AC 02/05 PO 1604 Calcium Gluconate 1 GM ONCE ONE 02/04 2330 DC 02/05 Sodium Chloride 100 ML IV 02/05 0029 0004 Carbidopa/Levodopa 2 TAB TID 02/04 1600 AC 02/05 PO 1604 Dextrose 25 GM ONCE ONE 02/05 1115 DC 02/05 IV 02/05 1116 1115 Dextrose 25 GM ONCE ONE 02/05 0615 DC 02/05 IV 02/05 0616 0620 Dextrose 25 GM ONCE ONE 02/05 0330 DC 02/05 IV 02/05 0331 0335 Dextrose 25 GM ONCE ONE 02/04 2345 DC 02/05 IV 02/04 2346 0008 Dextrose/Water 1,000 ML .Q24H 02/05 1715 UNVr 02/05 IV 02/06 1714 1718 Epoetin Luca 20,000 UNITS Q 2 WEEKS 02/18 1000 CAN IV Epoetin Luca 20,000 U Q 2 WEEKS 02/04 1830 AC 02/04 SC 2304 Heparin Sodium 5,000 UNIT Q8 02/04 1400 AC 02/04 (Porcine) SC 2304 Hydralazine HCl 50 MG BID 02/04 2200 CAN PO Insulin Human Regular 10 UNITS ONCE ONE 02/04 2345 CAN SC 02/04 2346 Insulin Human Regular 10 UNITS ONCE ONE 02/04 2345 DC 02/05 IV 02/04 2346 0008 Levothyroxine Sodium 0.025 MG DAILY AC 02/05 0700 AC 02/05 PO 0620 Phenol 2 SPRAY Q4 HRS NEEDED PRN 02/04 2330 AC 02/05 EXT 0004 Pregabalin 50 MG DAILY 02/05 1000 AC 02/05 PO 1105 Sodium Bicarbonate 1,300 MG BID 02/040 AC 02/05 PO 1058 Sodium Polystyrene 60 ML ONCE ONE 02/04 2345 DC 02/05 Sulfonate PO 02/04 2346 0007 Antibiotics Antibiotics? none CXR Findings: IMPRESSION: Satisfactory position of ET tube. Nasogastric tube tip is not well seen. Low lung volumes. Slight interval increase in bilateral airspace disease from yesterday's exam Impression/Plan Impression/Problem List Impression: The patient is an 86 yo male with h/o Parkinson's Disease, HTN, hypothyroid, CAD (s/p CABG), and chronic renal failure (stage IV-nephrosclerosis) who is a patient at [facility] who was sent to the ED today when he had an observed slide off of his wheelchair to the floor. He was found to have a HR of 40. No syncope described. He denied any chest pain or dyspnea. In the ED he received atropine with an increase in HR to 50. Labs showed worsening of his renal failure and chronic anemia. Admitted to ICU Bradycardia- sinus bradycardia on EKG. Was discovered after he slid to floor out of wheelchair today at [facility]. No chest pain, dyspnea. Received some atropine in ED with increase in rate. Plan: Admit to ICU- close cardiac monitoring. Atropine at bedside and external pacer attached. Cardiology consult Dr. Kumar. Hold beta misa at present. As HR remains in 36-56 overnight --- needs pacemaker eventually. #Acute on Chronic Renal Failure- has had progressive renal failure this year. Cr now 4.3 was 3.5 in 5/17. May be some role in renal hypoperfusion due to low HR. Family had been considering option of dialysis with prior discussions with nephrology. P: Nephrology consult - Dr. Waldrop. Hold furosemide at present- follow BEP Avoid nephrotoxins. Family discussion regarding potential need for dialysis -- holding off according to family Acute on Chronic Anemia * H&H dropped from 7.9/23 at admission to 6.6/20 with repeat labs showing 6.4/ 19.2 * Guiac negative --need further evaluation regarding source of bleed. * Type and cross matched, conset obtained by calling daughter * Transfused 1 unit PRBC * Repeat CBC in the evening Hb improved to 8. Parkinson's disease * Continue [employer] Carbidopa/Levodopa 2mg TID Hypothyroid- TSH minimally elevated. * Continue Levothyroxine 25mcg daily for now * TSH elevated to 7 with free T4 and T3 within normal limits. 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 Plan: Watch BP - hold metoprolol due to bradycardia. HLD- on Simvastatin. Plan: Continue Simvastatin. Advanced Directives- Patient code status changed to on previous day after discussing goals of care to DNR/DNI. Problem List: 1. Chronic anemia 2. Leg pain 3. Accelerated hypertension 4. CRI (chronic renal insufficiency) 5. CHF exacerbation 6. Sinus bradycardia 7. Hyperkalemia Pain Ratin Pain Location: lower extremities Pain Plan: Tylenol Pregabalin Tomorrow's Labs & Rationales: CBC to monitor H&H ICU bundle to monitor renal function and electrolytes Plan DVT/Prophylaxis: pharmacological
[2017-02-05 09:15] LABS: ABSOLUTE BASOPHIL COUNT 0 /CUMM (0.0-0.2); ABSOLUTE EOSINOPHIL COUNT 0 /CUMM (0.0-0.7); ABSOLUTE MONOCYTE COUNT 0.3 /CUMM (0.10-0.60); RED BLOOD CELL CT 2.05 /CUMM (4.70-6.10)
--- NOTE | 2017-02-05 09:17 | NUR ---
ECHO AT BEDSIDE. DAUGHTER AT BEDSIDE. POC/ UPDATES PROVIDED.
[2017-02-05 09:27] LABS: ABSOLUTE GRANULOCYTE CT 3.8 /CUMM (1.4-6.5); ABSOLUTE LYMPH COUNT 0.4 /CUMM (1.2-3.4); BASOPHIL % 0.3 % (0.0-2.0); EOSINOPHIL % 0.3 % (0-5); GRANULOCYTE % 82.4 % (42.2-75.2); MEAN CORPUSCULAR HGB 31.1 PG (27.0-31.0); MEAN CORPUSCULAR HGB CONC 33.2 G/DL (33.0-37.0); MEAN CORPUSCULAR VOLUME 93.6 FL (80.0-94.0); PLATELET COUNT 119 /CUMM (130-400); RBC DISTRIBUTION WIDTH 14.9 % (11.5-14.5); WHITE BLOOD CELL COUNT 4.6 /CUMM (4.8-10.8)
[2017-02-05 09:35] LABS: HEMATOCRIT 19.2 % (42-52)
--- NOTE | 2017-02-05 12:06 | NUR ---
AM LABS DRAWN. H/H 6.4/19.2. [facility] CALLED FOR COSENT FOR TRANSFUSION. 1U PRBC ORDERED AND OBTAINED. TRANSFUSION INITIATED. PT TOLERATING WELL. SWALLOW EVALUATION ORDER PLACED. PT NPO UNTIL EVALUATION. NGT INSITU AT 60CM, UTULIZING FOR PO MEDS. ASPIRIN HELD.
--- NOTE | 2017-02-05 12:14 | NUR ---
PT ON Q 1 HR BLOOD SUGAR CHECKS; [id number], DR BATES NOTIFIED. D50 AMP ORDERED AND GIVEN. REPEAT BLOOD SUGAR 172. WILL CONTINUE TO MONITOR Q 1 HR.
[2017-02-05 16:00] VITALS: BP 129/50
[2017-02-05 17:24] LABS: ABSOLUTE BASOPHIL COUNT 0 /CUMM (0.0-0.2); ABSOLUTE EOSINOPHIL COUNT 0 /CUMM (0.0-0.7); ABSOLUTE GRANULOCYTE CT 3.1 /CUMM (1.4-6.5); ABSOLUTE LYMPH COUNT 0.6 /CUMM (1.2-3.4); ABSOLUTE MONOCYTE COUNT 0.4 /CUMM (0.10-0.60); BASOPHIL % 0.3 % (0.0-2.0); EOSINOPHIL % 1.1 % (0-5); GRANULOCYTE % 73.9 % (42.2-75.2); MEAN CORPUSCULAR HGB 30.1 PG (27.0-31.0); MEAN CORPUSCULAR HGB CONC 33.1 G/DL (33.0-37.0); MEAN CORPUSCULAR VOLUME 90.8 FL (80.0-94.0); MEAN PLATELET VOLUME 9.2 FL (7.4-10.4); PLATELET COUNT 137 /CUMM (130-400); RBC DISTRIBUTION WIDTH 15.7 % (11.5-14.5); WHITE BLOOD CELL COUNT 4.2 /CUMM (4.8-10.8)
--- NOTE | 2017-02-05 17:28 | NUR ---
PT [address] BATES NOTIFIED. PT STARTED ON D10 AT 20ML PER HR. REPEAT ACCUCHECK AT 1800.
[2017-02-05 17:48] LABS: RED BLOOD CELL CT 2.64 /CUMM (4.70-6.10)
--- NOTE | 2017-02-05 18:14 | PN- Cardiology ---
Subjective Subjective: Heart rate remains on slow side. Change in CODE STATUS noted. Objective Vital Signs and I&Os Vital Signs Date Time Temp Pulse Resp B/P B/P Pulse O2 O2 Flow FiO2 Mean Ox Delivery Rate 02/05 1600 94 Room Air 02/05 1600 96.7 47 16 129/50 94 Room Air 02/05 1200 95 Room Air 02/05 0800 98 Room Air 02/05 0800 96.0 42 16 100/68 93 Room Air 02/05 0400 94 Room Air 02/05 0000 95 Room Air 02/05 0000 96.6 44 24 100/48 95 Room Air 02/04 2000 95 Room Air Intake & Output 02/05 1600 02/05 0800 02/05 0000 02/04 1600 02/04 0800 02/04 0000 Intake Total 430 630 100 0 Output Total 180 300 830 Balance 430 450 -200 -830 Intake, Blood 350 Product Intake, IV 80 390 Intake, Oral 0 0 Intake, Other 240 100 Number 0 Bowel Movements Output, Urine 180 300 830 Patient 172 lb Weight Weight Bed scale Measurement Method Physical Exam: Pale-appearing elderly male in no acute distress with nasal oxygen in place. HEENT: Normocephalic, atraumatic, EOMI, slightly dry mucous membranes. Neck: No JVD, no bruits. Lungs: Few crackles at the bases. Heart: S1, S2 with grade 1-2/6 systolic ejection type murmur best heard near the base. No gallop or rub appreciated. PMI fifth ICS at MCL. Abdomen: Soft, nontender, positive bowel sounds. Extremities: Legs wrapped and 2+ bilateral lower extremity edema. Current Medications: Current Medications Sig/Miriam Start time Last Medication Dose Route Stop Time Status Admin Acetaminophen 650 MG Q6-PRN PRN 02/04 1200 AC PO Aspirin 81 MG DAILY 02/05 1000 AC PO Atorvastatin Calcium 20 MG 1700 02/04 1700 AC 02/05 PO 1604 Calcium Gluconate 1 GM ONCE ONE 02/04 2330 DC 02/05 Sodium Chloride 100 ML IV 02/05 0029 0004 Carbidopa/Levodopa 2 TAB TID 02/04 1600 AC 02/05 PO 1604 Dextrose 25 GM ONCE ONE 02/05 1115 DC 02/05 IV 02/05 1116 1115 Dextrose 25 GM ONCE ONE 02/05 0615 DC 02/05 IV 02/05 0616 0620 Dextrose 25 GM ONCE ONE 02/05 0330 DC 02/05 IV 02/05 0331 0335 Dextrose 25 GM ONCE ONE 02/04 2345 DC 02/05 IV 02/04 2346 0008 Dextrose/Water 1,000 ML .Q24H 02/05 1715 AC 02/05 IV 02/06 1714 1718 Epoetin Luca 20,000 UNITS Q 2 WEEKS 02/18 1000 CAN IV Epoetin Luca 20,000 U Q 2 WEEKS 02/04 1830 AC 02/04 SC 2304 Heparin Sodium 5,000 UNIT Q8 02/04 1400 AC 02/04 (Porcine) SC 2304 Insulin Human Regular 10 UNITS ONCE ONE 02/04 2345 CAN SC 02/04 2346 Insulin Human Regular 10 UNITS ONCE ONE 02/04 2345 DC 02/05 IV 02/04 2346 0008 Levothyroxine Sodium 0.025 MG DAILY AC 02/05 0700 AC 02/05 PO 0620 Phenol 2 SPRAY Q4 HRS NEEDED PRN 02/04 2330 02/05 EXT 0004 Pregabalin 50 MG DAILY 02/05 1000 AC 02/05 PO 1105 Sodium Bicarbonate 1,300 MG BID 02/04 2200 AC 02/05 PO 1058 Sodium Polystyrene 60 ML ONCE ONE 02/045 DC 02/05 Sulfonate PO 02/04 2346 0007 Results Last 48 Hrs of Labs/Mics: Laboratory Tests 02/05/17 1620: Haptoglobin Pending 02/05/17 1620: Anion Gap 13, Estimated GFR 13 L, Glucose 71, Calcium 6.0 L, Phosphorus 8.5 H , Magnesium 3.0 H, Total Bilirubin 0.6, AST 16 L, ALT 17 L, Lactate Dehydrogenase 677 H, Albumin 2.7 L, Vitamin B12 Pending, Folate Pending, CBC w Diff NO MAN DIFF REQ, RBC 2.64 L, MCV 90.8, MCH 30.1, RDW 15.7 H, MPV 9.2, Gran % 73.9, Lymphocytes % 14.4 L, Monocytes % 10.3 H, Eosinophils % 1.1, Basophils % 0.3, Absolute Granulocytes 3.1, Absolute Lymphocytes 0.6 L, Absolute Monocytes 0.4, Absolute Eosinophils 0, Absolute Basophils 0, PUBS MCHC 33.1 02/05/17 0805: Anion Gap 14, Estimated GFR 13 L, BUN/Creatinine Ratio 26.0 H, Glucose 93, Calcium 6.0 L, Total Bilirubin 0.3, AST 12 L, ALT 19 L, Alkaline Phosphatase 99, Total Protein 4.7 L, Albumin 2.5 L, Globulin 2.2, Albumin/Globulin Ratio 1.1, CBC w Diff NO MAN DIFF REQ, RBC 2.05 L, MCV 93.6, MCH 31.1 H, RDW 14.9 H , MPV 9.0, Gran % 82.4 H, Lymphocytes % 9.8 L, Monocytes % 7.2, Eosinophils % 0.3, Basophils % 0.3, Absolute Granulocytes 3.8, Absolute Lymphocytes 0.4 L, Absolute Monocytes 0.3, Absolute Eosinophils 0, Absolute Basophils 0, PUBS MCHC 33.2 02/05/17 0500: Thyroxine (T4) Cancelled 02/05/17 0320: Anion Gap 14, Estimated GFR 13 L, BUN/Creatinine Ratio 24.5, Glucose 35 *L, Calcium 6.3 L, Phosphorus 8.2 H, Magnesium 3.1 H, Total Bilirubin 0.3, AST 12 L, ALT 15 L, Alkaline Phosphatase 104, Total Protein 5.0 L, Albumin 2.5 L, Globulin 2.5, Albumin/Globulin Ratio 1.0 L, TSH 7.550 H, Free T4 1.00, Thyroxine (T4) 4.9, CBC w Diff NO MAN DIFF REQ, RBC 2.18 L, MCV 92.7, MCH 30.2, RDW 14.8 H, MPV 8.1, Gran % 73.4, Lymphocytes % 16.1 L, Monocytes % 9.6 H, Eosinophils % 0.7, Basophils % 0.2, Absolute Granulocytes 4.3, Absolute Lymphocytes 1.0 L, Absolute Monocytes 0.6, Absolute Eosinophils 0, Absolute Basophils 0, PUBS MCHC 32.6 L 02/04/17 2225: Anion Gap 14, Estimated GFR 14 L, BUN/Creatinine Ratio 27.3 H, Troponin I 0.02 02/04/17 1620: Iron 79, TIBC 276, Ferritin 217.0, Troponin I < 0.01 02/04/17 1520: Lactic Acid 1.1 02/04/17 1140: Urine Color YEL, Urine Clarity CLEAR, Urine pH 6.0, Ur Specific [place] 1.015, Urine Protein 100 H, Urine Ketones NEG, Urine Nitrite NEG, Urine Bilirubin NEG, Urine Urobilinogen 0.2, Ur Leukocyte Esterase NEG, Ur Microscopic SEDIMENT EXAMINED, Urine RBC 10-15 H, Urine WBC RARE, Ur Epithelial Cells RARE, Urine Bacteria FEW H, Urine Mucus RARE, Urine Hemoglobin TRACE-INTACT H, Urine Glucose NEG 02/04/17 0849: PT 10.7, INR 1.02, APTT 33 02/04/17 0820: Anion Gap 13, Estimated GFR 13 L, BUN/Creatinine Ratio 25.8 H, Glucose 77, Hemoglobin A1c Pending, Lactic Acid 1.5, Calcium 6.4 L, Phosphorus 8.3 H, Magnesium 3.0 H, Total Bilirubin 0.4, AST 13 L, ALT 15 L, Alkaline Phosphatase 139 H, Troponin I 0.02, Qin-T-Gqtcmgusavs Pept 91541 H, Total Protein 5.6 L, Albumin 2.9 L, Globulin 2.7, Albumin/Globulin Ratio 1.1, 25-OH Vitamin D Total 13.6 L, TSH 8.890 H, Free T4 1.03, CBC w Diff NO MAN DIFF REQ, RBC 2.56 L, MCV 92.1, MCH 30.7, RDW 14.8 H, MPV 8.6, Gran % 72.7, Lymphocytes % 15.2 L, Monocytes % 9.8 H, Eosinophils % 1.8, Basophils % 0.5, Absolute Granulocytes 3.6, Absolute Lymphocytes 0.7 L, Absolute Monocytes 0.5, Absolute Eosinophils 0.1, Absolute Basophils 0, PUBS MCHC 33.3 Recent Imaging Studies: CXR (02/05/2017): Satisfactory position of ET tube. Nasogastric tube tip is not well seen. Low lung volumes. Slight interval increase in bilateral airspace disease from yesterday's exam. Assessment/Plan Assessment/Plan [id number]/ history of OA, Paget's dz, Parkinson's dz, hypothyroidism, remote tob use, mild pul HTN, HTN, CKD, anemia, HLD, gout, CAD s/p remote CABG, mild- moderate , mild LVH w/ stage 1 diastolic dysfunction, 1st degree AVB, RBBB, recently adm (12/10-12/13/2016) for deteriorating fx status, poorly controlled HTN, SRIKANTH on CKD, ? volume overload vs HFpEF, etc. who presented from ECF after a "slide" from his wheelchair to floor w/o injury and an assessment that revealed a HR in the 40 bpm range on BB Rx (metoprolol ER 25 mg daily). Recommendations: * In light of change in CODE STATUS need to address the family's wishes in regard to permanent pacemaker implantation if his sinus bradycardia persists. * Suspect the decision will be made to not proceed with permanent pacemaker implantation, given Mr. Castro's multiple comorbidities, advanced age, etc. * Follow-up on nephrology recommendations, including restarting diuretic therapy with improvement and denies, Epogen, etc. * Continue DVT prophylaxis. Continue telemetry? Not applicable (ICU)
--- NOTE | 2017-02-05 18:30 | NUR ---
1800 GLUCOSE = 70, DR PANTOJA NOTIFIED. D10 INCREASED TO 40ML/HR. WILL REPEAT X 1 HOUR.
--- NOTE | 2017-02-05 18:31 | NUR ---
K LEVEL 5.7, SPS GIVEN X 1 VIA NGT.
--- NOTE | 2017-02-05 19:34 | ECHOCARDIOGRAM REPORT ---
SHARONDA AQUINO Age: 86 : 1930 Gender: M Exam Date: 02/05/2017 08:26 Exam Location: [facility] Ht (in): 66 Wt (lb): 171 BSA: 1.92 BP: 100 / 48 Ordering Physician: MORRO SELF MD Referring Physician: Talha Rausch MD Technologist: Suha Qiu [facility] Room Number: 110 Indications: PRESYNCOPE/SYNCOPE Rhythm: Sinus Technical Quality: fair FINDINGS Left Ventricle Normal size left ventricle. Left ventricular wall thickness mildly increased. Normal left ventricular ejection fraction estimated at 60-65%. Abnormal relaxation filling pattern of the left ventricle for age (stage 1 diastolic dysfunction). Right Ventricle Normal right ventricular size and function. Prominent moderator band in right ventricle (normal variant). Right Atrium Mild right atrial dilatation. Left Atrium Moderate left atrial dilatation. Mitral Valve Mild mitral annular calcification. Mild mitral regurgitation. Aortic Valve Diffuse thickening of the aortic valve cusps with reduced excursion. Moderate aortic stenosis. Tricuspid Valve Tricuspid valve is normal in structure and function. Moderate-to- severe tricuspid regurgitation. Right ventricular systolic pressure estimated to be elevated at 55 mmHg. Pulmonic Valve Pulmonic valve not well visualized, grossly normal. Pericardium No pericardial effusion. Great Vessels Normal size aortic root. CONCLUSIONS Normal left and right ventricular systolic function. Mild Left ventricular hypertrophy. Moderate Aortic stenosis. Moderate Pulmonary hypertension. Type 1 Diastolic LV dysfunction. Talha Rausch M.D. (Electronically Signed) Final Date: 05 February 2017 19:34 MEASUREMENTS (Male / Female) Normal Values 2D ECHO LV Diastolic Diameter PLAX 4.0 cm 4.2 - 5.9 / 3.9 - 5.3 cm LV Systolic Diameter PLAX 2.5 cm 2.1 - 4.0 cm LV Fractional Shortening PLAX 37.5 % 25 - 46 % LV Ejection Fraction 2D Teich 68.1 % IVS Diastolic Thickness 1.4 cm LVPW Diastolic Thickness 1.4 cm LV Relative Wall Thickness 0.7 RV Internal Dim ED PLAX 3.4 cm 1.9 - 3.8 cm LVOT Diameter 2.0 cm Aortic Root Diameter 3.1 cm LA Systolic Diameter LX 5.1 cm 3.0 - 4.0 / 2.7 - 3.8 cm LA Volume 48.0 cm 18 - 58 / 22 - 52 cm Ascending Aorta Diameter 3.3 cm DOPPLER AV Peak Velocity 251.0 cm/s AV Peak Gradient 25.2 mmHg AV Mean Velocity 162.0 cm/s AV Mean Gradient 13.0 mmHg AV Velocity Time Integral 67.2 cm LVOT Peak Velocity 94.4 cm/s LVOT Peak Gradient 3.6 mmHg LVOT Mean Velocity 63.6 cm/s LVOT Mean Gradient 2.0 mmHg LVOT Velocity Time Integral 30.9 cm LVOT Stroke Volume 97.1 cm AV Area Cont Eq vti 1.4 cm AV Area Cont Eq pk 1.2 cm MV Peak Velocity 114.5 cm/s MV Peak Gradient 5.2 mmHg MV Mean Velocity 60.1 cm/s MV Mean Gradient 2.0 mmHg Mitral E Point Velocity 67.1 cm/s Mitral A Point Velocity 105.0 cm/s Mitral E to A Ratio 0.6 MV PHT Velocity 84.2 cm/s MV Deceleration [place] 173.0 cm/s MV Pressure Half Time 149.0 ms MV Area PHT 1.5 cm MV Deceleration Time 683.0 ms TR Peak Velocity 345.0 cm/s TR Peak Gradient 47.6 mmHg Right Atrial Pressure 5.0 mmHg Pulmonary Artery Systolic Pressu 52.6 mmHg Right Ventricular Systolic Press 52.6 mmHg PV Peak Velocity 167.0 cm/s PV Peak Gradient 11.2 mmHg PV Mean Velocity 97.9 cm/s PV Mean Gradient 5.0 mmHg PV Velocity Time Integral 42.1 cm LV E' Lateral Velocity 7.5 cm/s Mitral E to LV E' Lateral Ratio 8.9 LV E' Septal Velocity 5.5 cm/s Mitral E to LV E' Septal Ratio 12.3
[2017-02-06] VITALS: BP 116/54
[2017-02-06 04:36] LABS: ABSOLUTE BASOPHIL COUNT 0 /CUMM (0.0-0.2); ABSOLUTE EOSINOPHIL COUNT 0 /CUMM (0.0-0.7); ABSOLUTE GRANULOCYTE CT 2.9 /CUMM (1.4-6.5); ABSOLUTE LYMPH COUNT 0.5 /CUMM (1.2-3.4); ABSOLUTE MONOCYTE COUNT 0.4 /CUMM (0.10-0.60); BASOPHIL % 0.3 % (0.0-2.0); EOSINOPHIL % 0.7 % (0-5); GRANULOCYTE % 76.6 % (42.2-75.2); HEMATOCRIT 22.9 % (42-52); MEAN CORPUSCULAR HGB 30.2 PG (27.0-31.0); MEAN CORPUSCULAR HGB CONC 33.3 G/DL (33.0-37.0); MEAN CORPUSCULAR VOLUME 90.8 FL (80.0-94.0); PLATELET COUNT 122 /CUMM (130-400); RBC DISTRIBUTION WIDTH 15.9 % (11.5-14.5); RED BLOOD CELL CT 2.53 /CUMM (4.70-6.10); WHITE BLOOD CELL COUNT 3.8 /CUMM (4.8-10.8)
--- NOTE | 2017-02-06 07:48 | PN- Resident CRCU ---
See Addendum Subjective HPI/CRCU Issues: Afebrile, hemodynamically stable, saturating upper 90s on room air. Patient is awake, alert but not oriented. He looks relaxed and comfortable. No acute overnight events were reported. Telemetry showed low level sinus bradycardia with no heart block. Objective Vital Signs & I&O Last 8 Hrs of Vitals and I&O: Vital Signs Date Time Temp Pulse Resp B/P B/P Pulse O2 O2 Flow FiO2 Mean Ox Delivery Rate 02/06 0800 98 Room Air 02/06 0800 96.3 58 15 140/90 98 Room Air 02/06 0421 96 Room Air 02/06 0000 96 Room Air 02/06 0000 97.0 50 16 116/54 96 Room Air 02/05 2015 99 Room Air 02/05 1600 94 Room Air 02/05 1600 96.7 47 16 129/50 94 Room Air Intake & Output 02/06 1600 02/06 0800 02/06 0000 Intake Total 352 283 Output Total 390 310 Balance -38 -27 Intake, IV 292 183 Intake, Other 60 100 Number 1 1 Bowel Movements Output, Urine 390 310 Exam General Appearance: well developed/nourished, no apparent distress, alert, awake , not oriented , NG tube Head: atraumatic, normal appearance Respiratory: scattered rhonchi and basal crackles Cardiovascular: regular rate/rhythm, 1/6 systolic murmur best heard over the apex Gastrointestinal: normal bowel sounds, soft, non-tender Extremities: edema over LE bl Current Medications: Current Medications Sig/Miriam Start time Last Medication Dose Route Stop Time Status Admin Acetaminophen 650 MG Q6-PRN PRN 02/04 1200 AC PO Aspirin 81 MG DAILY 02/05 1000 AC PO Atorvastatin Calcium 20 MG 1700 02/04 1700 AC 02/05 PO 1604 Calcium Gluconate 1 GM ONCE ONE 02/06 0930 DC 02/06 Sodium Chloride 100 ML IV 02/06 1029 1000 Carbidopa/Levodopa 2 TAB TID 02/04 1600 AC 02/06 PO 0954 Dextrose/Water 1,000 ML .Q24H 02/05 1715 AC 02/05 IV 02/06 1714 1718 Epoetin Luca 20,000 U Q 2 WEEKS 02/04 1830 AC 02/04 SC 2304 Heparin Sodium 5,000 UNIT Q8 02/04 1400 AC 02/04 (Porcine) SC 2304 Levothyroxine Sodium 0.025 MG DAILY AC 02/05 0700 AC 02/06 PO 0619 Phenol 2 SPRAY Q4 HRS NEEDED PRN 02/04 2330 AC 02/05 EXT 0004 Pregabalin 50 MG DAILY 02/05 1000 AC 02/06 PO 0954 Sodium Bicarbonate 1,300 MG BID 02/04 2200 AC 02/06 PO 0954 Sodium Polystyrene 60 ML ONCE ONE 02/05 1930 DC 02/05 Sulfonate PO 02/05 1931 1830 Sodium Polystyrene 60 ML ONCE ONE 02/05 1830 CAN Sulfonate DE 02/05 1831 Impression/Plan Impression/Problem List Impression: 86 yo male with h/o Parkinson's Disease, HTN, hypothyroid, CAD (s/p CABG), and chronic renal failure (stage IV-nephrosclerosis) who is a patient at [facility] who was sent to the ED today when he had an observed slide off of his wheelchair to the floor. He was found to have a HR of 40. No syncope described. He denied any chest pain or dyspnea. In the ED he received atropine with an increase in HR to 50. on admission Labs showed worsening of his renal failure and chronic anemia. #Bradycardia- sinus bradycardia on EKG. Was discovered after he slid to floor out of wheelchair on the day of admission at [facility]. No chest pain, dyspnea. Received some atropine in ED with increase in rate. Cardiology recommendation against pacemaker at this time. Patient CODE STATUS was changed to DNR/DNI. Plan: * DC bedside Atrovent * Continue holding beta misa #Acute on Chronic Renal Failure Has had progressive renal failure this year. Cr on admission was 4.3 toda is up to 4.5. Most likely secondary to hypertensive nephrosclerosis along with cardiorenal factors. Nephrology recommended against considering her pursuing chronic dialysis as it would not improve his quality of life or given any actual quality time. Family seemed to understand and agree. Plan * We will give 1 dose of Lasix * Avoid nephrotoxins as possible. * We'll check electrolytes closely #Acute on Chronic Anemia Had acute of drop in H&H, status post 1 RBCs packed transfusion. Hemoglobin improved to 8 yesterday posttransfusion but dropped back to 7.6 this AM. 3 negative guaiac. No source of bleeding can be observed. Plan * Type and cross matched, conset obtained by calling daughter * Repeat CBCs at 1600 and transfuse to keep above 7 * We added reticulocytes count and LDH(r/o BM pathologies and hemolytic anemia) * Aspirin is in hold(thrombocytopenia and possible active blood loss) #Parkinson's disease * Continue [employer] Carbidopa/Levodopa 2mg TID #Hypothyroid- TSH minimally elevated. * Continue Levothyroxine 25mcg daily for now * TSH elevated to 7 with free T4 and T3 within normal limits. 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 * Continue hold metoprolol due to bradycardia. #HLD- on Simvastatin. * Continue Simvastatin. Patient is DNR/DNI, currently stable and does not need to be in ICU. Nothing by mouth because of severe cough during swallowing test DVT prophylaxis mechanical DNR/DNI. Problem List: 1. Sinus bradycardia 2. Hyperkalemia 3. CKD (chronic kidney disease) Pain Ratin Tomorrow's Labs & Rationales: CBC and ICU bundle Plan DVT/Prophylaxis: pharmacological
[2017-02-06 08:00] VITALS: BP 140/90
--- NOTE | 2017-02-06 09:39 | NUR ---
WOUND CARE: REQUESTED BY NURSING STAFF TO EVALUATE PT FOR SKIN ALTERATIONS PRESENT ON ADMISSION TO [facility]NEES, THIGHS, AND TOES - SON PRESENT AT BEDSIDE OFFERED HX - PT RESIDES IN [facility] SINCE DECEMBER - PITTING EDEMA NOTED TO LOWER EXTREMETIES - WEAK PALPABLE PULSES DUE TO EDEMA - ABRASIONS WITH DRIED SCABS NOTED TO [facility] K[facility], WELL SCABBED AREAS TO RIGHT THIGH - RIGHT FOOT BETWEEN 5TH, 4TH AND 3RD DIGITS KISSING ULCERS PRESENT CLINICALLY UNSTAGEBLE PRESSURE INJURIES 1 CM PALE YELLOW FILL - BASE OF 5TH/4TH DIGIT ANTERIOR ASPECT FULL THICKNESS ULCERATION 0.5 X 1.3 CM YELLOW CRUSTED SCAB - LEFT FOOT AT 3RD, 4TH DIGIT KISSING ULCERS UNSTAGEABLE 0.5 CM YELLOW CENTER - PT C/O PAIN WHEN CLEANSED OR PALPATED - RN ALSO REPORTS HX GOUT - RECOMMENDATION: CLEANSE WITH NS FB KALTOSTAT ROPE BETWEEN WEB SPACES OF ALL DIGITS QD- IF FAILURE TO IMPROVE OR DETERIORATION IN 3 DAYS, CONSIDER PODIATRY CONSULT PLEASE
--- NOTE | 2017-02-06 10:36 | NUR ---
PT OOB W PT TO CHAIR. PT TOLERATED WELL. HR AND BP MAINTAINED.
--- NOTE | 2017-02-06 10:42 | PN- Cardiology ---
Subjective Subjective: No apparent distress but the NG tube is somewhat uncomfortable. I spoke with his family in the room today. Edema is felt to be at baseline. Objective Vital Signs and I&Os Vital Signs Date Time Temp Pulse Resp B/P B/P Pulse O2 O2 Flow FiO2 Mean Ox Delivery Rate 02/06 0800 98 Room Air 02/06 0800 96.3 58 15 140/90 98 Room Air 02/06 0421 96 Room Air 02/06 0000 96 Room Air 02/06 0000 97.0 50 16 116/54 96 Room Air 02/05 2015 99 Room Air 02/05 1600 94 Room Air 02/05 1600 96.7 47 16 129/50 94 Room Air 02/05 1200 95 Room Air Intake & Output 02/06 1600 02/06 0800 02/06 0000 02/05 1600 02/05 0800 02/05 0000 Intake Total 352 283 430 630 100 Output Total 390 310 180 300 Balance -38 -27 430 450 -200 Intake, Blood 350 Product Intake, IV 292 183 80 390 Intake, Oral 0 Intake, Other 60 100 240 100 Number 1 1 0 Bowel Movements Output, Urine 390 310 180 300 Physical Exam: General: no apparent distress. Eyes: No obvious scleral icterus. HEENT: No jugular venous distention, NGTube noted Cardiovascular: Normal intensity S1/S2. One out of 6 systolic murmur Respiratory: Mildly decreased air entry bilaterally Abdomen: no guarding or rebound tenderness. Musculoskeletal: No clubbing or cyanosis noted, 1+ lower extremity edema bilaterally Skin: Warm Lymph: No gross lymphadenopathy. Current Medications: Current Medications Sig/Miriam Start time Last Medication Dose Route Stop Time Status Admin Acetaminophen 650 MG Q6-PRN PRN 02/04 1200 AC PO Aspirin 81 MG DAILY 02/05 1000 AC PO Atorvastatin Calcium 20 MG 1700 02/04 1700 AC 02/05 PO 1604 Calcium Gluconate 1 GM ONCE ONE 02/06 0930 DC Sodium Chloride 100 ML IV 02/06 1029 Carbidopa/Levodopa 2 TAB TID 02/04 1600 AC 02/06 PO 0954 Dextrose 25 GM ONCE ONE 02/05 1115 DC 02/05 IV 02/05 1116 1115 Dextrose/Water 1,000 ML .Q24H 02/05 1715 AC 02/05 IV 02/06 171 1718 Epoetin Luca 20,000 U Q 2 WEEKS 02/04 1830 AC 02/04 SC 2304 Heparin Sodium 5,000 UNIT Q8 02/04 1400 AC 02/04 (Porcine) SC 2304 Levothyroxine Sodium 0.025 MG DAILY AC 02/05 0700 AC 02/06 PO 0619 Phenol 2 SPRAY Q4 HRS NEEDED PRN 02/04 2330 AC 02/05 EXT 0004 Pregabalin 50 MG DAILY 02/05 1000 AC 02/06 PO 0954 Sodium Bicarbonate 1,300 MG BID 02/04 2200 AC 02/06 PO 0954 Sodium Polystyrene 60 ML ONCE ONE 02/05 1930 DC 02/05 Sulfonate PO 02/05 1931 1830 Sodium Polystyrene 60 ML ONCE ONE 02/05 1830 CAN Sulfonate AR 02/05 1831 Results Last 48 Hrs of Labs/Mics: Laboratory Tests 02/06/17 0410: Anion Gap 14, Estimated GFR 12 L, Glucose 83, Calcium 5.8 *L, Phosphorus 8.3 H , Magnesium 3.0 H, Total Bilirubin 0.4, AST 11 L, ALT 17 L, Albumin 2.5 L, TSH 5.910 H, Free T4 1.01, CBC w Diff NO MAN DIFF REQ, RBC 2.53 L, MCV 90.8, MCH 30.2, RDW 15.9 H, MPV 8.0, Gran % 76.6 H, Lymphocytes % 12.7 L, Monocytes % 9.7 H, Eosinophils % 0.7, Basophils % 0.3, Absolute Granulocytes 2.9, Absolute Lymphocytes 0.5 L, Absolute Monocytes 0.4, Absolute Eosinophils 0, Absolute Basophils 0, PUBS MCHC 33.3 02/05/17 1620: Haptoglobin Pending 02/05/17 1620: Anion Gap 13, Estimated GFR 13 L, Glucose 71, Calcium 6.0 L, Phosphorus 8.5 H , Magnesium 3.0 H, Total Bilirubin 0.6, AST 16 L, ALT 17 L, Lactate Dehydrogenase 677 H, Albumin 2.7 L, Vitamin B12 586, Folate > 20.0 H, CBC w Diff NO MAN DIFF REQ, RBC 2.64 L, MCV 90.8, MCH 30.1, RDW 15.7 H, MPV 9.2, Gran % 73.9, Lymphocytes % 14.4 L, Monocytes % 10.3 H, Eosinophils % 1.1, Basophils % 0.3, Absolute Granulocytes 3.1, Absolute Lymphocytes 0.6 L, Absolute Monocytes 0.4, Absolute Eosinophils 0, Absolute Basophils 0, PUBS MCHC 33.1 02/05/17 0805: Anion Gap 14, Estimated GFR 13 L, BUN/Creatinine Ratio 26.0 H, Glucose 93, Calcium 6.0 L, Total Bilirubin 0.3, AST 12 L, ALT 19 L, Alkaline Phosphatase 99, Total Protein 4.7 L, Albumin 2.5 L, Globulin 2.2, Albumin/Globulin Ratio 1.1, CBC w Diff NO MAN DIFF REQ, RBC 2.05 L, MCV 93.6, MCH 31.1 H, RDW 14.9 H , MPV 9.0, Gran % 82.4 H, Lymphocytes % 9.8 L, Monocytes % 7.2, Eosinophils % 0.3, Basophils % 0.3, Absolute Granulocytes 3.8, Absolute Lymphocytes 0.4 L, Absolute Monocytes 0.3, Absolute Eosinophils 0, Absolute Basophils 0, PUBS MCHC 33.2 02/05/17 0500: Thyroxine (T4) Cancelled 02/05/17 0320: Anion Gap 14, Estimated GFR 13 L, BUN/Creatinine Ratio 24.5, Glucose 35 *L, Calcium 6.3 L, Phosphorus 8.2 H, Magnesium 3.1 H, Total Bilirubin 0.3, AST 12 L, ALT 15 L, Alkaline Phosphatase 104, Total Protein 5.0 L, Albumin 2.5 L, Globulin 2.5, Albumin/Globulin Ratio 1.0 L, TSH 7.550 H, Free T4 1.00, Thyroxine (T4) 4.9, CBC w Diff NO MAN DIFF REQ, RBC 2.18 L, MCV 92.7, MCH 30.2, RDW 14.8 H, MPV 8.1, Gran % 73.4, Lymphocytes % 16.1 L, Monocytes % 9.6 H, Eosinophils % 0.7, Basophils % 0.2, Absolute Granulocytes 4.3, Absolute Lymphocytes 1.0 L, Absolute Monocytes 0.6, Absolute Eosinophils 0, Absolute Basophils 0, PUBS MCHC 32.6 L 02/04/17 2225: Anion Gap 14, Estimated GFR 14 L, BUN/Creatinine Ratio 27.3 H, Troponin I 0.02 02/04/17 1620: Iron 79, TIBC 276, Ferritin 217.0, Troponin I < 0.01 02/04/17 1520: Lactic Acid 1.1 02/04/17 1140: Urine Color YEL, Urine Clarity CLEAR, Urine pH 6.0, Ur Specific [place] 1.015, Urine Protein 100 H, Urine Ketones NEG, Urine Nitrite NEG, Urine Bilirubin NEG, Urine Urobilinogen 0.2, Ur Leukocyte Esterase NEG, Ur Microscopic SEDIMENT EXAMINED, Urine RBC 10-15 H, Urine WBC RARE, Ur Epithelial Cells RARE, Urine Bacteria FEW H, Urine Mucus RARE, Urine Hemoglobin TRACE-INTACT H, Urine Glucose NEG Microbiology 02/04 1440 UPPER RESP: Surveillance Culture - COMP 02/04 144 GI: Surveillance Culture - COMP Recent Imaging Studies: Telemetry tracings were personally reviewed and shows sinus bradycardia with APCs and PVCs; no evidence of advanced heart block or prolonged pauses CXR from yesterday: IMPRESSION: Satisfactory position of ET tube. Nasogastric tube tip is not well seen. Low lung volumes. Slight interval increase in bilateral airspace disease from yesterday's exam. Echocardiogram CONCLUSIONS Normal left and right ventricular systolic function. Mild Left ventricular hypertrophy. Moderate Aortic stenosis. Moderate Pulmonary hypertension. Type 1 Diastolic LV dysfunction. Talha Rausch M.D. (Electronically Signed) Final Date: 05 February 2017 19:34 Assessment/Plan Assessment/Plan 1. Parkinson's 2. CAD/History of remote CABG 3. CKD, progressive 4. Hx IVCD; sinus bradycardia 5. History of mild to moderate aortic stenosis 6. History of chronic lower extremity edema 7. History of hypertension 8. Hyperkalemia 9. Anemia; status post transfusion The patient remains hemodynamically stable. Telemetry shows low-level sinus bradycardia with no evidence of advanced heart block or prolonged pauses. Would not restart his beta misa given his normal ejection fraction but at this time I do not see an obvious indication for permanent pacemaker. No obvious evidence of bleeding on low-dose aspirin; is on Procrit. Diuretics currently on hold in the setting of progressive renal dysfunction. No evidence of decompensated congestive heart failure at this time. Echocardiogram report as above which is minimally changed compared to the study from last month. Anuel Seymour MD [facility] Continue telemetry? Yes
--- NOTE | 2017-02-06 10:53 | NUR ---
DR WILKERSON TO BEDSIDE TO EVALUATE PT AND DISCUSS POC. SAID OK TO DC EXTERNAL PACER PADS. PADS REMOVED.
--- NOTE | 2017-02-06 11:36 | NUR ---
DISCUSSED LAB VALUES OF CALCIUM 5.8 AND H/H OF 7.6/22.[address] ENGLISH. CALCIUM GLUCONATE 1 GM ORDERED AND GIVEN. WILL WATCH H/H AND REPEAT CBC THIS AFTERNOON.
--- NOTE | 2017-02-06 11:41 | NUR ---
SWALLOW EVALUATION OBTAINED. PATHOLOGIST SAID TO KEEP PT NPO/ NGT IN SITU AND RECOMMENDED MBS FOR MONDAY. MBS ORDERED. PT AND FAMILY UPDATED ON POC.
--- NOTE | 2017-02-06 11:43 | NUR ---
ACCUCHECKS Q 2 HR: 102,101,103. PT CONTINUES ON D10 AT 40ML PER HR.
--- NOTE | 2017-02-06 11:44 | NUR ---
KALSTOSTAT DRESSING TO TOES ON BOTH FEET DIRECTED BY WOCN.
--- NOTE | 2017-02-06 13:43 | NUR ---
PT DOWNGRADED TO TELEMETRY. REMAINS IN ICU A HOLD.
--- NOTE | 2017-02-06 13:56 | PN- Nephrology ---
Assessment/Plan Assessment: 1. Acute on chronic kidney disease. He is making urine. My impression is that this gentleman is, at a baseline, severely challenged. Given his array of comorbidities, dialysis would not be appropriate. 2. Bradycardia 3. Chronic kidney disease 4. History of coronary artery disease Suggestion: 1. Continue with current therapy. 2. Did discuss with the patient's sons that hemodialysis would not be appropriate. My sense is that he is chronically debilitated and confined to a prison. There are studies that suggest that patients, who are older, confined to a prison with multiple comorbidities, do better if not placed on dialysis. With dialysis, the risk is undertaken involving line placement as well as attending dialysis sessions 3 times a week. Not surprisingly, patient's who face challenges with multiple comorbidities confined to an ECF along with advanced age do better with conservative therapy rather than being placed on dialysis. Would continue the current therapy but would not place him on dialysis should the need arise. This was discussed with the patient's sons. Subjective Subjective: Patient seen with family visiting. He says he doesn't feel so well. He drifts off back to sleep. Objective Vital Signs and I&Os Vital Signs Date Time Temp Pulse Resp B/P B/P Pulse O2 O2 Flow FiO2 Mean Ox Delivery Rate 02/06 0800 98 Room Air 02/06 0800 96.3 58 15 140/90 98 Room Air 02/06 0421 96 Room Air 02/06 0000 96 Room Air 02/06 0000 97.0 50 16 116/54 96 Room Air 02/05 2015 99 Room Air 02/05 1600 94 Room Air 02/05 1600 96.7 47 16 129/50 94 Room Air Intake & Output 02/06 1600 02/06 0400 02/05 1600 02/05 0400 02/04 1600 02/04 0400 Intake Total 711 926 1794 100 0 Output Total 390 310 180 300 830 Balance -38 -27 880 -200 -830 Intake, Blood 350 Product Intake, IV 292 183 470 Intake, Oral 0 0 Intake, Other 60 100 240 100 Number 1 1 0 Bowel Movements Output, Urine 390 310 180 300 830 Patient 172 lb Weight Weight Bed scale Measurement Method Physical Exam General Appearance: well developed/nourished, no apparent distress, lethargic Head: atraumatic, normal appearance Ears, Nose, Throat: hearing decreased Neck: normal inspection, trachea mid line Respiratory: normal breath sounds Cardiovascular: regular rate/rhythm, edema Abdomen: normal bowel sounds, soft, non-tender, no organomegaly Extremities: edema Neurologic/Psychiatric: lethargic, [place] Current Medications: Current Medications Sig/Miriam Start time Last Medication Dose Route Stop Time Status Admin Acetaminophen 650 MG Q6-PRN PRN 02/04 1200 AC PO Aspirin 81 MG DAILY 02/05 1000 AC PO Atorvastatin Calcium 20 MG 1700 02/04 1700 AC 02/05 PO 1604 Calcium Gluconate 1 GM ONCE ONE 02/06 0930 DC 02/06 Sodium Chloride 100 ML IV 02/06 1029 1000 Carbidopa/Levodopa 2 TAB TID 02/04 1600 AC 02/06 PO 0954 Dextrose/Water 1,000 ML .Q24H 02/05 1715 AC 02/05 IV 02/06 171 1718 Epoetin Luca 20,000 U Q 2 WEEKS 02/04 1830 AC 02/04 SC 2304 Heparin Sodium 5,000 UNIT Q8 02/04 1400 AC 02/04 (Porcine) SC 2304 Levothyroxine Sodium 0.025 MG DAILY AC 02/05 0700 AC 02/06 PO 0619 Phenol 2 SPRAY Q4 HRS NEEDED PRN 02/04 2330 AC 02/05 EXT 0004 Pregabalin 50 MG DAILY 02/05 1000 AC 02/06 PO 0954 Sodium Bicarbonate 1,300 MG BID 02/04 2200 AC 02/06 PO 0954 Sodium Polystyrene 60 ML ONCE ONE 02/05 1930 DC 02/05 Sulfonate PO 02/05 1931 1830 Sodium Polystyrene 60 ML ONCE ONE 02/05 1830 CAN Sulfonate MD 02/05 1831 Results Pertinent Lab Results: Laboratory Tests 02/06 02/05 0410 1620 Chemistry Sodium (137 - 145 mmol/L) 131 L Potassium (3.5 - 5.1 mmol/L) 4.6 Chloride (98 - 107 mmol/L) 95 L Carbon Dioxide (22 - 30 mmol/L) 22 Anion Gap (5 - 16) 14 BUN (9 - 20 mg/dL) 107 *H Creatinine (0.7 - 1.2 mg/dL) 4.5 H Estimated GFR (>60 ml/min) 12 L Glucose (65 - 99 mg/dL) 83 Calcium (8.4 - 10.2 mg/dL) 5.8 *L Phosphorus (2.5 - 4.5 mg/dL) 8.3 H Magnesium (1.6 - 2.3 mg/dL) 3.0 H Total Bilirubin (0.2 - 1.3 mg/dL) 0.4 AST (17 - 59 U/L) 11 L ALT (21 - 72 U/L) 17 L Lactate Dehydrogenase (313 - 618 U/L) 495 Albumin (3.5 - 5.0 g/dL) 2.5 L TSH (0.270 - 4.200 uIU/mL) 5.910 H Free T4 (0.85 - 1.93 ng/dL) 1.01 Hematology CBC w Diff NO MAN DIFF REQ WBC (4.8 - 10.8 /CUMM) 3.8 L RBC (4.70 - 6.10 /CUMM) 2.53 L Hgb (14.0 - 18.0 G/DL) 7.6 L Hct (42 - 52 %) 22.9 L MCV (80.0 - 94.0 FL) 90.8 MCH (27.0 - 31.0 PG) 30.2 RDW (11.5 - 14.5 %) 15.9 H Plt Count (130 - 400 /CUMM) 122 L MPV (7.4 - 10.4 FL) 8.0 Gran % (42.2 - 75.2 %) 76.6 H Lymphocytes % (20.5 - 51.1 %) 12.7 L Monocytes % (1.7 - 9.3 %) 9.7 H Eosinophils % (0 - 5 %) 0.7 Basophils % (0.0 - 2.0 %) 0.3 Absolute Granulocytes (1.4 - 6.5 /CUMM) 2.9 Absolute Lymphocytes (1.2 - 3.4 /CUMM) 0.5 L Absolute Monocytes (0.10 - 0.60 /CUMM) 0.4 Absolute Eosinophils (0.0 - 0.7 /CUMM) 0 Absolute Basophils (0.0 - 0.2 /CUMM) 0 PUBS MCHC (33.0 - 37.0 G/DL) 33.3 Retic Count (0.5 - 2.0 %) 2.01 H Haptoglobin Pending 02/05 02/05 1620 0805 Chemistry Sodium (137 - 145 mmol/L) 130 L 130 L Potassium (3.5 - 5.1 mmol/L) 5.7 H 5.4 H Chloride (98 - 107 mmol/L) 96 L 95 L Carbon Dioxide (22 - 30 mmol/L) 21 L 21 L Anion Gap (5 - 16) 13 14 BUN (9 - 20 mg/dL) 114 *H 112 *H Creatinine (0.7 - 1.2 mg/dL) 4.4 H 4.3 H Estimated GFR (>60 ml/min) 13 L 13 L BUN/Creatinine Ratio (7 - 25 %) 26.0 H Glucose (65 - 99 mg/dL) 71 93 Calcium (8.4 - 10.2 mg/dL) 6.0 L 6.0 L Phosphorus (2.5 - 4.5 mg/dL) 8.5 H Magnesium (1.6 - 2.3 mg/dL) 3.0 H Total Bilirubin (0.2 - 1.3 mg/dL) 0.6 0.3 AST (17 - 59 U/L) 16 L 12 L ALT (21 - 72 U/L) 17 L 19 L Alkaline Phosphatase (< 127 U/L) 99 Lactate Dehydrogenase (313 - 618 U/L) 677 H Total Protein (6.3 - 8.2 g/dL) 4.7 L Albumin (3.5 - 5.0 g/dL) 2.7 L 2.5 L Globulin (1.9 - 4.2 gm/dL) 2.2 Albumin/Globulin Ratio (1.1 - 2.2 %) 1.1 Vitamin B12 (239 - 931 pg/mL) 586 Folate (2.76 - 20.0 ng/mL) > 20.0 H Hematology CBC w Diff NO MAN DIFF REQ NO MAN DIFF REQ WBC (4.8 - 10.8 /CUMM) 4.2 L 4.6 L RBC (4.70 - 6.10 /CUMM) 2.64 L 2.05 L Hgb (14.0 - 18.0 G/DL) 8.0 L 6.4 *L Hct (42 - 52 %) 24.0 L 19.2 *L MCV (80.0 - 94.0 FL) 90.8 93.6 MCH (27.0 - 31.0 PG) 30.1 31.1 H RDW (11.5 - 14.5 %) 15.7 H 14.9 H Plt Count (130 - 400 /CUMM) 137 119 L MPV (7.4 - 10.4 FL) 9.2 9.0 Gran % (42.2 - 75.2 %) 73.9 82.4 H Lymphocytes % (20.5 - 51.1 %) 14.4 L 9.8 L Monocytes % (1.7 - 9.3 %) 10.3 H 7.2 Eosinophils % (0 - 5 %) 1.1 0.3 Basophils % (0.0 - 2.0 %) 0.3 0.3 Absolute Granulocytes (1.4 - 6.5 /CUMM) 3.1 3.8 Absolute Lymphocytes (1.2 - 3.4 /CUMM) 0.6 L 0.4 L Absolute Monocytes (0.10 - 0.60 /CUMM) 0.4 0.3 Absolute Eosinophils (0.0 - 0.7 /CUMM) 0 0 Absolute Basophils (0.0 - 0.2 /CUMM) 0 0 PUBS MCHC (33.0 - 37.0 G/DL) 33.1 33.2 02/05 02/05 02/04 0500 0320 2225 Chemistry Sodium (137 - 145 mmol/L) 130 L 128 L Potassium (3.5 - 5.1 mmol/L) 5.4 H 6.2 *H Chloride (98 - 107 mmol/L) 94 L 94 L Carbon Dioxide (22 - 30 mmol/L) 22 20 L Anion Gap (5 - 16) 14 14 BUN (9 - 20 mg/dL) 108 *H 112 *H Creatinine (0.7 - 1.2 mg/dL) 4.4 H 4.1 H Estimated GFR (>60 ml/min) 13 L 14 L BUN/Creatinine Ratio (7 - 25 %) 24.5 27.3 H Glucose (65 - 99 mg/dL) 35 *L Calcium (8.4 - 10.2 mg/dL) 6.3 L Phosphorus (2.5 - 4.5 mg/dL) 8.2 H Magnesium (1.6 - 2.3 mg/dL) 3.1 H Total Bilirubin (0.2 - 1.3 mg/dL) 0.3 AST (17 - 59 U/L) 12 L ALT (21 - 72 U/L) 15 L Alkaline Phosphatase (< 127 U/L) 104 Troponin I (<0.11 ng/ml) 0.02 Total Protein (6.3 - 8.2 g/dL) 5.0 L Albumin (3.5 - 5.0 g/dL) 2.5 L Globulin (1.9 - 4.2 gm/dL) 2.5 Albumin/Globulin Ratio (1.1 - 2.2 %) 1.0 L TSH (0.270 - 4.200 uIU/mL) 7.550 H Free T4 (0.85 - 1.93 ng/dL) 1.00 Thyroxine (T4) (4.5 - 10.9 ug/dL) Cancelled 4.9 Hematology CBC w Diff NO MAN DIFF REQ WBC (4.8 - 10.8 /CUMM) 5.9 RBC (4.70 - 6.10 /CUMM) 2.18 L Hgb (14.0 - 18.0 G/DL) 6.6 *L Hct (42 - 52 %) 20.2 L MCV (80.0 - 94.0 FL) 92.7 MCH (27.0 - 31.0 PG) 30.2 RDW (11.5 - 14.5 %) 14.8 H Plt Count (130 - 400 /CUMM) 141 MPV (7.4 - 10.4 FL) 8.1 Gran % (42.2 - 75.2 %) 73.4 Lymphocytes % (20.5 - 51.1 %) 16.1 L Monocytes % (1.7 - 9.3 %) 9.6 H Eosinophils % (0 - 5 %) 0.7 Basophils % (0.0 - 2.0 %) 0.2 Absolute Granulocytes (1.4 - 6.5 /CUMM) 4.3 Absolute Lymphocytes (1.2 - 3.4 /CUMM) 1.0 L Absolute Monocytes (0.10 - 0.60 /CUMM) 0.6 Absolute Eosinophils (0.0 - 0.7 /CUMM) 0 Absolute Basophils (0.0 - 0.2 /CUMM) 0 PUBS MCHC (33.0 - 37.0 G/DL) 32.6 L 02/04 02/04 02/04 02/04 1620 1520 1140 0849 Chemistry Lactic Acid (0.7 - 2.1 mmol/L) 1.1 Iron (49 - 181 ug/dL) 79 TIBC (261 - 462 ug/dL) 276 Ferritin (17.9 - 464 ng/mL) 217.0 Troponin I (<0.11 ng/ml) < 0.01 Coagulation PT (9.4 - 12.5 SEC) 10.7 INR (0.90 - 1.17) 1.02 APTT (25 - 37 SEC) 33 Urines Urine Color (YEL,AMB,STR) YEL Urine Clarity (CLEAR) CLEAR Urine pH (5.0 - 8.0) 6.0 Ur Specific [place] (1.001 - 1.035) 1.015 Urine Protein (NEG,<30 MG/DL) 100 H Urine Ketones (NEG) NEG Urine Nitrite (NEG) NEG Urine Bilirubin (NEG) NEG Urine Urobilinogen (0.1 - 1.0 EU/dl) 0.2 Ur Leukocyte Esterase (NEG) NEG Ur Microscopic SEDIMENT EXAMINED Urine RBC (0 - 5 /HPF) 10-15 H Urine WBC (0 - 2 /HPF) RARE Ur Epithelial Cells (NONE,FEW) RARE Urine Bacteria (NEG/NONE) FEW H Urine Mucus (FEW,NONE) RARE Urine Hemoglobin (NEG) TRACE-INTACT H Urine Glucose (N MG/DL) NEG 02/04 0820 Chemistry Sodium (137 - 145 mmol/L) 129 L Potassium (3.5 - 5.1 mmol/L) 5.7 H Chloride (98 - 107 mmol/L) 95 L Carbon Dioxide (22 - 30 mmol/L) 22 Anion Gap (5 - 16) 13 BUN (9 - 20 mg/dL) 111 *H Creatinine (0.7 - 1.2 mg/dL) 4.3 H Estimated GFR (>60 ml/min) 13 L BUN/Creatinine Ratio (7 - 25 %) 25.8 H Glucose (65 - 99 mg/dL) 77 Hemoglobin A1c (4.2 - 5.8 %) 5.0 Lactic Acid (0.7 - 2.1 mmol/L) 1.5 Calcium (8.4 - 10.2 mg/dL) 6.4 L Phosphorus (2.5 - 4.5 mg/dL) 8.3 H Magnesium (1.6 - 2.3 mg/dL) 3.0 H Total Bilirubin (0.2 - 1.3 mg/dL) 0.4 AST (17 - 59 U/L) 13 L ALT (21 - 72 U/L) 15 L Alkaline Phosphatase (< 127 U/L) 139 H Troponin I (<0.11 ng/ml) 0.02 [id number] Pept (<125 pg/mL) 34557 H Total Protein (6.3 - 8.2 g/dL) 5.6 L Albumin (3.5 - 5.0 g/dL) 2.9 L Globulin (1.9 - 4.2 gm/dL) 2.7 Albumin/Globulin Ratio (1.1 - 2.2 %) 1.1 25-OH Vitamin D Total (30 - 100 ng/ml) 13.6 L TSH (0.270 - 4.200 uIU/mL) 8.890 H Free T4 (0.85 - 1.93 ng/dL) 1.03 Hematology CBC w Diff NO MAN DIFF REQ WBC (4.8 - 10.8 /CUMM) 4.9 RBC (4.70 - 6.10 /CUMM) 2.56 L Hgb (14.0 - 18.0 G/DL) 7.9 L Hct (42 - 52 %) 23.6 L MCV (80.0 - 94.0 FL) 92.1 MCH (27.0 - 31.0 PG) 30.7 RDW (11.5 - 14.5 %) 14.8 H Plt Count (130 - 400 /CUMM) 158 MPV (7.4 - 10.4 FL) 8.6 Gran % (42.2 - 75.2 %) 72.7 Lymphocytes % (20.5 - 51.1 %) 15.2 L Monocytes % (1.7 - 9.3 %) 9.8 H Eosinophils % (0 - 5 %) 1.8 Basophils % (0.0 - 2.0 %) 0.5 Absolute Granulocytes (1.4 - 6.5 /CUMM) 3.6 Absolute Lymphocytes (1.2 - 3.4 /CUMM) 0.7 L Absolute Monocytes (0.10 - 0.60 /CUMM) 0.5 Absolute Eosinophils (0.0 - 0.7 /CUMM) 0.1 Absolute Basophils (0.0 - 0.2 /CUMM) 0 PUBS MCHC (33.0 - 37.0 G/DL) 33.3
--- NOTE | 2017-02-06 14:45 | NUR ---
PT IVF CHANGED TO D5 50ML/HR. WILL CHECK BLOOD GLUCOSE X 1 HOUR.
[2017-02-06 16:00] VITALS: BP 138/60
[2017-02-06 16:59] LABS: ABSOLUTE BASOPHIL COUNT 0 /CUMM (0.0-0.2); ABSOLUTE EOSINOPHIL COUNT 0 /CUMM (0.0-0.7); ABSOLUTE GRANULOCYTE CT 3.6 /CUMM (1.4-6.5); ABSOLUTE LYMPH COUNT 0.5 /CUMM (1.2-3.4); ABSOLUTE MONOCYTE COUNT 0.5 /CUMM (0.10-0.60); BASOPHIL % 0.2 % (0.0-2.0); EOSINOPHIL % 0.5 % (0-5); GRANULOCYTE % 77.4 % (42.2-75.2); HEMATOCRIT 25.4 % (42-52); MEAN CORPUSCULAR HGB 29.9 PG (27.0-31.0); MEAN CORPUSCULAR HGB CONC 33.1 G/DL (33.0-37.0); MEAN CORPUSCULAR VOLUME 90.5 FL (80.0-94.0); MEAN PLATELET VOLUME 8.7 FL (7.4-10.4); PLATELET COUNT 133 /CUMM (130-400); RBC DISTRIBUTION WIDTH 15.9 % (11.5-14.5); RED BLOOD CELL CT 2.81 /CUMM (4.70-6.10); WHITE BLOOD CELL COUNT 4.7 /CUMM (4.8-10.8)
--- NOTE | 2017-02-06 19:01 | NUR ---
AT 1600 D10 CHANGED TO D5NS. ACCUCHECKS HAVE BEEN 98,92,97,86.
[2017-02-06 20:33] VITALS: BP 142/82
--- NOTE | 2017-02-06 20:35 | NUR ---
RECIEVED PT RESTING IN BED, ALERT TO PERSON KNOWS IS IN HOSPITAL BUT NOT DATE AND TIME, PT WITH SOME GARBLED SPEECH. FOLLOWS COMMANDS. [place]. HR 1ST DEGREE AV BLOCK WITH PVC'S RATE 60'S. PT ON ROOM AIR, RHONCHI AUSCULTATED, INSTRUCTED PT TO COUGH BUT NONPRODUCTIVE, [id number]%. PT WITH NGT TO RIGHT NARES CLAMPED. COOLEY IN PLACE ADEQUATE CLEAR YELLOW URINE. PT WITH NO COMPLAINTS OF PAIN. ACCUCHECK 97 REMAINS ON D5NS @50ML/HR. PT REPOSITIONED FOR COMFORT
--- NOTE | 2017-02-06 22:26 | NUR ---
PT GIVEN FULL BED BATH BEFORE BED, NOTICED RASH TO BILATERAL SHINS WHERE THE ALPS SLEEVES WERE APPLIED. PT NOT COMPLAINING OF ITCHINESS OR DISCOMFORT. NOTIFIED MD MANUEL BATES TO BEDSIDE TO ASSESS. PER MD KEEP ALPS SLEEVES OFF AT THIS TIME. PT RECEIVED 2200 OF HEPARIN. WILL MONITOR.
[2017-02-07 01:00] VITALS: BP 136/62
[2017-02-07 04:51] LABS: ABSOLUTE BASOPHIL COUNT 0 /CUMM (0.0-0.2); ABSOLUTE EOSINOPHIL COUNT 0 /CUMM (0.0-0.7); ABSOLUTE GRANULOCYTE CT 2.7 /CUMM (1.4-6.5); ABSOLUTE LYMPH COUNT 0.6 /CUMM (1.2-3.4); ABSOLUTE MONOCYTE COUNT 0.4 /CUMM (0.10-0.60); BASOPHIL % 0.4 % (0.0-2.0); EOSINOPHIL % 0.8 % (0-5); GRANULOCYTE % 72.7 % (42.2-75.2); HEMATOCRIT 24.1 % (42-52); MEAN CORPUSCULAR HGB 29.9 PG (27.0-31.0); MEAN CORPUSCULAR HGB CONC 32.8 G/DL (33.0-37.0); MEAN CORPUSCULAR VOLUME 91.1 FL (80.0-94.0); MEAN PLATELET VOLUME 8.3 FL (7.4-10.4); PLATELET COUNT 130 /CUMM (130-400); RBC DISTRIBUTION WIDTH 15.7 % (11.5-14.5); RED BLOOD CELL CT 2.64 /CUMM (4.70-6.10); WHITE BLOOD CELL COUNT 3.8 /CUMM (4.8-10.8)
--- NOTE | 2017-02-07 07:58 | PN- Housestaff ---
See Addendum Subjective Follow-up For: 1. Complete heart block status post transvenous pacer placement. 2. Respiratory failure with possible aspiration pneumonitis versus pneumonia. 3. Resolved bleeding from OG tube. 4. Multiple comorbidities including Hhstory of stroke, hyperlipidemia, hypertension, and possible diabetes. Tele-Events Since Last Visit: Telemetry showed low level sinus bradycardia with no heart block. Subjective: Afebrile, hemodynamically stable, saturating upper 90s on room air. Patient is awake, alert and oriented X1. This morning patient is complaining of throat discomfort which most likely secondary to NG tube. No acute overnight events were reported. Review of Systems Constitutional: Reports: see HPI. Objective Last 24 Hrs of Vital Signs/I&O Vital Signs Date Time Temp Pulse Resp B/P B/P Pulse O2 O2 Flow FiO2 Mean Ox Delivery Rate 02/07 0100 96.3 55 14 136/62 97 Room Air 02/07 0000 97 Room Air 02/06 2033 97.1 65 18 142/82 95 Room Air 02/06 2000 95 Room Air 02/06 1600 95 Room Air 02/06 1600 54.0 54 20 138/60 95 Room Air Intake & Output 02/07 1600 02/07 0800 02/07 0000 Intake Total 494 827.4 Output Total 650 700 Balance -156 127.4 Intake, IV 404 677.4 Intake, Oral 0 0 Intake, Other 90 150 Number 0 0 Bowel Movements Output, Urine 650 700 Physical Exam General Appearance: Alert, Cooperative, No Acute Distress HEENT: Atraumatic, PERRLA, EOMI, Mucous Membr. moist/pink Cardiovascular: Regular Rate, Normal S1, Normal S2, 1/6 systolic murmur Lungs: Scattered rhonchi and wheezing Abdomen: Soft, No Tenderness Neurological: Normal Speech Extremities: No Clubbing, No Cyanosis, No Edema Current Medications: Current Medications Sig/Miriam Start time Last Medication Dose Route Stop Time Status Admin Acetaminophen 650 MG Q6-PRN PRN 02/04 1200 AC PO Aspirin 81 MG DAILY 02/05 1000 AC PO Atorvastatin Calcium 20 MG 1700 02/04 1700 AC 02/06 PO 1723 Calcium Gluconate 1 GM ONCE ONE 02/07 0730 DC 02/07 Sodium Chloride 100 ML IV 02/07 0829 0815 Calcium Gluconate 1 GM ONCE ONE 02/06 0930 DC 02/06 Sodium Chloride 100 ML IV 02/06 1029 1000 Carbidopa/Levodopa 2 TAB TID 02/04 1600 AC 02/06 PO 2128 Dextrose/Sodium 1,000 ML Q20H 02/06 1400 AC 02/06 Chloride IV 1724 Dextrose/Water 1,000 ML .Q24H 02/05 1715 DC 02/05 IV 02/06 1714 1718 Epoetin Luca 20,000 U Q 2 WEEKS 02/04 1830 AC 02/04 SC 2304 Heparin Sodium 5,000 UNIT Q8 02/04 1400 AC 02/07 (Porcine) SC 0607 Levothyroxine Sodium 0.025 MG DAILY AC 02/05 0700 AC 02/07 PO 0607 Phenol 2 SPRAY Q4 HRS NEEDED PRN 02/04 2330 AC 02/05 EXT 0004 Pregabalin 50 MG DAILY 02/05 1000 AC 02/06 PO 0954 Sodium Bicarbonate 1,300 MG BID 02/04 2200 AC 02/06 PO 2128 Last 24 Hrs of Lab/Deshawn Results Last 24 Hrs of Labs/Mics: Laboratory Tests 02/07/17 0421: Anion Gap 14, Estimated GFR 13 L, Glucose 78, Calcium 5.9 *L, Phosphorus 8.2 H , Magnesium 2.9 H, Total Bilirubin 0.5, AST 10 L, ALT 14 L, Albumin 2.5 L, CBC w Diff NO MAN DIFF REQ, RBC 2.64 L, MCV 91.1, MCH 29.9, RDW 15.7 H, MPV 8.3, Gran % 72.7, Lymphocytes % 15.2 L, Monocytes % 10.9 H, Eosinophils % 0.8, Basophils % 0.4, Absolute Granulocytes 2.7, Absolute Lymphocytes 0.6 L, Absolute Monocytes 0.4, Absolute Eosinophils 0, Absolute Basophils 0, PUBS MCHC 32.8 L 02/06/17 1610: CBC w Diff NO MAN DIFF REQ, RBC 2.81 L, MCV 90.5, MCH 29.9, RDW 15.9 H, MPV 8.7, Gran % 77.4 H, Lymphocytes % 10.7 L, Monocytes % 11.2 H, Eosinophils % 0.5, Basophils % 0.2, Absolute Granulocytes 3.6, Absolute Lymphocytes 0.5 L, Absolute Monocytes 0.5, Absolute Eosinophils 0, Absolute Basophils 0, PUBS MCHC 33.1 Assessment/Plan Assessment: 86 yo male with h/o Parkinson's Disease, HTN, hypothyroid, CAD (s/p CABG), and chronic renal failure (stage IV-nephrosclerosis) who is a patient at [facility] who was sent to the ED when he had an observed slide off of his wheelchair to the floor. He was found to have a HR of 40. No syncope described. He denied any chest pain or dyspnea. In the ED he received atropine with an increase in HR to 50. on admission Labs showed worsening of his renal failure and chronic anemia. #Bradycardia- sinus bradycardia on EKG. Was discovered after he slid to floor out of wheelchair on the day of admission. Cardiology recommendation against pacemaker at this time. Patient CODE STATUS was changed to DNR/DNI. Plan: * Continue holding beta misa #Acute on Chronic Renal Failure Has had progressive renal failure this year. Cr on admission was 4.3 toda is up to 4.5. Most likely secondary to hypertensive nephrosclerosis along with cardiorenal factors. Nephrology recommended against considering her pursuing chronic dialysis as it would not improve his quality of life or given any actual quality time. Family seemed to understand and agree. Plan * We will give 1 dose of Lasix * Avoid nephrotoxins as possible. * We'll check electrolytes closely #Acute on Chronic Anemia Had acute of drop in H&H, status post 1 RBCs packed transfusion. Hgb post transfusion are 8-->7.6-->8.4-->7.9. Plan * We will Keep hemoglobin above 7 * We will recheck CBCs daily * Aspirin is in hold #Parkinson's disease * Continue [employer] Carbidopa/Levodopa 2mg TID #Hypothyroid- TSH minimally elevated. * Continue Levothyroxine 25mcg daily for now * TSH elevated to 7 with free T4 and T3 within normal limits. 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 * Continue hold metoprolol due to bradycardia. #HLD- on Simvastatin. * Continue Simvastatin. On Telemetry Patient is DNR/DNI, currently stable and does not need to be in ICU. Nothing by mouth, schedule for swallowing eval later today DVT prophylaxis mechanical DNR/DNI. Problem List: 1. Sinus bradycardia 2. Hyperkalemia 3. CKD (chronic kidney disease) Pain Ratin Pain Location: throat Pain Goal: Remain pain free Pain Plan: See A&P Tomorrow's Labs & Rationales: CBC and BEP Consulting Request: Consulting Specialty: Cardiology Consulting Request: Consulting Specialty: Cardiology
[2017-02-07 08:00] VITALS: BP 140/70
--- NOTE | 2017-02-07 10:41 | PN- Cardiology ---
Subjective Subjective: The patient is awake, alert The events of the last 24 hours as well as telemetry were reviewed. Review of Systems: The review of systems is negative for chest pains, palpitations nor lightheadedness. The remainder of the 14 point review of systems is noncontributory with the exception of above. Objective Vital Signs and I&Os Vital Signs Date Time Temp Pulse Resp B/P B/P Pulse O2 O2 Flow FiO2 Mean Ox Delivery Rate 02/07 0100 96.3 55 14 136/62 97 Room Air 02/07 0000 97 Room Air 02/06 2033 97.1 65 18 142/82 95 Room Air 02/06 2000 95 Room Air 02/06 1600 95 Room Air 02/06 1600 54.0 54 20 138/60 95 Room Air Intake & Output 02/07 1600 02/07 0800 02/07 0000 02/06 1600 02/06 0800 02/06 0000 Intake Total 494 827.4 560 352 283 Output Total 650 700 300 390 310 Balance -156 127.4 260 -38 -27 Intake, IV 404 677.4 440 292 183 Intake, Oral 0 0 0 Intake, Other 90 150 120 60 100 Number 0 0 0 1 1 Bowel Movements Output, Urine 650 700 300 390 310 Physical Exam: General: Nontoxic, no apparent distress. HEENT: Sclera and conjunctiva within normal limits, without xanthelasmas. Neck: Carotids 2+ without bruits. Respiratory: Scattered rhonchi, air movement is good, without accessory respiratory muscle use. Heart: Regular rate and rhythm, 2/6 systolic ejection murmur at left sternal border, without JVD. Abdomen: Soft, nontender, no masses, normoactive bowel sounds. Extremities: Without clubbing, cyanosis, 1 mm pitting edema in both lower extremities to the mid tibial region. Neuro: Nonfocal exam, strength, 5 out of 5 Skin: Within normal limits without lesions. Psych: Mood and affect: Normal Current Medications: Current Medications Sig/Miriam Start time Last Medication Dose Route Stop Time Status Admin Acetaminophen 650 MG Q6-PRN PRN 02/04 1200 AC PO Aspirin 81 MG DAILY 02/05 1000 AC PO Atorvastatin Calcium 20 MG 1700 02/04 1700 AC 02/06 PO 1723 Calcium Gluconate 1 GM ONCE ONE 02/07 0730 DC 02/07 Sodium Chloride 100 ML IV 02/07 08 0815 Carbidopa/Levodopa 2 TAB TID 02/04 1600 AC 02/06 PO 2128 Dextrose/Sodium 1,000 ML Q20H 02/06 1400 AC 02/06 Chloride IV 1724 Dextrose/Water 1,000 ML .Q24H 02/05 1715 DC 02/05 IV 02/06 1714 1718 Epoetin Luca 20,000 U Q 2 WEEKS 02/04 1830 AC 02/04 SC 2304 Heparin Sodium 5,000 UNIT Q8 02/04 1400 AC 02/07 (Porcine) SC 0607 Levothyroxine Sodium 0.025 MG DAILY AC 02/05 0700 AC 02/07 PO 0607 Phenol 2 SPRAY Q4 HRS NEEDED PRN 02/04 2330 AC 02/05 EXT 0004 Pregabalin 50 MG DAILY 02/05 1000 AC 02/06 PO 0954 Sodium Bicarbonate 1,300 MG BID 02/04 2200 AC 02/06 PO 2128 Results Last 48 Hrs of Labs/Mics: Laboratory Tests 02/07/17 0421: Anion Gap 14, Estimated GFR 13 L, Glucose 78, Calcium 5.9 *L, Phosphorus 8.2 H , Magnesium 2.9 H, Total Bilirubin 0.5, AST 10 L, ALT 14 L, Albumin 2.5 L, CBC w Diff NO MAN DIFF REQ, RBC 2.64 L, MCV 91.1, MCH 29.9, RDW 15.7 H, MPV 8.3, Gran % 72.7, Lymphocytes % 15.2 L, Monocytes % 10.9 H, Eosinophils % 0.8, Basophils % 0.4, Absolute Granulocytes 2.7, Absolute Lymphocytes 0.6 L, Absolute Monocytes 0.4, Absolute Eosinophils 0, Absolute Basophils 0, PUBS MCHC 32.8 L 02/06/17 1610: CBC w Diff NO MAN DIFF REQ, RBC 2.81 L, MCV 90.5, MCH 29.9, RDW 15.9 H, MPV 8.7, Gran % 77.4 H, Lymphocytes % 10.7 L, Monocytes % 11.2 H, Eosinophils % 0.5, Basophils % 0.2, Absolute Granulocytes 3.6, Absolute Lymphocytes 0.5 L, Absolute Monocytes 0.5, Absolute Eosinophils 0, Absolute Basophils 0, PUBS MCHC 33.1 02/06/17 0410: Anion Gap 14, Estimated GFR 12 L, Glucose 83, Calcium 5.8 *L, Phosphorus 8.3 H , Magnesium 3.0 H, Total Bilirubin 0.4, AST 11 L, ALT 17 L, Lactate Dehydrogenase 495, Albumin 2.5 L, TSH 5.910 H, Free T4 1.01, CBC w Diff NO MAN DIFF REQ, RBC 2.53 L, MCV 90.8, MCH 30.2, RDW 15.9 H, MPV 8.0, Gran % 76.6 H, Lymphocytes % 12.7 L, Monocytes % 9.7 H, Eosinophils % 0.7, Basophils % 0.3, Absolute Granulocytes 2.9, Absolute Lymphocytes 0.5 L, Absolute Monocytes 0.4, Absolute Eosinophils 0, Absolute Basophils 0, PUBS MCHC 33.3, Retic Count 2.01 H 02/05/17 1620: Haptoglobin Pending 02/05/17 1620: Anion Gap 13, Estimated GFR 13 L, Glucose 71, Calcium 6.0 L, Phosphorus 8.5 H , Magnesium 3.0 H, Total Bilirubin 0.6, AST 16 L, ALT 17 L, Lactate Dehydrogenase 677 H, Albumin 2.7 L, Vitamin B12 586, Folate > 20.0 H, CBC w Diff NO MAN DIFF REQ, RBC 2.64 L, MCV 90.8, MCH 30.1, RDW 15.7 H, MPV 9.2, Gran % 73.9, Lymphocytes % 14.4 L, Monocytes % 10.3 H, Eosinophils % 1.1, Basophils % 0.3, Absolute Granulocytes 3.1, Absolute Lymphocytes 0.6 L, Absolute Monocytes 0.4, Absolute Eosinophils 0, Absolute Basophils 0, PUBS MCHC 33.1 Assessment/Plan Assessment/Plan 1. Parkinson's 2. CAD/History of remote CABG 3. CKD, progressive 4. Hx IVCD; sinus bradycardia 5. History of mild to moderate aortic stenosis 6. History of chronic lower extremity edema 7. History of hypertension 8. Hyperkalemia 9. Anemia; status post transfusion Patient is doing overall well from cardiovascular standpoint and has an improved heart rate off of beta blockers. Given comorbidities, we would prefer an overall conservative approach to his management. He will therefore remain off beta blockers for now. Appreciate nephrology input. The patient has chronic kidney disease; however, with acute on chronic presentation likely secondary to his cardiac output reduction with bradycardia. We will continue to follow. Continue telemetry? Yes
--- NOTE | 2017-02-07 10:53 | NUR ---
NGT REMOVED AT THIS TIME. PASSED BARIUM SWALLOW WITH PUREE AND NECTAR THICK.
--- NOTE | 2017-02-07 11:18 | RADIOLOGY REPORT ---
EXAMINATION: XR MODIFIED BARIUM SWALLOW CLINICAL INFORMATION: Risk of aspiration. COMPARISON: None. TECHNIQUE: A modified barium swallow was performed with speech pathologist in attendance. Pur?e, honey thick, nectar thick, thin, and bread consistencies were given to the patient and the swallowing mechanism was observed fluoroscopically with several spot films taken. FLUOROSCOPY TIME: 3 minute 25 seconds. FINDINGS: With all consistencies, the oral phase of swallowing is normal. With puree, nectar and thin liquids, small amount of residual is seen in the valleculae. With thin liquids taken through a straw, borderline transient penetration of contrast is seen, not eliciting a cough reflex. No evidence of aspiration. IMPRESSION: 1. Transient silent penetration of contrast is seen while drinking thin liquids through a straw. 2. Pooling of contrast is noted in the valleculae with puree, nectar, thin liquids. 3. Speech pathologist assessment issued separately.
--- NOTE | 2017-02-07 12:30 | PN- Nephrology ---
Assessment/Plan Assessment: 1. Acute on chronic kidney disease. Serum creatinine unchanged but he is making urine 2. Bradycardia 3. Chronic kidney disease patient is due to see Juventino Em MD on February 13. At this point, we will maintain that appointment for now. However, if he leaves the hospital towards the end of the week, or over the weekend, it would make no sense for him to see Juventino Em MD on Monday. 4. History of coronary artery disease Suggestion: 1. Continue with current therapy. 2. No urgent dialytic need. Subjective Subjective: Patient is more awake and alert today. He denies any shortness of breath or nausea or vomiting. Objective Vital Signs and I&Os Vital Signs Date Time Temp Pulse Resp B/P B/P Pulse O2 O2 Flow FiO2 Mean Ox Delivery Rate 02/07 0100 96.3 55 14 136/62 97 Room Air 02/07 0000 97 Room Air 02/06 2033 97.1 65 18 142/82 95 Room Air 02/06 2000 95 Room Air 02/06 1600 95 Room Air 02/06 1600 54.0 54 20 138/60 95 Room Air Intake & Output 02/07 1600 02/07 0400 02/06 1600 02/06 0400 02/05 1600 02/05 0400 Intake Total 494 827.4 489 569 7544 100 Output Total 650 700 690 310 180 300 Balance -156 127.4 222 -27 880 -200 Intake, Blood 350 Product Intake, IV 404 677.4 732 183 470 Intake, Oral 0 0 0 0 Intake, Other 90 150 180 100 240 100 Number 0 0 1 1 0 Bowel Movements Output, Urine 650 700 690 310 180 300 Physical Exam: General Appearance: well developed/nourished, no apparent distress, lethargic Head: atraumatic, normal appearance Ears, Nose, Throat: hearing decreased Neck: normal inspection, trachea mid line Respiratory: normal breath sounds Cardiovascular: regular rate/rhythm, edema Abdomen: normal bowel sounds, soft, non-tender, no organomegaly Extremities: Positive edema Neurologic/Psychiatric: More awake and alert today, TANANA Current Medications: Current Medications Sig/Miriam Start time Last Medication Dose Route Stop Time Status Admin Acetaminophen 650 MG Q6-PRN PRN 02/04 1200 AC PO Aspirin 81 MG DAILY 02/05 1000 AC 02/07 PO 1114 Atorvastatin Calcium 20 MG 1700 02/04 1700 AC 02/06 PO 1723 Calcium Gluconate 1 GM ONCE ONE 02/07 0730 DC 02/07 Sodium Chloride 100 ML IV 02/07 0829 0815 Carbidopa/Levodopa 2 TAB TID 02/04 1600 02/07 PO 1114 Dextrose/Sodium 1,000 ML Q20H 02/06 1400 AC 02/06 Chloride IV 1724 Dextrose/Water 1,000 ML .Q24H 02/05 1715 DC 02/05 IV 02/06 1714 1718 Epoetin Luca 20,000 U Q 2 WEEKS 02/04 1830 AC 02/04 SC 2304 Heparin Sodium 5,000 UNIT Q8 02/04 1400 AC 02/07 (Porcine) SC 0607 Levothyroxine Sodium 0.025 MG DAILY AC 02/05 0700 AC 02/07 PO 0607 Phenol 2 SPRAY Q4 HRS NEEDED PRN 02/04 2330 02/05 EXT 0004 Pregabalin 50 MG DAILY 02/05 1000 AC 02/07 PO 1114 Sodium Bicarbonate 1,300 MG BID 02/04 2200 02/07 PO 1114 Results Pertinent Lab Results: Laboratory Tests 02/07 02/06 0421 1610 Chemistry Sodium (137 - 145 mmol/L) 135 L Potassium (3.5 - 5.1 mmol/L) 4.0 Chloride (98 - 107 mmol/L) 98 Carbon Dioxide (22 - 30 mmol/L) 23 Anion Gap (5 - 16) 14 BUN (9 - 20 mg/dL) 105 *H Creatinine (0.7 - 1.2 mg/dL) 4.3 H Estimated GFR (>60 ml/min) 13 L Glucose (65 - 99 mg/dL) 78 Calcium (8.4 - 10.2 mg/dL) 5.9 *L Phosphorus (2.5 - 4.5 mg/dL) 8.2 H Magnesium (1.6 - 2.3 mg/dL) 2.9 H Total Bilirubin (0.2 - 1.3 mg/dL) 0.5 AST (17 - 59 U/L) 10 L ALT (21 - 72 U/L) 14 L Albumin (3.5 - 5.0 g/dL) 2.5 L Hematology CBC w Diff NO MAN DIFF REQ NO MAN DIFF REQ WBC (4.8 - 10.8 /CUMM) 3.8 L 4.7 L RBC (4.70 - 6.10 /CUMM) 2.64 L 2.81 L Hgb (14.0 - 18.0 G/DL) 7.9 L 8.4 L Hct (42 - 52 %) 24.1 L 25.4 L MCV (80.0 - 94.0 FL) 91.1 90.5 MCH (27.0 - 31.0 PG) 29.9 29.9 RDW (11.5 - 14.5 %) 15.7 H 15.9 H Plt Count (130 - 400 /CUMM) 130 133 MPV (7.4 - 10.4 FL) 8.3 8.7 Gran % (42.2 - 75.2 %) 72.7 77.4 H Lymphocytes % (20.5 - 51.1 %) 15.2 L 10.7 L Monocytes % (1.7 - 9.3 %) 10.9 H 11.2 H Eosinophils % (0 - 5 %) 0.8 0.5 Basophils % (0.0 - 2.0 %) 0.4 0.2 Absolute Granulocytes (1.4 - 6.5 /CUMM) 2.7 3.6 Absolute Lymphocytes (1.2 - 3.4 /CUMM) 0.6 L 0.5 L Absolute Monocytes (0.10 - 0.60 /CUMM) 0.4 0.5 Absolute Eosinophils (0.0 - 0.7 /CUMM) 0 0 Absolute Basophils (0.0 - 0.2 /CUMM) 0 0 PUBS MCHC (33.0 - 37.0 G/DL) 32.8 L 33.1 02/06 02/05 0410 1620 Chemistry Sodium (137 - 145 mmol/L) 131 L Potassium (3.5 - 5.1 mmol/L) 4.6 Chloride (98 - 107 mmol/L) 95 L Carbon Dioxide (22 - 30 mmol/L) 22 Anion Gap (5 - 16) 14 BUN (9 - 20 mg/dL) 107 *H Creatinine (0.7 - 1.2 mg/dL) 4.5 H Estimated GFR (>60 ml/min) 12 L Glucose (65 - 99 mg/dL) 83 Calcium (8.4 - 10.2 mg/dL) 5.8 *L Phosphorus (2.5 - 4.5 mg/dL) 8.3 H Magnesium (1.6 - 2.3 mg/dL) 3.0 H Total Bilirubin (0.2 - 1.3 mg/dL) 0.4 AST (17 - 59 U/L) 11 L ALT (21 - 72 U/L) 17 L Lactate Dehydrogenase (313 - 618 U/L) 495 Albumin (3.5 - 5.0 g/dL) 2.5 L TSH (0.270 - 4.200 uIU/mL) 5.910 H Free T4 (0.85 - 1.93 ng/dL) 1.01 Hematology CBC w Diff NO MAN DIFF REQ WBC (4.8 - 10.8 /CUMM) 3.8 L RBC (4.70 - 6.10 /CUMM) 2.53 L Hgb (14.0 - 18.0 G/DL) 7.6 L Hct (42 - 52 %) 22.9 L MCV (80.0 - 94.0 FL) 90.8 MCH (27.0 - 31.0 PG) 30.2 RDW (11.5 - 14.5 %) 15.9 H Plt Count (130 - 400 /CUMM) 122 L MPV (7.4 - 10.4 FL) 8.0 Gran % (42.2 - 75.2 %) 76.6 H Lymphocytes % (20.5 - 51.1 %) 12.7 L Monocytes % (1.7 - 9.3 %) 9.7 H Eosinophils % (0 - 5 %) 0.7 Basophils % (0.0 - 2.0 %) 0.3 Absolute Granulocytes (1.4 - 6.5 /CUMM) 2.9 Absolute Lymphocytes (1.2 - 3.4 /CUMM) 0.5 L Absolute Monocytes (0.10 - 0.60 /CUMM) 0.4 Absolute Eosinophils (0.0 - 0.7 /CUMM) 0 Absolute Basophils (0.0 - 0.2 /CUMM) 0 PUBS MCHC (33.0 - 37.0 G/DL) 33.3 Retic Count (0.5 - 2.0 %) 2.01 H Haptoglobin Pending 02/05 02/05 1620 0805 Chemistry Sodium (137 - 145 mmol/L) 130 L 130 L Potassium (3.5 - 5.1 mmol/L) 5.7 H 5.4 H Chloride (98 - 107 mmol/L) 96 L 95 L Carbon Dioxide (22 - 30 mmol/L) 21 L 21 L Anion Gap (5 - 16) 13 14 BUN (9 - 20 mg/dL) 114 *H 112 *H Creatinine (0.7 - 1.2 mg/dL) 4.4 H 4.3 H Estimated GFR (>60 ml/min) 13 L 13 L BUN/Creatinine Ratio (7 - 25 %) 26.0 H Glucose (65 - 99 mg/dL) 71 93 Calcium (8.4 - 10.2 mg/dL) 6.0 L 6.0 L Phosphorus (2.5 - 4.5 mg/dL) 8.5 H Magnesium (1.6 - 2.3 mg/dL) 3.0 H Total Bilirubin (0.2 - 1.3 mg/dL) 0.6 0.3 AST (17 - 59 U/L) 16 L 12 L ALT (21 - 72 U/L) 17 L 19 L Alkaline Phosphatase (< 127 U/L) 99 Lactate Dehydrogenase (313 - 618 U/L) 677 H Total Protein (6.3 - 8.2 g/dL) 4.7 L Albumin (3.5 - 5.0 g/dL) 2.7 L 2.5 L Globulin (1.9 - 4.2 gm/dL) 2.2 Albumin/Globulin Ratio (1.1 - 2.2 %) 1.1 Vitamin B12 (239 - 931 pg/mL) 586 Folate (2.76 - 20.0 ng/mL) > 20.0 H Hematology CBC w Diff NO MAN DIFF REQ NO MAN DIFF REQ WBC (4.8 - 10.8 /CUMM) 4.2 L 4.6 L RBC (4.70 - 6.10 /CUMM) 2.64 L 2.05 L Hgb (14.0 - 18.0 G/DL) 8.0 L 6.4 *L Hct (42 - 52 %) 24.0 L 19.2 *L MCV (80.0 - 94.0 FL) 90.8 93.6 MCH (27.0 - 31.0 PG) 30.1 31.1 H RDW (11.5 - 14.5 %) 15.7 H 14.9 H Plt Count (130 - 400 /CUMM) 137 119 L MPV (7.4 - 10.4 FL) 9.2 9.0 Gran % (42.2 - 75.2 %) 73.9 82.4 H Lymphocytes % (20.5 - 51.1 %) 14.4 L 9.8 L Monocytes % (1.7 - 9.3 %) 10.3 H 7.2 Eosinophils % (0 - 5 %) 1.1 0.3 Basophils % (0.0 - 2.0 %) 0.3 0.3 Absolute Granulocytes (1.4 - 6.5 /CUMM) 3.1 3.8 Absolute Lymphocytes (1.2 - 3.4 /CUMM) 0.6 L 0.4 L Absolute Monocytes (0.10 - 0.60 /CUMM) 0.4 0.3 Absolute Eosinophils (0.0 - 0.7 /CUMM) 0 0 Absolute Basophils (0.0 - 0.2 /CUMM) 0 0 PUBS MCHC (33.0 - 37.0 G/DL) 33.1 33.2 02/05 02/05 02/04 0500 0320 2225 Chemistry Sodium (137 - 145 mmol/L) 130 L 128 L Potassium (3.5 - 5.1 mmol/L) 5.4 H 6.2 *H Chloride (98 - 107 mmol/L) 94 L 94 L Carbon Dioxide (22 - 30 mmol/L) 22 20 L Anion Gap (5 - 16) 14 14 BUN (9 - 20 mg/dL) 108 *H 112 *H Creatinine (0.7 - 1.2 mg/dL) 4.4 H 4.1 H Estimated GFR (>60 ml/min) 13 L 14 L BUN/Creatinine Ratio (7 - 25 %) 24.5 27.3 H Glucose (65 - 99 mg/dL) 35 *L Calcium (8.4 - 10.2 mg/dL) 6.3 L Phosphorus (2.5 - 4.5 mg/dL) 8.2 H Magnesium (1.6 - 2.3 mg/dL) 3.1 H Total Bilirubin (0.2 - 1.3 mg/dL) 0.3 AST (17 - 59 U/L) 12 L ALT (21 - 72 U/L) 15 L Alkaline Phosphatase (< 127 U/L) 104 Troponin I (<0.11 ng/ml) 0.02 Total Protein (6.3 - 8.2 g/dL) 5.0 L Albumin (3.5 - 5.0 g/dL) 2.5 L Globulin (1.9 - 4.2 gm/dL) 2.5 Albumin/Globulin Ratio (1.1 - 2.2 %) 1.0 L TSH (0.270 - 4.200 uIU/mL) 7.550 H Free T4 (0.85 - 1.93 ng/dL) 1.00 Thyroxine (T4) (4.5 - 10.9 ug/dL) Cancelled 4.9 Hematology CBC w Diff NO MAN DIFF REQ WBC (4.8 - 10.8 /CUMM) 5.9 RBC (4.70 - 6.10 /CUMM) 2.18 L Hgb (14.0 - 18.0 G/DL) 6.6 *L Hct (42 - 52 %) 20.2 L MCV (80.0 - 94.0 FL) 92.7 MCH (27.0 - 31.0 PG) 30.2 RDW (11.5 - 14.5 %) 14.8 H Plt Count (130 - 400 /CUMM) 141 MPV (7.4 - 10.4 FL) 8.1 Gran % (42.2 - 75.2 %) 73.4 Lymphocytes % (20.5 - 51.1 %) 16.1 L Monocytes % (1.7 - 9.3 %) 9.6 H Eosinophils % (0 - 5 %) 0.7 Basophils % (0.0 - 2.0 %) 0.2 Absolute Granulocytes (1.4 - 6.5 /CUMM) 4.3 Absolute Lymphocytes (1.2 - 3.4 /CUMM) 1.0 L Absolute Monocytes (0.10 - 0.60 /CUMM) 0.6 Absolute Eosinophils (0.0 - 0.7 /CUMM) 0 Absolute Basophils (0.0 - 0.2 /CUMM) 0 PUBS MCHC (33.0 - 37.0 G/DL) 32.6 L 02/04 02/04 1620 1520 Chemistry Lactic Acid (0.7 - 2.1 mmol/L) 1.1 Iron (49 - 181 ug/dL) 79 TIBC (261 - 462 ug/dL) 276 Ferritin (17.9 - 464 ng/mL) 217.0 Troponin I (<0.11 ng/ml) < 0.01
[2017-02-07 16:00] VITALS: BP 122/72
[2017-02-07 18:52] VITALS: BP 138/62
[2017-02-07 23:00] VITALS: BP 122/78
[2017-02-08 07:03] VITALS: BP 114/60
--- NOTE | 2017-02-08 08:13 | Transfer of Care Summary ---
Hospital Course Course Hospital Course: 86 yo male with h/o Parkinson's Disease, HTN, hypothyroid, CAD (s/p CABG), and chronic renal failure (stage IV-nephrosclerosis) who is a patient at [facility] who was sent to the ED when he had an observed slide off of his wheelchair to the floor. He was found to have a HR of 40. No syncope described. He denied any chest pain or dyspnea. In the ED he received atropine with an increase in HR to 50. on admission Labs showed worsening of his renal failure and chronic anemia. #Bradycardia- sinus bradycardia on EKG. Was discovered as part of the workup post mechanical fall. ACS was ruled out. Echocardiogram: Normal left and right ventricular systolic function. Mild Left. ventricular hypertrophy. Moderate Aortic stenosis. Moderate. Pulmonary hypertension. Type 1 Diastolic LV dysfunction. Cardiology recommendation against pacemaker at this time. Patient code status was changed to DNR/DNI during this admission. Beta misa was held throughout this admission. #Acute on Chronic Renal Failure Has had progressive renal failure this year. Cr on admission was 4.3 toda is up to 4.5. Most likely secondary to hypertensive nephrosclerosis along with cardiorenal factors. Nephrology recommended against considering pursuing chronic dialysis as it would not improve his quality of life or given any actual quality time. Family seemed to understand and agree. We avoid nephrotoxic and followed his renal function daily. #Acute on Chronic Anemia Had acute of drop in H&H, status post 1 RBCs packed transfusion. Hgb post transfusion are 8-->7.6-->8.4-->7.9. Patient was always found to be guaiac negative. #Parkinson's disease We Continue TANK PUMPER Carbidopa/Levodopa 2mg TID #Hypothyroid- TSH minimally elevated. TSH elevated to 7 with free T4 and T3 within normal limits. 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 We continue Levothyroxine 25mcg daily for now. #CAD/HTN- on Hydralazine, metoprolol, ASA. We held metoprolol due to bradycardia. We held a say because of acute anemia. #HLD- on Simvastatin. We continue Simvastatin. Assessment/Plan: #Bradycardia- sinus bradycardia on EKG. * Continue holding beta misa #Acute on Chronic Renal Failure * Avoid nephrotoxins as possible. * Check electrolytes closely #Acute on Chronic Anemia * Keep hemoglobin above 7 * Recheck CBCs daily * Discuss the need to restart Aspirin prior to discharge #Parkinson's disease * Continue TANK PUMPER Carbidopa/Levodopa 2mg TID #Hypothyroid- TSH minimally elevated. * Continue Levothyroxine 25mcg daily for now * TSH elevated to 7 with free T4 and T3 within normal limits. 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 * Continue hold metoprolol due to bradycardia. #HLD- on Simvastatin. * Continue Simvastatin. DNR/DNI.
--- NOTE | 2017-02-08 09:28 | NUR ---
NOTIFIED BY [employer] AT 08:22 AM PT CONVERTED TO AFIB AT 07:44 AM. PT ASYMPTOMATIC AT THIS TIME WITH NO CHEST PAIN. RATE CONTROLLED IN THE 70S. DR FERNANDEZ & DR FERRELL MADE AWARE. EKG DONE AT THIS TIME. WILL CONTINUE TO MONITOR.
[2017-02-08 09:45] LABS: ABSOLUTE BASOPHIL COUNT 0 /CUMM (0.0-0.2); ABSOLUTE EOSINOPHIL COUNT 0 /CUMM (0.0-0.7); ABSOLUTE GRANULOCYTE CT 3.6 /CUMM (1.4-6.5); ABSOLUTE LYMPH COUNT 0.3 /CUMM (1.2-3.4); ABSOLUTE MONOCYTE COUNT 0.5 /CUMM (0.10-0.60); BASOPHIL % 0 % (0.0-2.0); EOSINOPHIL % 0 % (0-5); GRANULOCYTE % 82.2 % (42.2-75.2); HEMATOCRIT 24.1 % (42-52); MEAN CORPUSCULAR HGB 29.6 PG (27.0-31.0); MEAN CORPUSCULAR VOLUME 89.7 FL (80.0-94.0); MEAN PLATELET VOLUME 8.9 FL (7.4-10.4); PLATELET COUNT 130 /CUMM (130-400); RBC DISTRIBUTION WIDTH 15.1 % (11.5-14.5); RED BLOOD CELL CT 2.68 /CUMM (4.70-6.10); WHITE BLOOD CELL COUNT 4.4 /CUMM (4.8-10.8)
--- NOTE | 2017-02-08 10:13 | PN- Nephrology ---
Assessment/Plan Assessment: 1. Acute on chronic kidney disease. Serum creatinine is better. 2. Bradycardia 3. Chronic kidney disease patient is due to see Juventino Em MD on February 13. At this point, we will maintain that appointment for now. However, if he leaves the hospital towards the end of the week, or over the weekend, it would make no sense for him to see Juventino Em MD on Monday. 4. History of coronary artery disease Suggestion: 1. He may require the introduction of furosemide. 2. Please weigh each and every day 3. Please maintain strict I's and O's Subjective Subjective: Patient is getting cleaned up. He denies any shortness of breath or cough. He is reclining flat Objective Vital Signs and I&Os Vital Signs Date Time Temp Pulse Resp B/P B/P Pulse O2 O2 Flow FiO2 Mean Ox Delivery Rate 02/08 0703 99.6 81 18 114/60 91 Room Air 02/08 0000 Room Air 02/07 2300 98.4 83 16 122/78 95 Room Air 02/07 1852 98.1 76 16 138/62 94 Room Air 02/07 1600 Room Air 02/07 1600 97.4 76 20 122/72 95 Room Air Intake & Output 02/08 1600 02/08 0400 02/07 1600 02/07 0400 02/06 1600 02/06 0400 Intake Total 727 640 7289 827.4 912 283 Output Total 692 509 0799 700 690 310 Balance 110 240 174 127.4 222 -27 Intake, IV 460 400 804 677.4 732 183 Intake, Oral 240 480 0 0 Intake, Other 90 150 180 100 Number 0 0 0 1 1 Bowel Movements Output, Urine 212 075 5543 700 690 310 Patient 172 lb Weight Physical Exam: General Appearance: well developed/nourished, no apparent distress, lethargic Head: atraumatic, normal appearance Ears, Nose, Throat: hearing decreased Neck: normal inspection, trachea mid line Respiratory: normal breath sounds Cardiovascular: regular rate/rhythm, positive edema, no rub Abdomen: normal bowel sounds, soft, non-tender, no organomegaly Extremities: Positive edema border on anasarca Neurologic/Psychiatric: More awake and alert today, LIME. With a mask like facies. Current Medications: Current Medications Sig/Miriam Start time Last Medication Dose Route Stop Time Status Admin Acetaminophen 650 MG Q6-PRN PRN 02/04 1200 AC PO Aspirin 81 MG DAILY 02/05 1000 AC 02/08 PO 0909 Atorvastatin Calcium 20 MG 1700 02/04 1700 AC 02/07 PO 1610 Carbidopa/Levodopa 2 TAB TID 02/04 1600 AC 02/08 PO 0909 Dextrose/Sodium 1,000 ML Q20H 02/06 1400 DC 02/08 Chloride IV 0858 Epoetin Luca 20,000 U Q 2 WEEKS 02/04 1830 AC 02/04 SC 2304 Heparin Sodium 5,000 UNIT Q8 02/04 1400 AC 02/08 (Porcine) SC 0644 Levothyroxine Sodium 0.025 MG DAILY AC 02/05 0700 AC 02/08 PO 0645 Phenol 2 SPRAY Q4 HRS NEEDED PRN 02/04 2330 AC 02/05 EXT 0004 Pregabalin 50 MG DAILY 02/05 1000 AC 02/08 PO 0909 Sodium Bicarbonate 1,300 MG BID 02/04 2200 AC 02/08 PO 0909 Results Pertinent Lab Results: Laboratory Tests 02/08 02/08 02/07 0840 0706 0421 Chemistry Sodium (137 - 145 mmol/L) 139 135 L Potassium (3.5 - 5.1 mmol/L) 4.0 4.0 Chloride (98 - 107 mmol/L) 103 98 Carbon Dioxide (22 - 30 mmol/L) 22 23 Anion Gap (5 - 16) 14 14 BUN (9 - 20 mg/dL) 103 *H 105 *H Creatinine (0.7 - 1.2 mg/dL) 4.0 H 4.3 H Estimated GFR (>60 ml/min) 14 L 13 L Glucose (65 - 99 mg/dL) 78 78 Calcium (8.4 - 10.2 mg/dL) 6.2 L 5.9 *L Phosphorus (2.5 - 4.5 mg/dL) 7.8 H 8.2 H Magnesium (1.6 - 2.3 mg/dL) 2.7 H 2.9 H Total Bilirubin (0.2 - 1.3 mg/dL) 0.6 0.5 AST (17 - 59 U/L) 11 L 10 L ALT (21 - 72 U/L) 16 L 14 L Albumin (3.5 - 5.0 g/dL) 2.5 L 2.5 L Hematology CBC w Diff NO MAN DIFF REQ WBC (4.8 - 10.8 /CUMM) 4.4 L 3.8 L RBC (4.70 - 6.10 /CUMM) 2.68 L 2.64 L Hgb (14.0 - 18.0 G/DL) 7.9 L 7.9 L Hct (42 - 52 %) 24.1 L 24.1 L MCV (80.0 - 94.0 FL) 89.7 91.1 MCH (27.0 - 31.0 PG) 29.6 29.9 RDW (11.5 - 14.5 %) 15.1 H 15.7 H Plt Count (130 - 400 /CUMM) 130 130 MPV (7.4 - 10.4 FL) 8.9 8.3 Gran % (42.2 - 75.2 %) 82.2 H 72.7 Lymphocytes % (20.5 - 51.1 %) 7.4 L 15.2 L Monocytes % (1.7 - 9.3 %) 10.4 H 10.9 H Eosinophils % (0 - 5 %) 0 0.8 Basophils % (0.0 - 2.0 %) 0 L 0.4 Absolute Granulocytes (1.4 - 6.5 /CUMM) 3.6 2.7 Absolute Lymphocytes (1.2 - 3.4 /CUMM) 0.3 L 0.6 L Absolute Monocytes (0.10 - 0.60 /CUMM) 0.5 0.4 Absolute Eosinophils (0.0 - 0.7 /CUMM) 0 0 Absolute Basophils (0.0 - 0.2 /CUMM) 0 0 PUBS MCHC (33.0 - 37.0 G/DL) 33.0 32.8 L 02/06 02/06 1610 0410 Chemistry Sodium (137 - 145 mmol/L) 131 L Potassium (3.5 - 5.1 mmol/L) 4.6 Chloride (98 - 107 mmol/L) 95 L Carbon Dioxide (22 - 30 mmol/L) 22 Anion Gap (5 - 16) 14 BUN (9 - 20 mg/dL) 107 *H Creatinine (0.7 - 1.2 mg/dL) 4.5 H Estimated GFR (>60 ml/min) 12 L Glucose (65 - 99 mg/dL) 83 Calcium (8.4 - 10.2 mg/dL) 5.8 *L Phosphorus (2.5 - 4.5 mg/dL) 8.3 H Magnesium (1.6 - 2.3 mg/dL) 3.0 H Total Bilirubin (0.2 - 1.3 mg/dL) 0.4 AST (17 - 59 U/L) 11 L ALT (21 - 72 U/L) 17 L Lactate Dehydrogenase (313 - 618 U/L) 495 Albumin (3.5 - 5.0 g/dL) 2.5 L TSH (0.270 - 4.200 uIU/mL) 5.910 H Free T4 (0.85 - 1.93 ng/dL) 1.01 Hematology CBC w Diff NO MAN DIFF REQ NO MAN DIFF REQ WBC (4.8 - 10.8 /CUMM) 4.7 L 3.8 L RBC (4.70 - 6.10 /CUMM) 2.81 L 2.53 L Hgb (14.0 - 18.0 G/DL) 8.4 L 7.6 L Hct (42 - 52 %) 25.4 L 22.9 L MCV (80.0 - 94.0 FL) 90.5 90.8 MCH (27.0 - 31.0 PG) 29.9 30.2 RDW (11.5 - 14.5 %) 15.9 H 15.9 H Plt Count (130 - 400 /CUMM) 133 122 L MPV (7.4 - 10.4 FL) 8.7 8.0 Gran % (42.2 - 75.2 %) 77.4 H 76.6 H Lymphocytes % (20.5 - 51.1 %) 10.7 L 12.7 L Monocytes % (1.7 - 9.3 %) 11.2 H 9.7 H Eosinophils % (0 - 5 %) 0.5 0.7 Basophils % (0.0 - 2.0 %) 0.2 0.3 Absolute Granulocytes (1.4 - 6.5 /CUMM) 3.6 2.9 Absolute Lymphocytes (1.2 - 3.4 /CUMM) 0.5 L 0.5 L Absolute Monocytes (0.10 - 0.60 /CUMM) 0.5 0.4 Absolute Eosinophils (0.0 - 0.7 /CUMM) 0 0 Absolute Basophils (0.0 - 0.2 /CUMM) 0 0 PUBS MCHC (33.0 - 37.0 G/DL) 33.1 33.3 Retic Count (0.5 - 2.0 %) 2.01 H 02/05 02/05 1620 1620 Chemistry Sodium (137 - 145 mmol/L) 130 L Potassium (3.5 - 5.1 mmol/L) 5.7 H Chloride (98 - 107 mmol/L) 96 L Carbon Dioxide (22 - 30 mmol/L) 21 L Anion Gap (5 - 16) 13 BUN (9 - 20 mg/dL) 114 *H Creatinine (0.7 - 1.2 mg/dL) 4.4 H Estimated GFR (>60 ml/min) 13 L Glucose (65 - 99 mg/dL) 71 Calcium (8.4 - 10.2 mg/dL) 6.0 L Phosphorus (2.5 - 4.5 mg/dL) 8.5 H Magnesium (1.6 - 2.3 mg/dL) 3.0 H Total Bilirubin (0.2 - 1.3 mg/dL) 0.6 AST (17 - 59 U/L) 16 L ALT (21 - 72 U/L) 17 L Lactate Dehydrogenase (313 - 618 U/L) 677 H Albumin (3.5 - 5.0 g/dL) 2.7 L Vitamin B12 (239 - 931 pg/mL) 586 Folate (2.76 - 20.0 ng/mL) > 20.0 H Hematology CBC w Diff NO MAN DIFF REQ WBC (4.8 - 10.8 /CUMM) 4.2 L RBC (4.70 - 6.10 /CUMM) 2.64 L Hgb (14.0 - 18.0 G/DL) 8.0 L Hct (42 - 52 %) 24.0 L MCV (80.0 - 94.0 FL) 90.8 MCH (27.0 - 31.0 PG) 30.1 RDW (11.5 - 14.5 %) 15.7 H Plt Count (130 - 400 /CUMM) 137 MPV (7.4 - 10.4 FL) 9.2 Gran % (42.2 - 75.2 %) 73.9 Lymphocytes % (20.5 - 51.1 %) 14.4 L Monocytes % (1.7 - 9.3 %) 10.3 H Eosinophils % (0 - 5 %) 1.1 Basophils % (0.0 - 2.0 %) 0.3 Absolute Granulocytes (1.4 - 6.5 /CUMM) 3.1 Absolute Lymphocytes (1.2 - 3.4 /CUMM) 0.6 L Absolute Monocytes (0.10 - 0.60 /CUMM) 0.4 Absolute Eosinophils (0.0 - 0.7 /CUMM) 0 Absolute Basophils (0.0 - 0.2 /CUMM) 0 PUBS MCHC (33.0 - 37.0 G/DL) 33.1 Haptoglobin (43 - 212 mg/dL) 258 H
--- NOTE | 2017-02-08 11:46 | PN- Housestaff ---
See Addendum Subjective Follow-up For: Follow-up bradycardia Follow-up chronic kidney disease Altered mental status -intermittently Complaints: no complaints Tele-Events Since Last Visit: Normal sinus rhythm, first-degree heart block, heart rate between 80-93, [place] interval 0.30, PVCs Subjective: Patient is seen and examined at the bedside. He was able to answer most of the questions. I did bedside swallow and he was able to drink water without any difficulty or the cough or aspiration. Review of Systems Constitutional: Denies: no symptoms. Objective Last 24 Hrs of Vital Signs/I&O Vital Signs Date Time Temp Pulse Resp B/P B/P Pulse O2 O2 Flow FiO2 Mean Ox Delivery Rate 02/08 1447 98.9 65 20 110/56 90 Room Air 02/08 0800 Room Air Room Air 02/08 0703 99.6 81 18 114/60 91 Room Air 02/08 0000 Room Air 02/07 2300 98.4 83 16 122/78 95 Room Air 02/07 1852 98.1 76 16 138/62 94 Room Air Intake & Output 02/08 1600 02/08 0800 02/08 0000 Intake Total 460 640 Output Total 350 400 Balance 110 240 Intake, IV 460 400 Intake, Oral 240 Number 0 Bowel Movements Output, Urine 350 400 Physical Exam General Appearance: Alert, Cooperative, Mild Distress, palor, generalized swelling Cardiovascular: Normal S1, Normal S2, murmur present Lungs: bilateral lower lobe crackles,rales in upper lobes Abdomen: Soft, No Tenderness Extremities: bilateral pittin edema Current Medications: Current Medications Sig/Miriam Start time Last Medication Dose Route Stop Time Status Admin Acetaminophen 650 MG Q6-PRN PRN 02/04 1200 AC PO Aspirin 81 MG DAILY 02/05 1000 AC 02/08 PO 0909 Atorvastatin Calcium 20 MG 1700 02/04 1700 AC 02/08 PO 1705 Carbidopa/Levodopa 2 TAB TID 02/04 1600 AC 02/08 PO 1537 Dextrose/Sodium 1,000 ML Q20H 02/06 1400 DC 02/08 Chloride IV 0858 Epoetin Luca 20,000 U Q 2 WEEKS 02/04 1830 AC 02/04 SC 2304 Furosemide 20 MG DAILY 02/09 1000 AC PO Furosemide 40 MG DAILY 02/08 1311 DC PO Heparin Sodium 5,000 UNIT Q8 02/04 1400 AC 02/08 (Porcine) SC 1530 Levothyroxine Sodium 0.025 MG DAILY AC 02/05 0700 AC 02/08 PO 0645 Patient Medication 1 ED .STK-MED ONE 02/08 1343 LA Teaching ED 02/08 1344 Phenol 2 SPRAY Q4 HRS NEEDED PRN 02/04 2330 02/05 EXT 0004 Pregabalin 50 MG DAILY 02/05 1000 AC 02/08 PO 0909 Sodium Bicarbonate 1,300 MG BID 02/04 2200 AC 02/08 PO 0909 Last 24 Hrs of Lab/Deshawn Results Last 24 Hrs of Labs/Mics: Laboratory Tests 02/08/17 0840: RBC 2.68 L, MCV 89.7, MCH 29.6, RDW 15.1 H, MPV 8.9, Gran % 82.2 H, Lymphocytes % 7.4 L, Monocytes % 10.4 H, Eosinophils % 0, Basophils % 0 L, Absolute Granulocytes 3.6, Absolute Lymphocytes 0.3 L, Absolute Monocytes 0.5, Absolute Eosinophils 0, Absolute Basophils 0, PUBS MCHC 33.0 02/08/17 0706: Anion Gap 14, Estimated GFR 14 L, Glucose 78, Calcium 6.2 L, Phosphorus 7.8 H , Magnesium 2.7 H, Total Bilirubin 0.6, AST 11 L, ALT 16 L, Albumin 2.5 L Assessment/Plan Assessment: 86 yo male with h/o Parkinson's Disease, HTN, hypothyroid, CAD (s/p CABG), and chronic renal failure (stage IV-nephrosclerosis) at [facility] who was sent to the ED when he had an observed slide off of his wheelchair to the floor. He was found to have a HR of 40. No syncope described. He denied any chest pain or dyspnea. In the ED he received atropine with an increase in HR to 50. On admission Labs showed worsening of his renal failure and chronic anemia Assessment - * Chronic kidney disease, stage 5 * Coronary artery disease, status post CABG * Hypertension * Hyperlipidemia * History of gout * History of osteoarthritis * Parkinson's disease * History of chronic anemia * Mild to Moderate aortic stenosis * Anasarca * History of IVCD; sinus bradycardia Chronic kidney disease-stage V-progressive * Family does not want chronic dialysis, because of, comorbidities and patient's functional status. * We will regularly monitor kidney function * We'll remove the Torres catheter in the morning, after that he was not able to produce any urine output, till 4 o'clock. After straight cath, 200 mL came out along with a small clot. * Advised for strict intake output charting Anasarca-secondary to hypoalbuminemia * Advised for tablet Lasix 20 milligrams once a day * Strict intake output charting Anorexia-poor oral intake * Discussed with the family in the detail * Advise to encourage. Instructions given to nursing-encourage for every meal. * Swallow evaluation done today. * If patients fluid intake, will increase we will plan to discharge him tomorrow. Bradycardia * Metoprolol is on hold * Treating conservatively * Today he has an episode of tachycardia ? Atrial fibrillation. Discussed with the [employer] windows engineer. They're not very convinced for atrial fibrillation. Hypothyroid * Continue Levothyroxine 25mcg daily for now * TSH elevated to 7 with free T4 and T3 within normal limits. 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 * Hgb post transfusion are 8-->7.6-->8.4-->7.9. * We will Keep hemoglobin above 7 * We will recheck CBCs daily * Aspirin is in hold Diet-renal diet with fluid restriction CODE STATUS-DNR/DNI Problem List: 1. Sinus bradycardia 2. Hyperkalemia 3. CRI (chronic renal insufficiency) 4. Anemia 5. Accelerated hypertension Pain Ratin Pain Location: not applicable Pain Goal: Remain pain free Pain Plan: Avoid NSAIDs Tomorrow's Labs & Rationales: CBC, BEP, magnesium, phosphorus of follow-up DVT/Prophylaxis: mechanical, pharmacological Consulting Request: Consulting Specialty: Cardiology
--- NOTE | 2017-02-08 11:54 | Discharge Summary ---
Hospital Course Course Consulting Request: Consulting Specialty: Cardiology Allergies: Coded Allergies: acetaminophen (From PERCOCET) (UNKNOWN 12/10/16) oxycodone (From PERCOCET) (UNKNOWN 12/10/16)
--- NOTE | 2017-02-08 12:00 | Discharge Summary ---
Visit Information Visit Dates Admission Date: 02/04/17 Discharge Date: 02/08/17 Hospital Course Course Attending Physician: SHERIN FERRELL MD Primary Care Physician: NANCI RICKS,JYOTI Davis Consulting Request: Consulting Specialty: Cardiology Hospital Course: Pt is 86 yo male with h/o Parkinson's Disease, HTN, hypothyroid, CAD (s/p CABG), and chronic renal failure (stage IV-nephrosclerosis), a resident of [facility], presented to the ED for the evaluation for the bradycardia(heart rate in 40s). No evidence of any syncopal or presyncopal episodes on admission. No evidence of any chest discomfort or trouble breathing in the ED she received atropine, that resulted in improvement of his heart rate. Labs were evident for worsening renal function and chronic anemia Following problems were addressed while patient was in ICU: 1.Bradycardia- sinus bradycardia on EKG: Patient was admitted to ICU ACS was ruled out with negative troponins and nonspecific STT changes.Echocardiogram was done that showed normal left and right ventricular systolic function. Mild Left. ventricular hypertrophy. Moderate Aortic stenosis. Moderate. Pulmonary hypertension. Type 1 Diastolic LV dysfunction. Patient was evaluated by cardiology recommended, to discontinue beta misa, no need of any pacemaker at that time .patient's condition was discussed with the family and core status was changed to DNR/DNI during this admission . Patient remained asymptomatic ,afterwards his clinical condition remained stable. 2. Acute on chronic kidney disease: Renal function has been progressively getting worse during this year. Creatinine on admission was 4.3 that bumped up to 4.5, probably secondary to hypertensive nephrosclerosis along with cardiorenal factors. Patient was evaluated by nephrology recommended no dialysis at that time as , considering pursuing chronic dialysis would not improve his quality of life.Family seemed to understand and agree . 3. Acute on chronic anemia: Had acute of drop in H&H, status post 1 RBCs packed transfusion. Hgb post transfusion are 8-->7.6-->8.4-->7.9. Patient was always found to be guaiac negative. Patient's H&H remained stable afterwards there was no evidence of any acute/over GI bleed. 4. History of IVCD ,irregular heartbeat: Patient was evaluated by cardiology, suspicion of paroxysmal atrial fibrillation was very low. He was originally discussion with the family, and afterwards it was concluded not to pursue with a long-term and equal relation provided underlying risks. 5.History of lower extremity edema Lasix was held due to worsening kidney functions. Home dose of Lasix 20 mg was resumed on discharge after discussing with nephrology. 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 7. History of hypothyroidism- TSH minimally elevated. TSH elevated to 7 with free T4 and T3 within normal limits. 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 We continue Levothyroxine 25mcg daily for now. 8.History of hypertension and hyperlipidemia: Metoprolol was held due to bradycardia, aspirin and hydralazine were continued 9. History of hyperlipidemia: Simvastatin was continued. Heart healthy diet (pure and nectar thick diet ) DNR/DNI. Allergies: Coded Allergies: acetaminophen (From PERCOCET) (UNKNOWN 12/10/16) oxycodone (From PERCOCET) (UNKNOWN 12/10/16) Disposition Summary Disposition Principal Diagnosis: Bradycardia- sinus bradycardia Additional Diagnosis: Acute on Chronic Renal Failure Discharge Disposition: SNF Discharge Instructions General Discharge Information Code Status: Do Not Resucitate/Intubat Patient's Diet: Heart healthy diet (pure and nectar thick diet ) Patient's Activity: As tolerated Follow-Up Instructions/Appts: Please follow-up with your regular physician within 1-2 weeks after discharge. Please return to the ER if symptoms get worse after discharge. Medications at Discharge Discharge Medications: Stop taking the following medications: Metoprolol Succ XL (Toprol XL) 25 MG TAB ORAL DAILY Hydralazine HCl (Hydralazine HCl) 50 MG TABLET ORAL TWICE DAILY Qty = 60 Magnesium Oxide (Magnesium Oxide) 400 MG TABLET ORAL DAILY Qty = 5 Continue taking these medications: Sodium Bicarbonate (Sodium Bicarbonate) 650 MG TABLET 2 Tablet ORAL TWICE DAILY Comments: Last Taken: 12/13/16 Time: 1000 Simvastatin (Simvastatin*) 40 MG TABLET 1 Tablet ORAL Every night Comments: Last Taken: 12/12/16 Time: 1615 Levothyroxine Sodium (Levo-T) 25 MCG TABLET 1 Tablet ORAL DAILY BEFORE BREAKFAST Comments: Last Taken: 12/13/16 Time: 0640 Carbidopa/Levodopa (Carbidopa-Levodopa 25-100 Tab) 25 MG-100 MG TABLET 2 Tablet ORAL THREE TIMES DAILY Comments: Last Taken: NOT GIVEN IN HOSPITAL Time: Aspirin (Aspirin*) 81 MG TAB.CHEW 1 Tablet ORAL DAILY Days = 30 Comments: Last Taken: 12/13/16 Time: 1000 Furosemide (Furosemide) 40 MG TABLET 40 Milligram ORAL DAILY Qty = 5 Instructions: FOR 5 DAYS. TO CHANGE TO 20MG 02/05/17 Pregabalin (Lyrica) 25 MG CAPSULE 1 Capsule ORAL THREE TIMES DAILY Acetaminophen (Tylenol Extra Strength) 500 MG TABLET 2 Tablet ORAL THREE TIMES DAILY Start taking the following new medications: Epoetin Luca (Procrit) 20,000 UNIT/ML VIAL 20,000 Units Inject into fatty tissue EVERY 2 WEEKS Days = 30 No Refills Copies To: NANCI RICKS,JYOTI Davis
--- NOTE | 2017-02-08 12:08 | PN- Cardiology ---
Subjective Subjective: Patient resting comfortably this morning. No palpitations, chest pain, or dyspnea. Cough noted without fever. Objective Vital Signs and I&Os Vital Signs Date Time Temp Pulse Resp B/P B/P Pulse O2 O2 Flow FiO2 Mean Ox Delivery Rate 02/08 0703 99.6 81 18 114/60 91 Room Air 02/08 0000 Room Air 02/07 2300 98.4 83 16 122/78 95 Room Air 02/07 1852 98.1 76 16 138/62 94 Room Air 02/07 1600 Room Air 02/07 1600 97.4 76 20 122/72 95 Room Air Intake & Output 02/08 1600 02/08 0800 02/08 0000 02/07 1600 02/07 0800 02/07 0000 Intake Total 460 640 880 494 827.4 Output Total 350 400 550 650 700 Balance 110 240 330 -156 127.4 Intake, IV 460 400 400 404 677.4 Intake, Oral 240 480 0 0 Intake, Other 90 150 Number 0 0 0 0 Bowel Movements Output, Urine 350 400 550 650 700 Patient 172 lb Weight Physical Exam: General: no apparent distress. Eyes: No obvious scleral icterus. HEENT: No jugular venous distention, Cardiovascular: Normal intensity S1/S2. One out of 6 systolic murmur Respiratory: Scattered rhonchi Abdomen: no guarding or rebound tenderness. Musculoskeletal: No clubbing or cyanosis noted, 1+ lower extremity edema bilaterally Skin: Warm Lymph: No gross lymphadenopathy. Current Medications: Current Medications Sig/Miriam Start time Last Medication Dose Route Stop Time Status Admin Acetaminophen 650 MG Q6-PRN PRN 02/04 1200 AC PO Aspirin 81 MG DAILY 02/05 1000 AC 02/08 PO 0909 Atorvastatin Calcium 20 MG 1700 02/04 1700 AC 02/07 PO 1610 Carbidopa/Levodopa 2 TAB TID 02/04 1600 AC 02/08 PO 0909 Dextrose/Sodium 1,000 ML Q20H 02/06 1400 DC 02/08 Chloride IV 0858 Epoetin Luca 20,000 U Q 2 WEEKS 02/04 1830 AC 02/04 SC 2304 Heparin Sodium 5,000 UNIT Q8 02/04 1400 AC 02/08 (Porcine) SC 0644 Levothyroxine Sodium 0.025 MG DAILY AC 02/05 0700 AC 02/08 PO 0645 Phenol 2 SPRAY Q4 HRS NEEDED PRN 02/04 2330 AC 02/05 EXT 0004 Pregabalin 50 MG DAILY 02/05 1000 AC 02/08 PO 0909 Sodium Bicarbonate 1,300 MG BID 02/04 2200 AC 02/08 PO 0909 Results Last 48 Hrs of Labs/Mics: Laboratory Tests 02/08/17 0840: RBC 2.68 L, MCV 89.7, MCH 29.6, RDW 15.1 H, MPV 8.9, Gran % 82.2 H, Lymphocytes % 7.4 L, Monocytes % 10.4 H, Eosinophils % 0, Basophils % 0 L, Absolute Granulocytes 3.6, Absolute Lymphocytes 0.3 L, Absolute Monocytes 0.5, Absolute Eosinophils 0, Absolute Basophils 0, PUBS MCHC 33.0 02/08/17 0706: Anion Gap 14, Estimated GFR 14 L, Glucose 78, Calcium 6.2 L, Phosphorus 7.8 H , Magnesium 2.7 H, Total Bilirubin 0.6, AST 11 L, ALT 16 L, Albumin 2.5 L 02/07/17 0421: Anion Gap 14, Estimated GFR 13 L, Glucose 78, Calcium 5.9 *L, Phosphorus 8.2 H , Magnesium 2.9 H, Total Bilirubin 0.5, AST 10 L, ALT 14 L, Albumin 2.5 L, CBC w Diff NO MAN DIFF REQ, RBC 2.64 L, MCV 91.1, MCH 29.9, RDW 15.7 H, MPV 8.3, Gran % 72.7, Lymphocytes % 15.2 L, Monocytes % 10.9 H, Eosinophils % 0.8, Basophils % 0.4, Absolute Granulocytes 2.7, Absolute Lymphocytes 0.6 L, Absolute Monocytes 0.4, Absolute Eosinophils 0, Absolute Basophils 0, PUBS MCHC 32.8 L 02/06/17 1610: CBC w Diff NO MAN DIFF REQ, RBC 2.81 L, MCV 90.5, MCH 29.9, RDW 15.9 H, MPV 8.7, Gran % 77.4 H, Lymphocytes % 10.7 L, Monocytes % 11.2 H, Eosinophils % 0.5, Basophils % 0.2, Absolute Granulocytes 3.6, Absolute Lymphocytes 0.5 L, Absolute Monocytes 0.5, Absolute Eosinophils 0, Absolute Basophils 0, PUBS MCHC 33.1 Recent Imaging Studies: Telemetry tracings were personally reviewed and show probable sinus rhythm with first-degree AV block and APCs; difficult to completely exclude afib as there is a large amount of artifact. Twelve-lead ECG tracing from this morning was personally reviewed; shows possible atrial fibrillation with baseline artifact versus sinus rhythm with APCs Assessment/Plan Assessment/Plan 1. Parkinson's 2. CAD/History of remote CABG 3. CKD, progressive 4. Hx IVCD; sinus bradycardia; irregular heartbeat 5. History of mild to moderate aortic stenosis 6. History of chronic lower extremity edema 7. History of hypertension 8. Hyperkalemia 9. Anemia; status post transfusion The patient remains hemodynamically stable. There was a question of possible silent atrial fibrillation on monitoring although I am not entirely convinced; there is irregularity but many of the R-R intervals are the same which may suggest sinus rhythm with frequent APCs; there is a significant amount of baseline artifact which makes interpretation more difficult as well. Even in the setting of low level paroxysmal atrial fibrillation I did discuss with his family and we are in agreement that he would be at high risk for long-term full anticoagulation. Heart rate is within normal limits. Blood pressure is well- controlled. Potassium level currently within normal limits. Hemoglobin low but grossly stable. Resume Lasix if okay with nephrology. Anuel Seymour MD [facility] Continue telemetry? No
--- NOTE | 2017-02-08 13:33 | Patient Discharge Instructions ---
Discharge Instructions General Discharge Information You were seen/treated for: LOW HEART RATE ELEVATED CREATININE Special Instructions: -PLEASE FOLLOW UP WITH YOUR PCP 7 DAYS AFTER DISCHARGE. -PLEASE FOLLOW UP WITH YOUR TRADER 7 DAYS AFTER DISCHARGE. -PLEASE FOLLOW UP WITH YOUR FEATHER MAKER DAYS AFTER DISCHARGE. Diet Continue normal diet: No Recommended Diet: Heart Healthy Activity Full Activity/No Limits: Yes ( TOLERATED) Acute Coronary Syndrome Inclusion Criteria At DC or during hospital stay patient has or had the following: ACS DIAGNOSIS No Discharge Core Measures Meds if any: Prescribed or Continued at Discharge Meds if any: NOT Prescribed or Continued at Discharge Congestive Heart Failure Inclusion Criteria At DC or during hospital stay patient has or had the following: CHF DIAGNOSIS No Discharge Core Measures Meds if any: Prescribed or Continued at Discharge Meds if any: NOT Prescribed or Continued at Discharge Cerebrovascular accident Inclusion Criteria At DC or during hospital stay patient has or had the following: CVA/TIA Diagnosis No Discharge Core Measures Meds if any: Prescribed or Continued at Discharge Meds if any: NOT Prescribed or Continued at Discharge Venous thromboembolism Inclusion Criteria VTE Diagnosis No VTE Type NONE VTE Confirmed by (Test) NONE Discharge Core Measures - Per Current guidelines, there needs to be overlap - treatment for the first 5 days of Warfarin therapy. - If discharged on Warfarin prior to 5 days of - overlap therapy, the patient will need to be - assessed for post discharge needs including - *Post discharge parental anticoagulation - *Warfarin and/or parental anticoagulation education - *Follow up date to check INR post discharge At least 5 days overlap therapy as Inpatient No Meds if any: Prescribed or Continued at Discharge Note: Overlap Therapy is Warfarin and Anticoagulant Meds if any: NOT Prescribed or Continued at Discharge
[2017-02-08] MEDS ORDERED: PROCRIT20000 UNIT SC (13:50)
[2017-02-08 14:47] VITALS: BP 110/56
--- NOTE | 2017-02-08 19:16 | NUR ---
OXYGEN SATURATION CHECKED ON RA AT THIS TIME FOUND TO BE 86%. PT SAT UP IN BED & TOLD TO TAKE DEEP BREATHS WITH NO SUCCESS. PT PLACED ON 1L VIA NC AT THIS TIME. O2 SAT INCREASED TO 95%. LUNGS HAVE CRACKLES IN BASES. DR EKTA KANG MADE AWARE OF ASPIRATION CONCERN. NO FUTHER INTERVENTIONS AT THIS TIME. WILL CONTINUE TO MONITOR.
[2017-02-08 23:21] VITALS: BP 112/62
[2017-02-09 07:50] VITALS: BP 136/78
[2017-02-09 08:07] LABS: ABSOLUTE BASOPHIL COUNT 0 /CUMM (0.0-0.2); ABSOLUTE EOSINOPHIL COUNT 0 /CUMM (0.0-0.7); ABSOLUTE LYMPH COUNT 0.5 /CUMM (1.2-3.4); ABSOLUTE MONOCYTE COUNT 0.5 /CUMM (0.10-0.60); EOSINOPHIL % 0 % (0-5); MEAN PLATELET VOLUME 8.8 FL (7.4-10.4)
[2017-02-09 08:31] LABS: ABSOLUTE GRANULOCYTE CT 2.6 /CUMM (1.4-6.5); BASOPHIL % 0.3 % (0.0-2.0); GRANULOCYTE % 73.3 % (42.2-75.2); HEMATOCRIT 22.2 % (42-52); MEAN CORPUSCULAR HGB 29.3 PG (27.0-31.0); MEAN CORPUSCULAR HGB CONC 32.5 G/DL (33.0-37.0); MEAN CORPUSCULAR VOLUME 90.3 FL (80.0-94.0); PLATELET COUNT 113 /CUMM (130-400); RBC DISTRIBUTION WIDTH 15.4 % (11.5-14.5); RED BLOOD CELL CT 2.46 /CUMM (4.70-6.10); WHITE BLOOD CELL COUNT 3.6 /CUMM (4.8-10.8)
--- NOTE | 2017-02-09 10:35 | PN- Housestaff ---
See Addendum Subjective Follow-up For: Follow-up bradycardia Follow-up chronic kidney disease Altered mental status -intermittently Complaints: pt unable to provide hx Tele-Events Since Last Visit: Normal sinus rhythm, first-degree heart block, heart rate between 79 -98 Subjective: Patient is seen and examined at the bedside. Patient was able to respond to verbal command but he was not oriented to time, place and person. Review of Systems Constitutional: Denies: no symptoms. Comments: Although patient denies any active complaints, but he cannot rely on his complaints as he has baseline dementia Objective Last 24 Hrs of Vital Signs/I&O Vital Signs Date Time Temp Pulse Resp B/P B/P Pulse O2 O2 Flow FiO2 Mean Ox Delivery Rate 02/09 0800 94 Nasal 1.0L Cannula 02/09 0750 98.9 85 20 136/78 94 02/09 0000 92 Nasal 1.0L Cannula 02/08 2321 98.4 68 16 112/62 97 Room Air Intake & Output 02/09 1600 02/09 0800 02/09 0000 Intake Total 400 200 100 Output Total 225 Balance 400 -25 100 Intake, IV 400 200 Intake, Oral 0 100 Number 3 Bowel Movements Output, Urine 225 Physical Exam General Appearance: Cooperative, No Acute Distress, edentulouse, language is partially comprehensible Skin: pale Cardiovascular: S1 and S2 audible and murmur present Lungs: bilateral rales in upper lobe Abdomen: Soft, No Tenderness, distended Extremities: bilateral lower extremeties edema Current Medications: Current Medications Sig/Miriam Start time Last Medication Dose Route Stop Time Status Admin Acetaminophen 650 MG Q6-PRN PRN 02/04 1200 AC PO Aspirin 81 MG DAILY 02/05 1000 AC 02/08 PO 0909 Atorvastatin Calcium 20 MG 1700 02/04 1700 AC 02/08 PO 1705 Carbidopa/Levodopa 2 TAB TID 02/04 1600 AC 02/09 PO 0000 Dextrose/Sodium 1,000 ML Q20H 02/09 0400 02/09 Chloride IV 02/09 2359 0432 Epoetin Luca 20,000 U Q 2 WEEKS 02/04 1830 AC 02/04 SC 2304 Erythromycin 1 EMILE 4 TIMES/DAY 02/09 1054 AC 02/09 OPH 1249 Furosemide 40 MG DAILY 02/10 1000 AC PO Furosemide 20 MG DAILY 02/09 1000 DC PO Heparin Sodium 5,000 UNIT Q8 02/04 1400 AC 02/09 (Porcine) SC 1249 Levothyroxine Sodium 0.025 MG DAILY AC 02/05 0700 AC 02/08 PO 0645 Phenol 2 SPRAY Q4 HRS NEEDED PRN 02/04 2330 AC 02/09 EXT 1250 Pregabalin 50 MG DAILY 02/05 1000 AC 02/08 PO 0909 Sodium Bicarbonate 1,300 MG BID 02/04 2200 AC 02/09 PO 0000 Last 24 Hrs of Lab/Deshawn Results Last 24 Hrs of Labs/Mics: Laboratory Tests 02/09/17 0647: Anion Gap 15, Estimated GFR 14 L, BUN/Creatinine Ratio 23.3, Phosphorus 7.8 H, Magnesium 2.5 H, CBC w Diff NO MAN DIFF REQ, RBC 2.46 L, MCV 90.3, MCH 29.3, RDW 15.4 H, MPV 8.8, Gran % 73.3, Lymphocytes % 13.2 L, Monocytes % 13.2 H, Eosinophils % 0, Basophils % 0.3, Absolute Granulocytes 2.6, Absolute Lymphocytes 0.5 L, Absolute Monocytes 0.5, Absolute Eosinophils 0, Absolute Basophils 0, PUBS MCHC 32.5 L Assessment/Plan Assessment: 86 yo male with h/o Parkinson's Disease, HTN, hypothyroid, CAD (s/p CABG), and chronic renal failure (stage IV-nephrosclerosis) at [facility] who was sent to the ED when he had an observed slide off of his wheelchair to the floor. He was found to have a HR of 40. No syncope described. He denied any chest pain or dyspnea. In the ED he received atropine with an increase in HR to 50. On admission Labs showed worsening of his renal failure and chronic anemia Assessment - * Chronic kidney disease, stage 5 * Coronary artery disease, status post CABG * Hypertension * Hyperlipidemia * History of gout * History of osteoarthritis * Parkinson's disease * History of chronic anemia * Mild to Moderate aortic stenosis * Anasarca * History of IVCD; sinus bradycardia Plan - Discussed with the family about the goals of care, including hospice care. Chronic kidney disease-stage V-progressive * Family does not want chronic dialysis, because of, comorbidities and patient's functional status. * We will regularly monitor kidney function * Straight cath protocol 6hrly * Advised for strict intake output charting Anasarca-secondary to hypoalbuminemia * incresed dose of lasix to 40mg/day * Strict intake output charting Anorexia-poor oral intake * Discussed with the family in the detail * patient failed swallow evaluation, now NPO * Advised to start on IV fluids NS -50cc/hr. Bradycardia * Metoprolol is on hold * Treating conservatively Hypothyroid * Continue Levothyroxine 25mcg daily for now * TSH elevated to 7 with free T4 and T3 within normal limits. * probably Euthyroid sick syndrome Parkinson's disease * Continue REGISTERED PHLEBOTOMIST PART TIME Carbidopa/Levodopa 2mg TID Acute on Chronic Anemia * status post 1 RBCs packed transfusion. * Hgb post transfusion are 8-->7.6-->8.4-->7.9 --7.2 today. * We will Keep hemoglobin above 7 * We will recheck CBCs daily * Aspirin is in hold Diet-NPO CODE STATUS-DNR/DNI Problem List: 1. Sinus bradycardia 2. CKD (chronic kidney disease) 3. Chronic anemia Pain Ratin Pain Location: not applicable Pain Goal: Remain pain free Pain Plan: Avoid NSAIDs Tomorrow's Labs & Rationales: CBC, BEP - f/u for CKD DVT/Prophylaxis: mechanical Consulting Request: Consulting Specialty: Cardiology
--- NOTE | 2017-02-09 10:44 | RADIOLOGY REPORT ---
EXAMINATION: XR CHEST CLINICAL INFORMATION: Cough, question aspiration. Rales in the upper lobes. COMPARISON: Chest radiograph 02/05/2017 TECHNIQUE: 2 views of the chest were obtained. FINDINGS: Stable cardiomegaly. Status post median sternotomy and CABG. Interval extubation. Patchy perihilar airspace disease is noted, increased on the right side compared to prior. No gross pleural effusions. No pneumothorax. No acute osseous abnormality. Postsurgical changes noted within the left humeral head. IMPRESSION: Interval increase in right perihilar airspace disease.
--- NOTE | 2017-02-09 10:48 | PN- Cardiology ---
Subjective Subjective: Telemetry reviewed. Sinus rhythm heart rate in the 70s. Objective Vital Signs and I&Os Vital Signs Date Time Temp Pulse Resp B/P B/P Pulse O2 O2 Flow FiO2 Mean Ox Delivery Rate 02/09 0750 98.9 85 20 136/78 94 02/09 0000 92 Nasal 1.0L Cannula 02/08 2321 98.4 68 16 112/62 97 Room Air 02/08 1447 98.9 65 20 110/56 90 Room Air Intake & Output 02/09 1600 02/09 0800 02/09 0000 02/08 1600 02/08 0800 02/08 0000 Intake Total 200 100 400 460 640 Output Total 225 0 350 400 Balance -25 100 400 110 240 Intake, IV 200 460 400 Intake, Oral 100 400 240 Number 0 Bowel Movements Output, Urine 225 0 350 400 Physical Exam: Patient recognizes me but otherwise confused. Remains in restraints. Head normocephalic atraumatic Eyes sclera anicteric conjunctiva showed pallor X shock muscles were normal Neck no jugular venous distention no thyroid masses no palpable nodes Chest lungs were clear bilaterally anterior lung reynolds Heart regular grade 2/6 systolic murmur Abdomen soft no organomegaly nontender Extremities 1+ edema Neurological no obvious motor or sensory deficits Current Medications: Current Medications Sig/Miriam Start time Last Medication Dose Route Stop Time Status Admin Acetaminophen 650 MG Q6-PRN PRN 02/04 1200 AC PO Aspirin 81 MG DAILY 02/05 1000 AC 02/08 PO 0909 Atorvastatin Calcium 20 MG 1700 02/04 1700 AC 02/08 PO 1705 Carbidopa/Levodopa 2 TAB TID 02/04 1600 AC 02/09 PO 0000 Dextrose/Sodium 1,000 ML Q20H 02/09 0400 AC 02/09 Chloride IV 02/09 2359 0432 Epoetin Luca 20,000 U Q 2 WEEKS 02/04 1830 AC 02/04 SC 2304 Furosemide 20 MG DAILY 02/09 1000 AC PO Furosemide 40 MG DAILY 02/08 1311 DC PO Heparin Sodium 5,000 UNIT Q8 02/04 1400 AC 02/09 (Porcine) SC 0000 Levothyroxine Sodium 0.025 MG DAILY AC 02/05 0700 AC 02/08 PO 0645 Patient Medication 1 ED .STK-MED ONE 02/08 1343 DC Teaching ED 02/08 1344 Phenol 2 SPRAY Q4 HRS NEEDED PRN 02/04 2330 AC 02/05 EXT 0004 Pregabalin 50 MG DAILY 02/05 1000 AC 02/08 PO 0909 Sodium Bicarbonate 1,300 MG BID 02/04 2200 AC 02/09 PO 0000 Results Last 48 Hrs of Labs/Mics: Laboratory Tests 02/09/17 0647: Anion Gap 15, Estimated GFR 14 L, BUN/Creatinine Ratio 23.3, Phosphorus 7.8 H, Magnesium 2.5 H, CBC w Diff NO MAN DIFF REQ, RBC 2.46 L, MCV 90.3, MCH 29.3, RDW 15.4 H, MPV 8.8, Gran % 73.3, Lymphocytes % 13.2 L, Monocytes % 13.2 H, Eosinophils % 0, Basophils % 0.3, Absolute Granulocytes 2.6, Absolute Lymphocytes 0.5 L, Absolute Monocytes 0.5, Absolute Eosinophils 0, Absolute Basophils 0, PUBS MCHC 32.5 L 02/08/17 0840: RBC 2.68 L, MCV 89.7, MCH 29.6, RDW 15.1 H, MPV 8.9, Gran % 82.2 H, Lymphocytes % 7.4 L, Monocytes % 10.4 H, Eosinophils % 0, Basophils % 0 L, Absolute Granulocytes 3.6, Absolute Lymphocytes 0.3 L, Absolute Monocytes 0.5, Absolute Eosinophils 0, Absolute Basophils 0, PUBS MCHC 33.0 02/08/17 0706: Anion Gap 14, Estimated GFR 14 L, Glucose 78, Calcium 6.2 L, Phosphorus 7.8 H , Magnesium 2.7 H, Total Bilirubin 0.6, AST 11 L, ALT 16 L, Albumin 2.5 L Recent Imaging Studies: Chest x-rayInterval increase in right perihilar airspace disease. Assessment/Plan Assessment/Plan In summary this 86-year-old gentleman has the following problems 1. Parkinson's 2. CAD/History of remote CABG 3. CKD, progressive 4. Hx IVCD; sinus bradycardia; irregular heartbeat 5. History of mild to moderate aortic stenosis 6. History of chronic lower extremity edema 7. History of hypertension 8. Hyperkalemia 9. Anemia; status post transfusion He has multiple near end-stage problems that have included advanced renal failure GFR of 14, dementia Parkinson's disease marked anemia is related to renal failure and electrolyte disturbance probably related to renal failure as well. His heart rate is improved now that his potassium has improved. I think the bigger issue is to obtain end-of-life instructions from the family. I will suggest he be on hospice as mild many of his issues are near terminal. Lasix could be resumed at 20 mg a day if okay with nephrology. Continue telemetry? Yes
--- NOTE | 2017-02-09 11:42 | PN- Nephrology ---
Assessment/Plan Assessment: 1. Acute on chronic kidney disease. Serum creatinine is 4.2 today. 2. Bradycardia 3. Chronic kidney disease patient is due to see Juventino Em MD on February 13. History of coronary artery disease Suggestion: 1. Furosemide has been started. I do not think that 20 mg a day will be a sufficient dose given his creatinine of 4.2. The furosemide should be increased to [address] Rausch has raised the issue of hospice as a possibility here. I think that is reasonable. As stated earlier in his hospital stay, I do not think renal replacement therapy meaning dialysis is advisable for this person. It may be reasonable simply to treat what we are able with the understanding that if he goes back to an extended care facility, that he ought not to be transferred back to the hospital. I was told earlier there were concerns with regards to his swallowing last night. I would not favor the placement of the PEG. It may be helpful to have palliative care help the family and the patient sort out these issues. Subjective Subjective: Patient sitting up in a chair area he denies shortness of breath cough. He feels well. Objective Vital Signs and I&Os Vital Signs Date Time Temp Pulse Resp B/P B/P Pulse O2 O2 Flow FiO2 Mean Ox Delivery Rate 02/09 0800 94 Nasal 1.0L Cannula 02/09 0750 98.9 85 20 136/78 94 02/09 0000 92 Nasal 1.0L Cannula 02/08 2321 98.4 68 16 112/62 97 Room Air 02/08 1447 98.9 65 20 110/56 90 Room Air Intake & Output 02/09 1600 02/09 0400 02/08 1600 02/08 0400 02/07 1600 02/07 0400 Intake Total 200 100 472 960 5239 827.4 Output Total 225 130 303 7244 700 Balance -25 100 510 240 174 127.4 Intake, IV 200 460 400 804 677.4 Intake, Oral 100 400 240 480 0 Intake, Other 90 150 Number 0 0 0 Bowel Movements Output, Urine 225 342 093 4718 700 Patient 172 lb Weight Physical Exam: General Appearance: well developed/nourished, no apparent distress, lethargic Head: atraumatic, normal appearance Ears, Nose, Throat: hearing decreased Neck: normal inspection, trachea mid line Respiratory: normal breath sounds Cardiovascular: regular rate/rhythm, positive edema, no rub Abdomen: normal bowel sounds, soft, non-tender, no organomegaly Extremities: Positive edema border on anasarca Neurologic/Psychiatric: More awake and alert today, [place]. With a mask like facies. Current Medications: Current Medications Sig/Miriam Start time Last Medication Dose Route Stop Time Status Admin Acetaminophen 650 MG Q6-PRN PRN 02/04 1200 AC PO Aspirin 81 MG DAILY 02/05 1000 AC 02/08 PO 0909 Atorvastatin Calcium 20 MG 1700 02/04 1700 AC 02/08 PO 1705 Carbidopa/Levodopa 2 TAB TID 02/04 1600 AC 02/09 PO 0000 Dextrose/Sodium 1,000 ML Q20H 02/09 0400 AC 02/09 Chloride IV 02/09 2359 0432 Epoetin Luca 20,000 U Q 2 WEEKS 02/04 1830 AC 02/04 SC 2304 Erythromycin 1 EMILE 4 TIMES/DAY 02/09 1054 AC OPH Furosemide 20 MG DAILY 02/09 1000 AC PO Furosemide 40 MG DAILY 02/08 1311 DC PO Heparin Sodium 5,000 UNIT Q8 02/04 1400 AC 02/09 (Porcine) SC 0000 Levothyroxine Sodium 0.025 MG DAILY AC 02/05 0700 AC 02/08 PO 0645 Patient Medication 1 ED .STK-MED ONE 02/08 1343 DC Teaching ED 02/08 1344 Phenol 2 SPRAY Q4 HRS NEEDED PRN 02/04 2330 AC 02/05 EXT 0004 Pregabalin 50 MG DAILY 02/05 1000 AC 02/08 PO 0909 Sodium Bicarbonate 1,300 MG BID 02/04 2200 AC 02/09 PO 0000 Results Pertinent Lab Results: Laboratory Tests 02/09 02/08 02/08 0647 0840 0706 Chemistry Sodium (137 - 145 mmol/L) 142 139 Potassium (3.5 - 5.1 mmol/L) 3.9 4.0 Chloride (98 - 107 mmol/L) 107 103 Carbon Dioxide (22 - 30 mmol/L) 20 L 22 Anion Gap (5 - 16) 15 14 BUN (9 - 20 mg/dL) 98 H 103 *H Creatinine (0.7 - 1.2 mg/dL) 4.2 H 4.0 H Estimated GFR (>60 ml/min) 14 L 14 L BUN/Creatinine Ratio (7 - 25 %) 23.3 Glucose (65 - 99 mg/dL) 78 Calcium (8.4 - 10.2 mg/dL) 6.2 L Phosphorus (2.5 - 4.5 mg/dL) 7.8 H 7.8 H Magnesium (1.6 - 2.3 mg/dL) 2.5 H 2.7 H Total Bilirubin (0.2 - 1.3 mg/dL) 0.6 AST (17 - 59 U/L) 11 L ALT (21 - 72 U/L) 16 L Albumin (3.5 - 5.0 g/dL) 2.5 L Hematology CBC w Diff NO MAN DIFF REQ WBC (4.8 - 10.8 /CUMM) 3.6 L 4.4 L RBC (4.70 - 6.10 /CUMM) 2.46 L 2.68 L Hgb (14.0 - 18.0 G/DL) 7.2 *L 7.9 L Hct (42 - 52 %) 22.2 L 24.1 L MCV (80.0 - 94.0 FL) 90.3 89.7 MCH (27.0 - 31.0 PG) 29.3 29.6 RDW (11.5 - 14.5 %) 15.4 H 15.1 H Plt Count (130 - 400 /CUMM) 113 L 130 MPV (7.4 - 10.4 FL) 8.8 8.9 Gran % (42.2 - 75.2 %) 73.3 82.2 H Lymphocytes % (20.5 - 51.1 %) 13.2 L 7.4 L Monocytes % (1.7 - 9.3 %) 13.2 H 10.4 H Eosinophils % (0 - 5 %) 0 0 Basophils % (0.0 - 2.0 %) 0.3 0 L Absolute Granulocytes (1.4 - 6.5 /CUMM) 2.6 3.6 Absolute Lymphocytes (1.2 - 3.4 /CUMM) 0.5 L 0.3 L Absolute Monocytes (0.10 - 0.60 /CUMM) 0.5 0.5 Absolute Eosinophils (0.0 - 0.7 /CUMM) 0 0 Absolute Basophils (0.0 - 0.2 /CUMM) 0 0 PUBS MCHC (33.0 - 37.0 G/DL) 32.5 L 33.0 02/07 02/06 0421 1610 Chemistry Sodium (137 - 145 mmol/L) 135 L Potassium (3.5 - 5.1 mmol/L) 4.0 Chloride (98 - 107 mmol/L) 98 Carbon Dioxide (22 - 30 mmol/L) 23 Anion Gap (5 - 16) 14 BUN (9 - 20 mg/dL) 105 *H Creatinine (0.7 - 1.2 mg/dL) 4.3 H Estimated GFR (>60 ml/min) 13 L Glucose (65 - 99 mg/dL) 78 Calcium (8.4 - 10.2 mg/dL) 5.9 *L Phosphorus (2.5 - 4.5 mg/dL) 8.2 H Magnesium (1.6 - 2.3 mg/dL) 2.9 H Total Bilirubin (0.2 - 1.3 mg/dL) 0.5 AST (17 - 59 U/L) 10 L ALT (21 - 72 U/L) 14 L Albumin (3.5 - 5.0 g/dL) 2.5 L Hematology CBC w Diff NO MAN DIFF REQ NO MAN DIFF REQ WBC (4.8 - 10.8 /CUMM) 3.8 L 4.7 L RBC (4.70 - 6.10 /CUMM) 2.64 L 2.81 L Hgb (14.0 - 18.0 G/DL) 7.9 L 8.4 L Hct (42 - 52 %) 24.1 L 25.4 L MCV (80.0 - 94.0 FL) 91.1 90.5 MCH (27.0 - 31.0 PG) 29.9 29.9 RDW (11.5 - 14.5 %) 15.7 H 15.9 H Plt Count (130 - 400 /CUMM) 130 133 MPV (7.4 - 10.4 FL) 8.3 8.7 Gran % (42.2 - 75.2 %) 72.7 77.4 H Lymphocytes % (20.5 - 51.1 %) 15.2 L 10.7 L Monocytes % (1.7 - 9.3 %) 10.9 H 11.2 H Eosinophils % (0 - 5 %) 0.8 0.5 Basophils % (0.0 - 2.0 %) 0.4 0.2 Absolute Granulocytes (1.4 - 6.5 /CUMM) 2.7 3.6 Absolute Lymphocytes (1.2 - 3.4 /CUMM) 0.6 L 0.5 L Absolute Monocytes (0.10 - 0.60 /CUMM) 0.4 0.5 Absolute Eosinophils (0.0 - 0.7 /CUMM) 0 0 Absolute Basophils (0.0 - 0.2 /CUMM) 0 0 PUBS MCHC (33.0 - 37.0 G/DL) 32.8 L 33.1
--- NOTE | 2017-02-09 13:40 | PN- Att Addend ---
Attending MD Review Statement Attending Statement Attending MD Statement: examined this patient, discuss w/resident/PA/[employer], agreed w/resident/PA/[employer], reviewed EMR data (avail), discussed w/nursing, discussed w/ case mgmt Attending Assessment/Plan: Laboratory Tests 02/09/17 0647: Anion Gap 15, Estimated GFR 14 L, BUN/Creatinine Ratio 23.3, Phosphorus 7.8 H, Magnesium 2.5 H, CBC w Diff NO MAN DIFF REQ, RBC 2.46 L, MCV 90.3, MCH 29.3, RDW 15.4 H, MPV 8.8, Gran % 73.3, Lymphocytes % 13.2 L, Monocytes % 13.2 H, Eosinophils % 0, Basophils % 0.3, Absolute Granulocytes 2.6, Absolute Lymphocytes 0.5 L, Absolute Monocytes 0.5, Absolute Eosinophils 0, Absolute Basophils 0, PUBS MCHC 32.5 L Vital Signs Date Time Temp Pulse Resp B/P B/P Pulse O2 O2 Flow FiO2 Mean Ox Delivery Rate 02/09 0800 94 Nasal 1.0L Cannula 02/09 0750 98.9 85 20 136/78 94 02/09 0000 92 Nasal 1.0L Cannula 02/08 2321 98.4 68 16 112/62 97 Room Air 02/08 1447 98.9 65 20 110/56 90 Room Air Dysphagia- pt failed swallow eval again and we are keeping her NPO. will have a discussion with family about goals of care . Pt with his underlying dementia and advanced CKD. Hb of 7.2 today. Nephrology following. Cr 4.2 today which is pts baseline. Bradycardia resolved now. metoprolol held.
[2017-02-09 15:20] VITALS: BP 128/68
--- NOTE | 2017-02-09 18:35 | NUR ---
PTS HR DROPPED TO 44 AT 1745. EKTA KANG INFORMED
--- NOTE | 2017-02-09 18:36 | NUR ---
PTS HR CURRENTLY IS 89
[2017-02-09 22:48] VITALS: BP 132/74
[2017-02-10 07:16] VITALS: BP 130/72
--- NOTE | 2017-02-10 07:16 | PN- Housestaff ---
Subjective Follow-up For: Follow-up bradycardia Follow-up chronic kidney disease Altered mental status -intermittently Complaints: no complaints Tele-Events Since Last Visit: Normal sinus rhythm, first-degree heart block, heart rate between 75-82, ectopic Subjective: Patient is seen and examined at the bedside. He was responding to verbal command.We tried bed side swallow and he drink without any difficulty but later he had an episode of bilious vomiting. We gave her injection Tigan intramuscularly one time. Review of Systems Constitutional: Denies: no symptoms. Objective Last 24 Hrs of Vital Signs/I&O Vital Signs Date Time Temp Pulse Resp B/P B/P Pulse O2 O2 Flow FiO2 Mean Ox Delivery Rate 02/10 0716 98.6 86 20 130/72 91 Room Air 02/10 0000 93 Room Air 02/09 2248 98.0 68 22 132/74 92 Room Air 02/09 1520 98.5 73 20 128/68 94 Room Air Intake & Output 02/10 1600 02/10 0800 02/10 0000 Intake Total 600 400 Output Total Balance 600 400 Intake, IV 600 400 Intake, Oral 0 0 Number 1 Bowel Movements Patient 48.081 kg Weight Weight Radha Lift Measurement Method Physical Exam General Appearance: Alert, No Acute Distress, anasarca, Skin: pale, Cardiovascular: Normal S1, Normal S2 Lungs: bilateral rales on upper part of chest and crackles on the bases Abdomen: Soft, No Tenderness Neurological: edentulous, able to produce complete sentence, Extremities: No Clubbing, No Cyanosis, bilateral pitting edema Current Medications: Current Medications Sig/Miriam Start time Last Medication Dose Route Stop Time Status Admin Acetaminophen 650 MG Q6-PRN PRN 02/04 1200 DCD PO Aspirin 300 MG DAILY 02/10 1000 DCD 02/10 IN 0957 Aspirin 81 MG DAILY 02/05 1000 DC 02/08 PO 0909 Atorvastatin Calcium 20 MG 1700 02/04 1700 DCD 02/08 PO 1705 Carbidopa/Levodopa 2 TAB TID 02/04 1600 DCD 02/09 PO 0000 Dextrose/Sodium 1,000 ML Q13H 02/10 0915 DCD 02/10 Chloride IV 0953 Dextrose/Sodium 1,000 ML Q20H 02/10 0845 DC Chloride IV Dextrose/Sodium 1,000 ML Q20H 02/10 0600 DC 02/10 Chloride IV 0554 Dextrose/Sodium 1,000 ML Q20H 02/09 0400 DC 02/09 Chloride IV 02/09 2359 0432 Epoetin Luca 20,000 U Q 2 WEEKS 02/04 1830 DCD 02/04 SC 2304 Erythromycin 1 EMILE 4 TIMES/DAY 02/09 1054 DCD 02/10 OPH 0945 Furosemide 40 MG DAILY 02/10 1000 CAN PO Furosemide 20 MG DAILY 02/09 1000 DC PO Heparin Sodium 5,000 UNIT Q8 02/04 1400 DCD 02/10 (Porcine) SC 0623 Levothyroxine Sodium 12.5 MCG DAILY 02/10 1000 DCD 02/10 IV 0942 Levothyroxine Sodium 0.025 MG DAILY AC 02/05 0700 DC 02/08 PO 0645 Patient Medication 1 ED .STK-MED ONE 02/10 1403 DC Teaching ED 02/10 1404 Phenol 2 SPRAY Q4 HRS NEEDED PRN 02/04 2330 DCD 02/09 EXT 1250 Pregabalin 50 MG DAILY 02/05 1000 DCD 02/08 PO 0909 Sodium Bicarbonate 1,300 MG BID 02/04 2200 DCD 02/09 PO 0000 Trimethobenzamide HCl 200 MG ONCE ONE 02/10 0815 DC 02/10 IM 02/10 0816 0809 Last 24 Hrs of Lab/Deshawn Results Last 24 Hrs of Labs/Mics: Laboratory Tests 02/10/17 0623: Anion Gap 16, Estimated GFR 12 L, BUN/Creatinine Ratio 24.1, CBC w Diff MAN DIFF ORDERED, RBC 2.69 L, MCV 91.6, MCH 30.1, RDW 15.4 H, MPV 9.1, Gran % 82.5 H, Lymphocytes % 10.5 L, Monocytes % 7.0, Eosinophils % 0, Basophils % 0 L, Absolute Granulocytes 5.0, Segmented Neutrophils 80 H, Band Neutrophils 5, Absolute Lymphocytes 0.6 L, Lymphocytes 10 L, Monocytes 5, Absolute Monocytes 0.4, Absolute Eosinophils 0, Absolute Basophils 0, Nucleated RBCs 5 H, Platelet Estimate DECREASED, Hypochromic-Microcytic 2+, Schistocytes RARE, PUBS MCHC 32.8 L, Fld Total RBCs Counted 100 Assessment/Plan Assessment: 86 yo male with h/o Parkinson's Disease, HTN, hypothyroid, CAD (s/p CABG), and chronic renal failure (stage IV-nephrosclerosis) at [facility] who was sent to the ED when he had an observed slide off of his wheelchair to the floor. He was found to have a HR of 40. No syncope described. He denied any chest pain or dyspnea. In the ED he received atropine with an increase in HR to 50. On admission Labs showed worsening of his renal failure and chronic anemia Assessment - * Chronic kidney disease, stage 5 * Coronary artery disease, status post CABG * Hypertension * Hyperlipidemia * History of gout * History of osteoarthritis * Parkinson's disease * History of chronic anemia * Mild to Moderate aortic stenosis * Anasarca * History of IVCD; sinus bradycardia Plan - Discussed with the family about the goals of care, including hospice care. They are willing to change it to Inpatient hospice. * Discussed with the family in the detail * patient failed swallow evaluation, now NPO * Family does not want chronic dialysis, because of, comorbidities and patient's functional status. * Straight cath protocol 6hrly * Treating conservatively Diet-NPO CODE STATUS-DNR/DNI Problem List: 1. CHF (congestive heart failure) 2. Sinus bradycardia 3. Hyperkalemia 4. CRI (chronic renal insufficiency) 5. Anemia 6. CKD (chronic kidney disease) Pain Ratin Pain Location: not applicable Pain Goal: Remain pain free Pain Plan: no NSAIDS Tomorrow's Labs & Rationales: not required as pt is inpatient hospice DVT/Prophylaxis: mechanical, pharmacological Consulting Request: Consulting Specialty: Cardiology
[2017-02-10 08:33] LABS: ABSOLUTE BASOPHIL COUNT 0 /CUMM (0.0-0.2); ABSOLUTE EOSINOPHIL COUNT 0 /CUMM (0.0-0.7); ABSOLUTE LYMPH COUNT 0.6 /CUMM (1.2-3.4); ABSOLUTE MONOCYTE COUNT 0.4 /CUMM (0.10-0.60); BASOPHIL % 0 % (0.0-2.0); EOSINOPHIL % 0 % (0-5); GRANULOCYTE % 82.5 % (42.2-75.2); HEMATOCRIT 24.6 % (42-52); MEAN CORPUSCULAR HGB 30.1 PG (27.0-31.0); MEAN CORPUSCULAR HGB CONC 32.8 G/DL (33.0-37.0); MEAN CORPUSCULAR VOLUME 91.6 FL (80.0-94.0); MEAN PLATELET VOLUME 9.1 FL (7.4-10.4); PLATELET COUNT 110 /CUMM (130-400); RBC DISTRIBUTION WIDTH 15.4 % (11.5-14.5); RED BLOOD CELL CT 2.69 /CUMM (4.70-6.10)
--- NOTE | 2017-02-10 10:42 | PN- Nephrology ---
Assessment/Plan Assessment: 1. Acute on chronic kidney disease. Serum creatinine is 4.5 today. His serum creatinine is increasing slowly. Issues with voiding noted. Patient denies this. 2. Bradycardia 3. Chronic kidney disease patient is due to see Juventino Em MD on February 13. 4. History of coronary artery disease Suggestion: 1. He currently is getting 75 mL an hour. I would favor decreasing this to 50. This until his by mouth intake is clarified. Subjective Subjective: Patient offers no complaints. Denies shortness of breath or cough. Objective Vital Signs and I&Os Vital Signs Date Time Temp Pulse Resp B/P B/P Pulse O2 O2 Flow FiO2 Mean Ox Delivery Rate 02/10 0716 98.6 86 20 130/72 91 Room Air 02/10 0000 93 Room Air 02/09 2248 98.0 68 22 132/74 92 Room Air 02/09 1520 98.5 73 20 128/68 94 Room Air Intake & Output 02/10 1600 02/10 0400 02/09 1600 02/09 0400 02/08 1600 02/08 0400 Intake Total 600 400 600 100 860 640 Output Total 225 350 400 Balance 600 400 375 100 510 240 Intake, IV 600 400 600 460 400 Intake, Oral 0 0 0 100 400 240 Number 1 3 0 Bowel Movements Output, Urine 225 350 400 Patient 106 lb Weight Weight Radha Lift Measurement Method Physical Exam: General Appearance: well developed/nourished, no apparent distress, lethargic Head: atraumatic, normal appearance Ears, Nose, Throat: hearing decreased Neck: normal inspection, trachea mid line Respiratory: Rhonchi bilaterally Cardiovascular: regular rate/rhythm, positive edema, no rub Abdomen: normal bowel sounds, soft, non-tender, no organomegaly Extremities: Positive edema border on anasarca Neurologic/Psychiatric: More awake and alert today, [place]. With a mask like facies. Current Medications: Current Medications Sig/Miriam Start time Last Medication Dose Route Stop Time Status Admin Acetaminophen 650 MG Q6-PRN PRN 02/04 1200 AC PO Aspirin 300 MG DAILY 02/10 1000 AC 02/10 SD 0957 Aspirin 81 MG DAILY 02/05 1000 DC 02/08 PO 0909 Atorvastatin Calcium 20 MG 1700 02/04 1700 AC 02/08 PO 1705 Carbidopa/Levodopa 2 TAB TID 02/04 1600 AC 02/09 PO 0000 Dextrose/Sodium 1,000 ML Q13H 02/10 0915 AC 02/10 Chloride IV 0953 Dextrose/Sodium 1,000 ML Q20H 02/10 0845 DC Chloride IV Dextrose/Sodium 1,000 ML Q20H 02/10 0600 DC 02/10 Chloride IV 0554 Dextrose/Sodium 1,000 ML Q20H 02/09 0400 DC 02/09 Chloride IV 02/09 2359 0432 Epoetin Luca 20,000 U Q 2 WEEKS 02/04 1830 AC 02/04 SC 2304 Erythromycin 1 EMILE 4 TIMES/DAY 02/09 1054 AC 02/10 OPH 0945 Furosemide 40 MG DAILY 02/10 1000 CAN PO Furosemide 20 MG DAILY 02/09 1000 DC PO Heparin Sodium 5,000 UNIT Q8 02/04 1400 AC 02/10 (Porcine) SC 0623 Levothyroxine Sodium 12.5 MCG DAILY 02/10 1000 AC 02/10 IV 0942 Levothyroxine Sodium 0.025 MG DAILY AC 02/05 0700 DC 02/08 PO 0645 Phenol 2 SPRAY Q4 HRS NEEDED PRN 02/04 2330 AC 02/09 EXT 1250 Pregabalin 50 MG DAILY 02/05 1000 AC 02/08 PO 0909 Sodium Bicarbonate 1,300 MG BID 02/04 2200 AC 02/09 PO 0000 Trimethobenzamide HCl 200 MG ONCE ONE 02/10 0815 DC 02/10 IM 02/10 0816 0809 Results Pertinent Lab Results: Laboratory Tests 02/10 02/09 0623 0647 Chemistry Sodium (137 - 145 mmol/L) 145 142 Potassium (3.5 - 5.1 mmol/L) 3.9 3.9 Chloride (98 - 107 mmol/L) 108 H 107 Carbon Dioxide (22 - 30 mmol/L) 22 20 L Anion Gap (5 - 16) 16 15 BUN (9 - 20 mg/dL) 111 *H 98 H Creatinine (0.7 - 1.2 mg/dL) 4.6 H 4.2 H Estimated GFR (>60 ml/min) 12 L 14 L BUN/Creatinine Ratio (7 - 25 %) 24.1 23.3 Phosphorus (2.5 - 4.5 mg/dL) 7.8 H Magnesium (1.6 - 2.3 mg/dL) 2.5 H Hematology CBC w Diff MAN DIFF ORDERED NO MAN DIFF REQ WBC (4.8 - 10.8 /CUMM) 6.0 3.6 L RBC (4.70 - 6.10 /CUMM) 2.69 L 2.46 L Hgb (14.0 - 18.0 G/DL) 8.1 L 7.2 *L Hct (42 - 52 %) 24.6 L 22.2 L MCV (80.0 - 94.0 FL) 91.6 90.3 MCH (27.0 - 31.0 PG) 30.1 29.3 RDW (11.5 - 14.5 %) 15.4 H 15.4 H Plt Count (130 - 400 /CUMM) 110 L 113 L MPV (7.4 - 10.4 FL) 9.1 8.8 Gran % (42.2 - 75.2 %) 82.5 H 73.3 Lymphocytes % (20.5 - 51.1 %) 10.5 L 13.2 L Monocytes % (1.7 - 9.3 %) 7.0 13.2 H Eosinophils % (0 - 5 %) 0 0 Basophils % (0.0 - 2.0 %) 0 L 0.3 Absolute Granulocytes (1.4 - 6.5 /CUMM) 5.0 2.6 Segmented Neutrophils (42.2 - 75.2 %) 80 H Band Neutrophils (0.0 - 5.0 %) 5 Absolute Lymphocytes (1.2 - 3.4 /CUMM) 0.6 L 0.5 L Lymphocytes (20.5 - 51.1 %) 10 L Monocytes (1.7 - 9.3 %) 5 Absolute Monocytes (0.10 - 0.60 /CUMM) 0.4 0.5 Absolute Eosinophils (0.0 - 0.7 /CUMM) 0 0 Absolute Basophils (0.0 - 0.2 /CUMM) 0 0 Nucleated RBCs (0.0 - 0.0 /100WBC) 5 H Platelet Estimate (ADEQUATE) DECREASED Hypochromic-Microcytic 2+ Schistocytes RARE PUBS MCHC (33.0 - 37.0 G/DL) 32.8 L 32.5 L Other Body Source Fld Total RBCs Counted (%) 100 02/08 02/08 0840 0706 Chemistry Sodium (137 - 145 mmol/L) 139 Potassium (3.5 - 5.1 mmol/L) 4.0 Chloride (98 - 107 mmol/L) 103 Carbon Dioxide (22 - 30 mmol/L) 22 Anion Gap (5 - 16) 14 BUN (9 - 20 mg/dL) 103 *H Creatinine (0.7 - 1.2 mg/dL) 4.0 H Estimated GFR (>60 ml/min) 14 L Glucose (65 - 99 mg/dL) 78 Calcium (8.4 - 10.2 mg/dL) 6.2 L Phosphorus (2.5 - 4.5 mg/dL) 7.8 H Magnesium (1.6 - 2.3 mg/dL) 2.7 H Total Bilirubin (0.2 - 1.3 mg/dL) 0.6 AST (17 - 59 U/L) 11 L ALT (21 - 72 U/L) 16 L Albumin (3.5 - 5.0 g/dL) 2.5 L Hematology WBC (4.8 - 10.8 /CUMM) 4.4 L RBC (4.70 - 6.10 /CUMM) 2.68 L Hgb (14.0 - 18.0 G/DL) 7.9 L Hct (42 - 52 %) 24.1 L MCV (80.0 - 94.0 FL) 89.7 MCH (27.0 - 31.0 PG) 29.6 RDW (11.5 - 14.5 %) 15.1 H Plt Count (130 - 400 /CUMM) 130 MPV (7.4 - 10.4 FL) 8.9 Gran % (42.2 - 75.2 %) 82.2 H Lymphocytes % (20.5 - 51.1 %) 7.4 L Monocytes % (1.7 - 9.3 %) 10.4 H Eosinophils % (0 - 5 %) 0 Basophils % (0.0 - 2.0 %) 0 L Absolute Granulocytes (1.4 - 6.5 /CUMM) 3.6 Absolute Lymphocytes (1.2 - 3.4 /CUMM) 0.3 L Absolute Monocytes (0.10 - 0.60 /CUMM) 0.5 Absolute Eosinophils (0.0 - 0.7 /CUMM) 0 Absolute Basophils (0.0 - 0.2 /CUMM) 0 PUBS MCHC (33.0 - 37.0 G/DL) 33.0
--- NOTE | 2017-02-10 11:37 | PN- Cardiology ---
Subjective Subjective: Resting comfortably. No complaints. Objective Vital Signs and I&Os Vital Signs Date Time Temp Pulse Resp B/P B/P Pulse O2 O2 Flow FiO2 Mean Ox Delivery Rate 02/10 0716 98.6 86 20 130/72 91 Room Air 02/10 0000 93 Room Air 02/09 2248 98.0 68 22 132/74 92 Room Air 02/09 1520 98.5 73 20 128/68 94 Room Air Intake & Output 02/10 1600 02/10 0800 02/10 0000 02/09 1600 02/09 0800 02/09 0000 Intake Total 600 400 400 200 100 Output Total 225 Balance 600 400 400 -25 100 Intake, IV 600 400 400 200 Intake, Oral 0 0 0 100 Number 1 3 Bowel Movements Output, Urine 225 Patient 106 lb Weight Weight Radha Lift Measurement Method Physical Exam: General: no apparent distress. Eyes: No obvious scleral icterus. HEENT: No jugular venous distention, Cardiovascular: Normal intensity S1/S2. One out of 6 systolic murmur Respiratory: Scattered rhonchi Abdomen: no guarding or rebound tenderness. Musculoskeletal: No clubbing or cyanosis noted, trace lower extremity edema bilaterally Skin: Warm Lymph: No gross lymphadenopathy. Current Medications: Current Medications Sig/Miriam Start time Last Medication Dose Route Stop Time Status Admin Acetaminophen 650 MG Q6-PRN PRN 02/04 1200 AC PO Aspirin 300 MG DAILY 02/10 1000 AC 02/10 MD 0957 Aspirin 81 MG DAILY 02/05 1000 DC 02/08 PO 0909 Atorvastatin Calcium 20 MG 1700 02/04 1700 AC 02/08 PO 1705 Carbidopa/Levodopa 2 TAB TID 02/04 1600 AC 02/09 PO 0000 Dextrose/Sodium 1,000 ML Q13H 02/10 0915 AC 02/10 Chloride IV 0953 Dextrose/Sodium 1,000 ML Q20H 02/10 0845 DC Chloride IV Dextrose/Sodium 1,000 ML Q20H 02/10 0600 DC 02/10 Chloride IV 0554 Dextrose/Sodium 1,000 ML Q20H 02/09 0400 DC 02/09 Chloride IV 02/09 2359 0432 Epoetin Luca 20,000 U Q 2 WEEKS 02/04 1830 AC 02/04 SC 2304 Erythromycin 1 EMILE 4 TIMES/DAY 02/09 1054 AC 02/10 OPH 0945 Furosemide 40 MG DAILY 02/10 1000 CAN PO Furosemide 20 MG DAILY 02/09 1000 DC PO Heparin Sodium 5,000 UNIT Q8 02/04 1400 AC 02/10 (Porcine) SC 0623 Levothyroxine Sodium 12.5 MCG DAILY 02/10 1000 AC 02/10 IV 0942 Levothyroxine Sodium 0.025 MG DAILY AC 02/05 0700 DC 02/08 PO 0645 Phenol 2 SPRAY Q4 HRS NEEDED PRN 02/04 2330 AC 02/09 EXT 1250 Pregabalin 50 MG DAILY 02/05 1000 AC 02/08 PO 0909 Sodium Bicarbonate 1,300 MG BID 02/04 2200 AC 02/09 PO 0000 Trimethobenzamide HCl 200 MG ONCE ONE 02/10 0815 DC 02/10 IM 02/10 0816 0809 Results Last 48 Hrs of Labs/Mics: Laboratory Tests 02/10/17 0623: Anion Gap 16, Estimated GFR 12 L, BUN/Creatinine Ratio 24.1, CBC w Diff MAN DIFF ORDERED, RBC 2.69 L, MCV 91.6, MCH 30.1, RDW 15.4 H, MPV 9.1, Gran % 82.5 H, Lymphocytes % 10.5 L, Monocytes % 7.0, Eosinophils % 0, Basophils % 0 L, Absolute Granulocytes 5.0, Segmented Neutrophils 80 H, Band Neutrophils 5, Absolute Lymphocytes 0.6 L, Lymphocytes 10 L, Monocytes 5, Absolute Monocytes 0.4, Absolute Eosinophils 0, Absolute Basophils 0, Nucleated RBCs 5 H, Platelet Estimate DECREASED, Hypochromic-Microcytic 2+, Schistocytes RARE, PUBS MCHC 32.8 L, Fld Total RBCs Counted 100 02/09/17 0647: Anion Gap 15, Estimated GFR 14 L, BUN/Creatinine Ratio 23.3, Phosphorus 7.8 H, Magnesium 2.5 H, CBC w Diff NO MAN DIFF REQ, RBC 2.46 L, MCV 90.3, MCH 29.3, RDW 15.4 H, MPV 8.8, Gran % 73.3, Lymphocytes % 13.2 L, Monocytes % 13.2 H, Eosinophils % 0, Basophils % 0.3, Absolute Granulocytes 2.6, Absolute Lymphocytes 0.5 L, Absolute Monocytes 0.5, Absolute Eosinophils 0, Absolute Basophils 0, PUBS MCHC 32.5 L Recent Imaging Studies: Telemetry tracings were personally reviewed and shows sinus rhythm with PVCs and PACs CXR yesterday IMPRESSION: Interval increase in right perihilar airspace disease. Assessment/Plan Assessment/Plan 1. Parkinson's 2. CAD/History of remote CABG 3. CKD, progressive 4. Hx IVCD; sinus bradycardia; irregular heartbeat 5. History of mild to moderate aortic stenosis 6. History of chronic lower extremity edema 7. History of hypertension 8. Hyperkalemia 9. Anemia; status post transfusion The patient remains hemodynamically stable. Telemetry reveals sinus rhythm with PACs and PVCs. Creatinine 4.6 today. Would continue oral Lasix. Aspiration likely but respiratory status appears stable. Discussed goals of care. No evidence of significant bradycardia at this time. Anuel Seymour MD [facility] Continue telemetry? No
--- NOTE | 2017-02-10 11:55 | PN- Att Addend ---
Attending MD Review Statement Attending Statement Attending MD Statement: examined this patient, discuss w/resident/PA/PRODUCT LEAD, agreed w/resident/PA/PRODUCT LEAD, discussed with family, reviewed EMR data (avail), discussed w/ nursing, discussed w/case mgmt Attending Assessment/Plan: Laboratory Tests 02/10/17 0623: Anion Gap 16, Estimated GFR 12 L, BUN/Creatinine Ratio 24.1, CBC w Diff MAN DIFF ORDERED, RBC 2.69 L, MCV 91.6, MCH 30.1, RDW 15.4 H, MPV 9.1, Gran % 82.5 H, Lymphocytes % 10.5 L, Monocytes % 7.0, Eosinophils % 0, Basophils % 0 L, Absolute Granulocytes 5.0, Segmented Neutrophils 80 H, Band Neutrophils 5, Absolute Lymphocytes 0.6 L, Lymphocytes 10 L, Monocytes 5, Absolute Monocytes 0.4, Absolute Eosinophils 0, Absolute Basophils 0, Nucleated RBCs 5 H, Platelet Estimate DECREASED, Hypochromic-Microcytic 2+, Schistocytes RARE, PUBS MCHC 32.8 L, Fld Total RBCs Counted 100 Vital Signs Date Time Temp Pulse Resp B/P B/P Pulse O2 O2 Flow FiO2 Mean Ox Delivery Rate 02/10 0716 98.6 86 20 130/72 91 Room Air 02/10 0000 93 Room Air 02/09 2248 98.0 68 22 132/74 92 Room Air 02/09 1520 98.5 73 20 128/68 94 Room Air Pt still npo due to dysphagia. Pt alert and was able to tell me that he is in hospital. Pt bradycardia resolves. Hb stable. Having low urine output. On basal fluids as pt NPO and we increased the rate to 75ml/hr today. Nausea - given tigan and will give prn zofran. CKD- cr today is 4.6. Had a family discussion about goals of care. They are interested in talking with Hospice and gave me a copy of living will showing pt does not want artificial nutrition. d/w case management. Hospice consult placed.
== END 2017-02-10 14:01 | disposition hospice, home (50) | DRG 309 ==
LOC: ERH 07:47 → CRI 09:47 → 1NO 09:47 → ERHI 09:47 → ENRESERV 10:18 → CRI 12:22 → 1NO 02-07 18:21 → 2NA 02-10 13:54
PROVIDERS: Emergency Medicine; Internal Medicine; Internal Medicine Adolescent Medicine; Internal Medicine Endocrinology, Diabetes & Metabolism; Student in an Organized Health Care Education/Training Program; ADMIT Internal Medicine
PROC: 30233N1 Transfusion of Nonautologous Red Blood Cells into Peripheral Vein, Percutaneous Approach (ICD-10-PCS; principal; 2017-02-05)
DX: R00.1 Bradycardia, unspecified (principal); N17.9 Acute kidney failure, unspecified; E87.1 Hypo-osmolality and hyponatremia; G20 Parkinson's disease; I12.0 Hypertensive chronic kidney disease with stage 5 chronic kidney disease or end stage renal disease; I27.2 Other secondary pulmonary hypertension; N18.5 Chronic kidney disease, stage 5; D62 Acute posthemorrhagic anemia; E87.5 Hyperkalemia; Z95.1 Presence of aortocoronary bypass graft; D64.9 Anemia, unspecified; I35.0 Nonrheumatic aortic (valve) stenosis; R13.10 Dysphagia, unspecified; M10.9 Gout, unspecified; E03.9 Hypothyroidism, unspecified; I44.0 Atrioventricular block, first degree; I45.10 Unspecified right bundle-branch block; I48.0 Paroxysmal atrial fibrillation; Z66 Do not resuscitate; R60.1 Generalized edema; I25.10 Atherosclerotic heart disease of native coronary artery without angina pectoris; Z87.891 Personal history of nicotine dependence
CPT/HCPCS: 1NSP; CCU; 36415; 74230; 81001; 82436; 83010; 86920; 93005; 93010; 93306; 96374; 97110-GO; 97161-GP; 97530-GO; 99291; J0461; J0610; J0885-EC; J1644; J1815; J3250; J3490; J7042; P9016

== ENCOUNTER 2017-02-10 14:07 | Inpatient (IN) | payer OTHER ==
[~2017-02-10 14:07] MED LIST changes: +LYRICA25 M1 PO; +PROCRIT20000 UNIT SC; +TYLENOL EXTRA500 M2 PO
[2017-02-10 14:23] VITALS: BP 128/70
[2017-02-11 06:59] VITALS: BP 140/80
--- NOTE | 2017-02-11 09:28 | PN- Att Addend ---
Attending Addendum Attending Brief Note Pt is awake denies any pain and appears comfortable. On exam blood pressure is about 90/50 and he is breathing at about 18-22, afebrile Lungs decreased breath sounds bilaterally, heart is S1-S2 regular and abdomen is soft. This is an 86-year-old male with extensive cardiac history and very advanced renal failure with Parkinson's disease. He is not a candidate for dialysis both because of his underlying medical condition and his explicit wishes and is now on hospice. He is comfortable and imminently dying. He has a lot of secretions with coarse breath sounds so he has on propanol [id number]. He is awake alert and eating he's having a regular diet with thickened liquids.
[2017-02-12 07:00] VITALS: BP 146/80
--- NOTE | 2017-02-12 09:13 | PN- Att Addend ---
Attending Addendum Attending Brief Note Pt is comfortable and denies any pain. He has a lot of secretions and is on a modified diet for comfort. On exam pressure is 140/80, ecchymotic upper extremities, lungs with decreased breath sounds and coarse breath sounds. 86-year-old male with advanced CKD not a candidate for dialysis imminently dying on hospice and comfortable. I added a subcutaneous option for his morphine and lorazepam should he lose IV access. He is on Robinal and scopolamine around-the -clock for his increased secretions.
[2017-02-13 06:40] VITALS: BP 144/72
--- NOTE | 2017-02-13 13:45 | PN- Hospice ---
Subjective Subjective: Pt. is minimally responsive with care. He appears comfortable. Son at bedside. He does have audible tracheal congestion. He received morphine x 2 today. Review of Systems Constitutional: Reports: see HPI. Objective Last 24 Hrs of Vital Signs/I&O Vital Signs Date Time Temp Pulse Resp B/P B/P Pulse O2 O2 Flow FiO2 Mean Ox Delivery Rate 02/13 0640 97.9 63 22 144/72 86 Nasal Cannula 02/13 0000 Nasal 2.0L Cannula Intake & Output 02/13 1600 02/13 0800 02/13 0000 Intake Total Output Total Balance Number 0 Bowel Movements Physical Exam General Appearance: no apparent distress, sedated Head: normal appearance Respiratory: no respiratory distress, tracheal congestion Cardiovascular: regular rate/rhythm, edema (to extremities) Abdomen: soft, non-tender Skin: ecchymosis (bilat UEs) Current Medications: Current Medications Sig/Miriam Start time Last Medication Dose Route Stop Time Status Admin Acetaminophen 650 MG Q4P PRN 02/10 1415 AC WI Glycerin/Mineral Oil 1 EMILE Q8P PRN 02/10 1415 AC 02/13 TOP 0929 Glycopyrrolate 400 MCG Q4 02/13 1400 AC 02/13 SC 1304 Glycopyrrolate 400 MCG Q4 02/10 1800 AC 02/13 IV 0929 Lorazepam 1 MG Q4 HRS NEEDED PRN 02/12 0915 AC SC Lorazepam 1 MG Q4P PRN 02/10 1415 AC 02/12 IV 1938 Morphine Sulfate 2 MG Q2 HRS NEEDED PRN / 0915 AC 02/13 SC 1304 Morphine Sulfate 2 MG Q2P PRN 02/10 1415 AC IV Prochlorperazine 5 MG Q6P PRN 02/10 1430 AC IV Scopolamine HBr 1 PAT Q72 02/10 1430 AC 02/13 TOP 0929 Assessment/Plan Assessment/Recommendations: 86 year-old male with Parkinson's disease with acute on chronic kidney disease, anemia and dysphagia receiving hospice care. Increased secretions. Continue scheduled Robinul and increase scopolamine to 2 patches. Problem List: 1. Acute renal failure superimposed on chronic kidney disease 2. Dysphagia 3. Parkinsons disease
--- NOTE | 2017-02-13 14:36 | History & Physical ---
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 He was found to have bradycardia at a heart rate of 40 but no syncopal episode was described. Patient was denying any chest pain or dyspnea at the time of presentation. His vital signs were within normal range except his heart rate was down to 40. Pacer pads were placed in emergency room and patient was given a dose of atropine and heart rate went up to 51. Labs showed worsening of his renal failure and chronic anemia. Patient was admitted to ICU at the beginning and was seen by nephrology, cardiology and ICU team at the beginning and subsequently was transferred to telemetry floor. In ICU ACS was ruled out with negative troponins and nonspecific ST-T wave changes. Echocardiogram was done that showed normal left and right ventricular systolic function. Mild left ventricle hypertrophy and moderate aortic stenosis with moderate pulmonary hypertension and type I diastolic left ventricular dysfunction. His beta blockers were discontinued and decision was made not to place permanent pacemaker and discussion was done with family and CODE STATUS was changed to DNR/DNI. Patient remained asymptomatic throughout his hospital course His renal function has been progressively getting worse during this year and creatinine on admission was 4.3 that bumped to 4.5 most likely secondary to hypertensive nephrosclerosis along with cardiorenal factors. Patient was evaluated by nephrology and it was decided not to dialyze him at this point as she considering chronic dialysis but not improve his quality of life and patient 's family understood and agreed with the conservative management. Patient had dropped his H&H and was given 1 unit of packed red cell transfusion and his H&H remained stable with no evidence of any acute GI bleed. Patient was also noted to have lower extremity edema but due to his worsening kidney function Lasix was held. Due to his history of parkinsonism his carbidopa/levodopa 2 mg 3 times a day was continued. Patient was also continued levothyroxin 25 MCG daily. Patient was also provided with aspirin and hydralazine but metoprolol due to bradycardia was held. Pt. noted to have difficulty with swallowing and seen by speech therapy. Due to dysphagia, pt was made NPO. Due to his worsening status family meeting was held and family decided and agreed for hospice. Patient was evaluated by hospice nurse and was transferred from telemetry floor to hospice floor and we will manage him as hospice from now. Allergies/Medications Allergies: Coded Allergies: acetaminophen (From PERCOCET) (UNKNOWN 12/10/16) oxycodone (From PERCOCET) (UNKNOWN 12/10/16) Past History Medical History Neurological: Parkinson's disease EENT: VENETIE Cardiovascular: CAD, hypertension, hyperlipidemia Respiratory: NONE Gastrointestinal: diverticulosis ATROPHIC GASTRITIS Hepatic: NONE Renal: chronic kidney disease Musculoskeletal: gout, osteoarthritis Psychiatric: NONE Endocrine: NONE Blood Disorders: NONE Cancer(s): NONE Other Medical Hx: paget disease History of MRSA: No History of VRE: No History of CDIFF: No Surgical History Surgical History: CABG, knee replacement, RIGHT INGUINAL HERNIA REPAIR Past Family/Social History Family History: Noncontributory Psychosocial History: , 2 children. Functional Ability: Required assistance with ADLs/IADLs Review of Systems Review of Systems Constitutional: Reports: see HPI. Exam & Diagnostic Data Last 24 Hrs of Vital Signs/I&O Vital Signs Date Time Temp Pulse Resp B/P B/P Pulse O2 O2 Flow FiO2 Mean Ox Delivery Rate 02/10 1423 97.4 58 20 128/70 99 Nasal 2.0L Cannula Physical Exam: General Appearance :Lethargic, No Acute Distress, confused, pale Skin: bruises on B/L upper ext. skin abrasions on both knees. skin break down between 3rd, 4th and 5th digit without any erythema or discharge. extremely tender to touch. HEENT: dry mucous membranes Cardiovascular: bradycardia, cyanosis of bilat. fingernails Lungs: b/l basal crackles Abdomen: Normal Bowel Sounds, Soft, No Tenderness Extremities: 1+ edema B/L. Last 24 Hrs of Labs/Deshawn: Notable for Hgb 8.1, Hct 24.6, Bun 111, Cr 4.6, GFR 12 Diagnostic Data CXR Results markedly low lung volumes. Cardiomegaly with moderate vascular congestion is suspected. Assessment/Plan Assessment: 86 year-old male with Parkinson's disease with acute on chronic kidney disease, anemia and dysphagia being admitted to hospice service. Will order as needed morphine 2mg IV every 2 hrs for pain/dyspnea, Ativan 1 mg IV every 4 hrs. Will order scopolamine and Robinul scheduled for congestion. SOLA LARA 02/17/17 1133: Assessment/Plan Assessment: Agree with the above assessment and plan. Dr Sola Lara
[2017-02-14 06:52] VITALS: BP 114/60
--- NOTE | 2017-02-14 10:11 | PN- Att Addend ---
Attending Addendum Attending Brief Note Patient seen and examined. Plan of care discussed with the medical team and the patient. Available lab work and radiology test reports were reviewed. Case discussed with nursing staff. Patient has been noted to have increased secretions. His scopolamine patch was doubled. Vital Signs Date Time Temp Pulse Resp B/P B/P Pulse O2 O2 Flow FiO2 Mean Ox Delivery Rate 02/15 800 Nasal 2.0L Cannula 02/14 0652 99.3 96 20 114/60 94 Nasal 2.0L Cannula 02/14 0000 Nasal 2.0L Cannula 02/13 1600 Nasal 2.0L Cannula Intake & Output 02/14 1600 02/14 0802/14 0000 Intake Total 0 0 Output Total Balance 0 0 Intake, Oral 0 0 Exam: General: Patient is obtunded but is trying to respond to verbal stimuli. He appears somewhat restless; tongue is coated and dry CVS: S1 plus S2 without any murmur or gallops Chest: Few scattered crepitation without any wheeze. There is no respiratory distress. Abdomen: Soft nontender, bowel sound present, no guarding or rebound [employer]IDENCE [employer]PER[employer]: Obtunded and confused and restless does not follow commands Extremities: No edema; no clubbing or cyanosis noted No new labs done Assessment * Parkinson's disease end-stage * Acute and chronic renal failure * Anemia * Severe dysphagia Plan * Agree with increasing scopolamine patch * Continue Ativan and morphine for comfort; patient may need more frequent dosage of Ativan
[2017-02-14 15:22] VITALS: BP 128/60
--- NOTE | 2017-02-15 14:41 | Discharge Summary ---
Visit Information Visit Dates Admission Date: 02/10/17 Discharge Date: 02/15/17 Hospital Course Course Attending Physician: SOLA LARA MD Primary Care Physician: JYOTI CHRISTINE MD Hospital Course: 86 year-old male with Parkinson's disease with acute on chronic kidney disease, anemia and dysphagia, admitted to hospice service. He was kept comfortable with as needed morphine for dyspnea, ativan for anxiety, scheduled Robinul and scopolamine for secretions, until he passed peacefully earlier this morning. Allergies: Coded Allergies: acetaminophen (From PERCOCET) (UNKNOWN 12/10/16) oxycodone (From PERCOCET) (UNKNOWN 12/10/16) Disposition Summary Disposition Principal Diagnosis: Acute renal failure Chronic kidney disease dysphagia Parkinson's disease Additional Diagnosis: Hypertension Discharge Disposition: Discharge Instructions General Discharge Information Code Status: Hospice Patient's Diet: N/A Patient's Activity: N/A Follow-Up Instructions/Appts: N/A Copies To: JYOTI CHRISTINE MD Attending MD Review Statement Documenting Attending: SOLA LARA MD Other Findings: Agree with the above discharge plan. See my separate attending note for more details.
== END 2017-02-15 04:35 | disposition expired | DRG 684 ==
LOC: 2NA 14:07
PROVIDERS: ADMIT Internal Medicine
DX: N17.9 Acute kidney failure, unspecified (principal); G20 Parkinson's disease; I27.2 Other secondary pulmonary hypertension; Z51.5 Encounter for palliative care; R13.10 Dysphagia, unspecified; Z95.1 Presence of aortocoronary bypass graft; D64.9 Anemia, unspecified; N18.4 Chronic kidney disease, stage 4 (severe); I25.10 Atherosclerotic heart disease of native coronary artery without angina pectoris; E03.9 Hypothyroidism, unspecified; I12.9 Hypertensive chronic kidney disease with stage 1 through stage 4 chronic kidney disease, or unspecified chronic kidney disease; E78.5 Hyperlipidemia, unspecified; M10.9 Gout, unspecified
CPT/HCPCS: 2NASP; J0780